=== PATIENT | male | born 1945 | race Caucasian/White ===

== ENCOUNTER 2020-12-20 11:10 | Inpatient (IN) | payer MEDICARE, OTHER ==
[2020-12-20] MEDS ORDERED: Sodium Chloride 0.9% 10 ML Syringe FLUSH PRN ×2 (11:28→12:58)
--- NOTE | 2020-12-20 12:07 | EDM.PDOC ---
ED HPI GENERAL MEDICAL PROBLEM - General Chief Complaint: Respiratory Problem Stated Complaint: COVID 3 WEEKS AGO NOT BETTER Time Seen by Provider: 12/20/20 11:15 Source of Information: Reports: Patient, RN Notes Reviewed History Limitations: Reports: No Limitations - History of Present Illness INITIAL COMMENTS - FREE TEXT/NARRATIVE: Patient is a 75-year-old male presenting to the emergency department with complaints of a 3-week history of Covid symptoms. He states he started feeling ill on 01 December. Symptoms included cough with excessive mucus production, body aches, intense headaches, fatigue, subjective fever, nausea, and decreased appetite. He was tested for Covid on December 06 and found to be positive. The symptoms have been persistent since that time. He reports mild shortness of breath and coughing fits due to mucus in his sinuses and airway. He has been checking his oxygen saturations at home and state for the most part it has been around 90. Patient does have a history of left-sided lung cancer for which she just completed chemotherapy 1 month ago. He states he wears oxygen at night but has never required supplemental oxygen during the day. He denies any chest pain, but states that sometimes when he coughs he gets a sharp pain in his left ribs. He has had no vomiting or diarrhea. On triage, patient's oxygen saturation was found to be 81% on room air. 2 L of oxygen by nasal cannula was applied and the saturations increased to 92%. Vital signs are otherwise normal. Blood pressure 135/78, pulse 84, temperature 97.7, respiratory rate 12. Generalized Pain Score (Numeric/FACES): 6 - Related Data Allergies Allergy/AdvReac Type Severity Reaction Status Date / Time celecoxib [From Celebrex] AdvReac Diarrhea Verified 04/02/20 16:57 Home Meds: Home Meds busPIRone HCl [Buspirone HCl] 15 mg PO TID 01/10/15 [History] traZODone 100 mg PO BEDTIME 01/10/15 [History] Albuterol Sulfate [Proair Hfa] 2 puff IH Q4HR PRN 10/16/15 [History] Escitalopram [Lexapro] 20 mg PO DAILY 10/16/15 [History] Tiotropium [Spiriva HandiHaler] 18 mcg INH DAILY 10/16/15 [History] atorvaSTATin [Lipitor] 80 mg PO BEDTIME 10/16/15 [History] Fluticasone Propionate [24 Hour Allergy] 2 spray NS DAILY 12/20/20 [History] Hydrocortisone [Hydrocortisone 2.5% Crm] 1 gm TOP BID PRN 12/20/20 [History] Losartan [Cozaar] 50 mg PO DAILY 12/20/20 [History] guaiFENesin [Guaifenesin] 600 mg PO DAILY 12/20/20 [History] metFORMIN [Glucophage XR] 500 mg PO DAILY 12/20/20 [History] Past Medical History Other HEENT History: wears dentures, chronic sinus infections, cerumen impaction, nasal congestion Cardiovascular History: Reports: High Cholesterol, Hypertension, Stents Other Respiratory History: laryngitis, pharyngitis, URI Other Gastrointestinal History: bloating Other Musculoskeletal History: arthritis, lumbar back pain, R side rib pain, thoracic back pain, ankle broke 8-9 years ago Other Psychiatric History: insomnia Other Endocrine/Metabolic History: pre diabetes Other Dermatologic History: actinic keratosis - Infectious Disease History Infectious Disease History: Reports: Chicken Pox, Measles - Past Surgical History Other Cardiovascular Surgeries/Procedures: stent placement approximately 2009 GI Surgical History: Reports: Colonoscopy, Hernia Repair/Other Social & Family History - Tobacco Use Tobacco Use Status *Q: Former Tobacco User Used Tobacco, but Quit: Yes Month/Year Tobacco Last Used: 2019 - Caffeine Use Caffeine Use: Reports: Coffee - Recreational Drug Use Recreational Drug Use: No ED ROS GENERAL - Review of Systems Review Of Systems: See Below Constitutional: Reports: Fever, Chills, Fatigue, Decreased Appetite HEENT: Reports: Rhinitis, Sinus Problem. Denies: Throat Pain Respiratory: Reports: Shortness of Breath, Cough. Denies: Pleuritic Chest Pain Cardiovascular: Reports: No Symptoms. Denies: Chest Pain, Lightheadedness, Palpitations, Syncope Endocrine: Reports: No Symptoms GI/Abdominal: Reports: Nausea. Denies: Abdominal Pain, Diarrhea, Vomiting : Reports: No Symptoms Musculoskeletal: Reports: Other (Generalized body aches) Skin: Reports: No Symptoms Neurological: Reports: Headache ED EXAM, GENERAL - Physical Exam Exam: See Below Exam Limited By: No Limitations General Appearance: Alert, WD/WN, No Apparent Distress Respiratory/Chest: No Respiratory Distress, No Accessory Muscle Use, Chest Non- Tender, Rhonchi (Throughout the right lung) Cardiovascular: Normal Peripheral Pulses, Regular Rate, Rhythm, No Edema, No G allop, No JVD, No Murmur, No Rub GI/Abdominal: Normal Bowel Sounds, Soft, Non-Tender, No Organomegaly, No Distention, No Abnormal Bruit, No Mass Neurological: Alert, Oriented, CN II-XII Intact, Normal Cognition, Normal Gait, Normal Reflexes, No Motor/Sensory Deficits Psychiatric: Normal Affect, Normal Mood Skin Exam: Warm, Dry, Intact, Normal Color, No Rash #1 Interpretation EKG Date: 12/20/20 Time: 11:25 Rhythm: NSR Rate (Beats/Min): 72 [place]: Normal P-Wave: Present QRS: Normal ST-T: Normal QT: Normal Course - Vital Signs Last Recorded V/S: Last Vital Signs Temp 97.7 F 12/20/20 11:19 Pulse 60 12/20/20 13:45 Resp 20 12/20/20 13:45 BP 116/77 12/20/20 13:45 Pulse Ox 96 12/20/20 13:45 - Orders/Labs/Meds Orders: Active Orders 24 hr Category Date Time Status EKG Documentation Completion [RC] STAT Care 12/20/20 11:29 Active Peripheral IV Care [RC] . DIRECTED Care 12/20/20 11:29 Active UA W/MICROSCOPIC [URIN] Stat Lab 12/20/20 12:09 Ordered Sodium Chloride 0.9% [Normal Saline] 1,000 ml Med 12/20/20 12:23 Active IV NOW Sodium Chloride 0.9% [Normal Saline] 100 ml Med 12/20/20 13:00 Active IV ASDIRECTED Sodium Chloride 0.9% [Saline Flush] Med 12/20/20 11:28 Active 10 ml FLUSH ASDIRECTED PRN Sodium Chloride 0.9% [Saline Flush] Med 12/20/20 12:58 Active 10 ml FLUSH ONETIME PRN Peripheral IV Insertion Adult [OM.PC] Stat Oth 12/20/20 11:28 Ordered EKG 12 Lead [EK] Stat Ther 12/20/20 11:28 Ordered Medication Orders Sodium Chloride (Normal Saline) 1,000 mls @ 150 mls/hr IV NOW STA Stop: 12/20/20 19:02 Last Infusion: 12/20/20 13:35 Dose: 75 mls/hr Documented by: Admin: 12/20/20 12:30 Dose: 150 mls/hr Documented by: HAFSA Sodium Chloride (Normal Saline) 100 mls @ 75 mls/hr IV ASDIRECTED MARK Last Admin: 12/20/20 13:00 Dose: 75 mls/hr Documented by: VIVIAN Sodium Chloride (Saline Flush) 10 ml FLUSH ASDIRECTED PRN PRN Reason: Keep Vein Open Last Admin: 12/20/20 11:42 Dose: 10 ml Documented by: URBAN Sodium Chloride (Saline Flush) 10 ml FLUSH ONETIME PRN PRN Reason: IV FLUSH Last Admin: 12/20/20 12:59 Dose: 10 ml Documented by: VIVIAN Labs: Laboratory Tests 12/20/20 12/20/20 12/20/20 Range/Units 11:35 11:35 11:35 WBC 6.01 (4.23-9.07) K/mm3 RBC 3.77 L (4.63-6.08) M/mm3 Hgb 10.8 L D (13.7-17.5) gm/dl Hct 34.8 L (40.1-51.0) % MCV 92.3 H (79.0-92.2) fl MCH 28.6 (25.7-32.2) pg MCHC 31.0 L (32.2-35.5) g/dl RDW Std Deviation 43.2 (35.1-43.9) fL Plt Count 218 (163-337) K/mm3 MPV 10.1 (9.4-12.3) fl Neut % (Auto) 81.8 H (34.0-67.9) % Lymph % (Auto) 4.5 L (21.8-53.1) % [place] % (Auto) 13.3 H (5.3-12.2) % Eos % (Auto) 0 L (0.8-7.0) Baso % (Auto) 0.2 (0.1-1.2) % Neut # (Auto) 4.92 (1.78-5.38) K/mm3 Lymph # (Auto) 0.27 L (1.32-3.57) K/mm3 [place] # (Auto) 0.80 (0.30-0.82) K/mm3 Eos # (Auto) 0.00 L (0.04-0.54) K/mm3 Baso # (Auto) 0.01 (0.01-0.08) K/mm3 Manual Slide Review Abnormal smear D-Dimer, Quantitative 4.31 H (0.19-0.50) mg/L Puncture Site ABG pH (7.35-7.45) ABG pCO2 (35.0-45.0) mmHg ABG pO2 (80.0-100.0) mmHg ABG HCO3 (22.0-26.0) meq/L ABG O2 Saturation (96.0-97.0) % ABG Base Excess (-2-2.0) Tyson Test A-a Gradient mmHg O2 Delivery Device Oxygen Flow Rate FiO2 (21.00-100.00) % Sodium 139 (136-145) mEq/L Potassium 4.8 (3.5-5.1) mEq/L Chloride 102 (98-107) mEq/L Carbon Dioxide 28 (21-32) mEq/L Anion Gap 13.8 (5-15) BUN 19 H (7-18) mg/dL Creatinine 1.6 H (0.7-1.3) mg/dL Est Cr Clr Drug Dosing 39.28 mL/min Estimated GFR (MDRD) 42 (>60) mL/min BUN/Creatinine Ratio 11.9 L (14-18) Glucose 134 H (83-115) mg/dL Calcium 8.7 (8.5-10.1) mg/dL Total Bilirubin 0.5 (0.2-1.0) mg/dL AST 10 L (15-37) U/L ALT 25 (16-63) U/L Alkaline Phosphatase 58 (46-116) U/L Troponin I < 0.017 (0.00-0.056) ng/mL C-Reactive Protein 12.2 H* (<1.0) mg/dL NT-Pro-B Natriuret Pep (0-450) pg/mL Total Protein 6.8 (6.4-8.2) g/dl Albumin 2.7 L (3.4-5.0) g/dl Globulin 4.1 gm/dL Albumin/Globulin Ratio 0.7 L (1-2) 12/20/20 12/20/20 Range/Units 11:35 11:40 WBC (4.23-9.07) K/mm3 RBC (4.63-6.08) M/mm3 Hgb (13.7-17.5) gm/dl Hct (40.1-51.0) % MCV (79.0-92.2) fl MCH (25.7-32.2) pg MCHC (32.2-35.5) g/dl RDW Std Deviation (35.1-43.9) fL Plt Count (163-337) K/mm3 MPV (9.4-12.3) fl Neut % (Auto) (34.0-67.9) % Lymph % (Auto) (21.8-53.1) % [place] % (Auto) (5.3-12.2) % Eos % (Auto) (0.8-7.0) Baso % (Auto) (0.1-1.2) % Neut # (Auto) (1.78-5.38) K/mm3 Lymph # (Auto) (1.32-3.57) K/mm3 [place] # (Auto) (0.30-0.82) K/mm3 Eos # (Auto) (0.04-0.54) K/mm3 Baso # (Auto) (0.01-0.08) K/mm3 Manual Slide Review D-Dimer, Quantitative (0.19-0.50) mg/L Puncture Site Rt radial ABG pH 7.42 (7.35-7.45) ABG pCO2 42.7 (35.0-45.0) mmHg ABG pO2 63.0 L (80.0-100.0) mmHg ABG HCO3 27.2 H (22.0-26.0) meq/L ABG O2 Saturation 90.8 L (96.0-97.0) % ABG Base Excess 2.9 H (-2-2.0) Tyson Test Positive A-a Gradient 83 mmHg O2 Delivery Device Nasal cannula Oxygen Flow Rate 2.0 FiO2 28.00 (21.00-100.00) % Sodium (136-145) mEq/L Potassium (3.5-5.1) mEq/L Chloride (98-107) mEq/L Carbon Dioxide (21-32) mEq/L Anion Gap (5-15) BUN (7-18) mg/dL Creatinine (0.7-1.3) mg/dL Est Cr Clr Drug Dosing mL/min Estimated GFR (MDRD) (>60) mL/min BUN/Creatinine Ratio (14-18) Glucose (83-115) mg/dL Calcium (8.5-10.1) mg/dL Total Bilirubin (0.2-1.0) mg/dL AST (15-37) U/L ALT (16-63) U/L Alkaline Phosphatase (46-116) U/L Troponin I (0.00-0.056) ng/mL C-Reactive Protein (<1.0) mg/dL NT-Pro-B Natriuret Pep 547 H (0-450) pg/mL Total Protein (6.4-8.2) g/dl Albumin (3.4-5.0) g/dl Globulin gm/dL Albumin/Globulin Ratio (1-2) Meds: Medications Generic Name Dose Route Start Last Admin Trade Name Freq PRN Reason Stop Dose Admin Sodium Chloride 1,000 mls @ 150 mls/hr 12/20/20 12:23 12/20/20 13:35 Normal Saline IV 12/20/20 19:02 75 mls/hr NOW STA Infusion Sodium Chloride 100 mls @ 75 mls/hr 12/20/20 13:00 12/20/20 13:00 Normal Saline IV 75 mls/hr ASDIRECTED MARK Administration Sodium Chloride 10 ml 12/20/20 11:28 12/20/20 11:42 Saline Flush FLUSH 10 ml ASDIRECTED PRN Administration Keep Vein Open Sodium Chloride 10 ml 12/20/20 12:58 12/20/20 12:59 Saline Flush FLUSH 10 ml ONETIME PRN Administration IV FLUSH Discontinued Medications Generic Name Dose Route Start Last Admin Trade Name Freq PRN Reason Stop Dose Admin Dexamethasone 6 mg 12/20/20 13:27 12/20/20 13:36 Dexamethasone PO 12/20/20 13:28 6 mg ONETIME ONE Administration Iopamidol 100 ml 12/20/20 12:58 12/20/20 12:59 [id number] (76%) IVPUSH 12/20/20 12:59 100 ml ONETIME ONE Administration - Re-Assessments/Exams Free Text/Narrative Re-Assessment/Exam: 12/20/20 12:30 Hematology was significant for hemoglobin low at 10.8, D-dimer elevated 4.31, BUN 19, creatinine 1.6, CRP 12.2, proBNP 547. Troponin was negative. ABGs on 2 L of oxygen by nasal cannula showed a PO2 of 63.0 with a bicarb of 27.2. Oxygen saturation was 90.8. Given the significant elevation in D-dimer and patient's hypoxia. I have ordered a CT angiogram of the chest. We will start IV fluids of NS at 150. 12/20/20 13:15 CT angiogram of the chest shows no findings of pulmonary embolism. Diffuse interstitial change within both lungs with more focal density with left upper lung as well as within both lung bases, particularly on the left side. Findings most likely represent diffuse Covid pneumonia. There is a small left-sided pleural effusion. Case discussed with hospitalist, Dr. Lee. He has accepted the patient for admission. I have ordered dexamethasone 6 mg p.o. to be given now. Patient updated on plan and he is in agreement with hospitalization. Departure - Departure Time of Disposition: 13:15 Disposition: Admitted As Inpatient 65 Condition: Good Clinical Impression: Pneumonia due to COVID-19 virus, Hypoxia - Discharge Information Referrals: Martha Hartman, SPECIFICATION CONSULTANT [Primary Care Provider] - Forms: ED Department Discharge Sepsis Event Note (ED) - Evaluation Sepsis Screening Result: No Definite Risk - Focused Exam Vital Signs: Vital Signs Temp Pulse Resp BP Pulse Ox 12/20/20 13:45 60 20 116/77 96 12/20/20 13:07 65 18 105/75 93 L 12/20/20 12:30 66 18 106/74 93 L 12/20/20 12:15 65 16 110/68 93 L 12/20/20 12:00 71 20 108/68 92 L 12/20/20 11:19 97.7 F 84 12 135/78 81 L - My Orders Last 24 Hours: My Active Orders 12/20/20 11:28 Sodium Chloride 0.9% [Saline Flush] 10 ml FLUSH ASDIRECTED PRN Peripheral IV Insertion Adult [OM.PC] Stat EKG 12 Lead [EK] Stat 12/20/20 11:29 EKG Documentation Completion [RC] STAT Peripheral IV Care [RC] . DIRECTED 12/20/20 12:09 UA W/MICROSCOPIC [URIN] Stat 12/20/20 12:23 Sodium Chloride 0.9% [Normal Saline] 1,000 ml IV NOW 12/20/20 12:58 Sodium Chloride 0.9% [Saline Flush] 10 ml FLUSH ONETIME PRN 12/20/20 13:00 Sodium Chloride 0.9% [Normal Saline] 100 ml IV ASDIRECTED - Assessment/Plan Last 24 Hours: My Active Orders 12/20/20 11:28 Sodium Chloride 0.9% [Saline Flush] 10 ml FLUSH ASDIRECTED PRN Peripheral IV Insertion Adult [OM.PC] Stat EKG 12 Lead [EK] Stat 12/20/20 11:29 EKG Documentation Completion [RC] STAT Peripheral IV Care [RC] . DIRECTED 12/20/20 12:09 UA W/MICROSCOPIC [URIN] Stat 12/20/20 12:23 Sodium Chloride 0.9% [Normal Saline] 1,000 ml IV NOW 12/20/20 12:58 Sodium Chloride 0.9% [Saline Flush] 10 ml FLUSH ONETIME PRN 12/20/20 13:00 Sodium Chloride 0.9% [Normal Saline] 100 ml IV ASDIRECTED
--- NOTE | 2020-12-20 12:20 | CR ---
Chest: Portable view of the chest is obtained. Comparison: Prior chest CT study of 03/20/20 and chest x-ray of 08/30/19. Patchy areas of increased density are seen with left, mid, and lower lung. Lung markings are diffusely increased on the right side. Left-sided infusion port is seen. Bony structures show nothing acute. Heart size and mediastinum are normal. Impression: 1. Increased density within the left lung base as well as diffuse increased right-sided lung markings. Findings presumably represent diffuse change from Covid pneumonia. Diagnostic code #3
[2020-12-20] MEDS ORDERED: Sodium Chloride 0.9% 1,000 ML IV STA (12:23)
[2020-12-20] MEDS ORDERED: Iopamidol 755 Mg/ML 100 ML Bottle IVPUSH ONE (12:58)
[2020-12-20] MEDS ORDERED: Sodium Chloride 0.9% 100 ML IV SCH (13:00)
--- NOTE | 2020-12-20 13:16 | CT ---
CT chest Technique: Multiple axial sections through the chest were obtained. Intravenous contrast was utilized as study was performed as a pulmonary angiogram protocol. Comparison: Prior chest CT of 03/20/20. Findings: Pulmonary arteries are well opacified. No filling defects are seen to indicate pulmonary embolism. Thoracic aorta shows atherosclerotic change without aneurysm. Small lymph nodes are seen which are believed to be within normal limits. No pericardial thickening is seen. Left-sided infusion port is noted. Visualized upper abdominal structures shows no discrete abnormality. Diffuse interstitial change is seen within both lungs. Slight parenchymal density is noted within the left upper lung. Increased density is noted within both lower lungs, worse on the left side. Small left-sided pleural effusion is noted. Bone window settings were reviewed which shows mild diffuse degenerative change within the thoracic spine. No acute osseous abnormality is appreciated. Impression: 1. No findings of pulmonary embolism. 2. Diffuse interstitial change within both lungs with more focal density with left upper lung as well as within both lung bases, particularly on the left side. Findings most likely represent diffuse Covid pneumonia. 3. Small left-sided pleural effusion. Diagnostic code #3
[2020-12-20] MEDS ORDERED: Dexamethasone 4 MG Tab PO ONE (13:27)
[2020-12-20] MEDS ORDERED: Ondansetron 4 MG/2 ML SDV IV PRN (14:18)
[2020-12-20] MEDS ORDERED: Acetaminophen 325 MG Tab PO PRN (14:18)
[2020-12-20] MEDS ORDERED: cefTRIAXone 2 GM in Sodium Chloride 0.9% 100 ML IV SCH (14:30)
[2020-12-20] MEDS ORDERED: Albuterol 6.7 GM Inhaler INH PRN (14:35)
--- NOTE | 2020-12-20 14:50 | PCM.HP.2 ---
<Des Rogel - Last Filed: 12/20/20 15:24> H&P History of Present Illness - General Date of Service: 12/20/20 Admit Problem/Dx: Admission Diagnosis/Problem Admission Diagnosis/Problem Pneumonia Source of Information: Patient, Old Records, Provider, RN, RN Notes Reviewed History Limitations: Reports: No Limitations - History of Present Illness Initial Comments - Free Text/Narative: This is a 75-year-old male who presents to our ED on 12/20/2020 with complaints of 3 weeks of Covid symptoms that are not getting any better. He reports he started to feel ill on 01 December and he has been feeling about the same or worse since then. Reports cough, excessive mucus production, body aches, headaches, fatigue, fever, nausea, notes of breath, and decreased appetite. He reports he was tested for Covid on December 06 and this returned positive. Ports he does have a pulse oximeter at home and his saturations around 90%. He does have a history of left-sided lung cancer for which he completed therapy about 1 week ago. He reports he was seeing Dr. Carr, oncology, and that his mass has resolved. Plan is to obtain another CT scan in January. Reports he wears oxygen at night but is never required oxygen during the day. Denies any chest pain but reports when he does have coughing fits he will have left-sided rib pain. Denies any vomiting or diarrhea. In the ED triage he was noted to have saturations of 81% on room air. He was placed on 2 L of oxygen and this increases saturation to 92%. Blood pressure is 135/78. Pulse 84. Temperature 97.7. Respiratory rate 12. Twelve-lead EKG is obtained showing a sinus rhythm at 72 bpm with no ischemic changes. In the ED labs were obtained. WBC was normal at 6.01. Hemoglobin 10.8. Platelets 2 18,000. Neutrophils are elevated at 81.8%. D-dimer was obtained and was quite high at 4.31. Sodium was 139. Potassium 4.8. Chloride 102. Carbon dioxide 28. Anion gap 13.8. BUN was 19. Creatinine 1.6. GFR was 42. Glucose 134. Calcium was 8.7. Bilirubin 0.5. AST was 10, ALT 25, alkaline phosphatase 58. Troponin was less than 0.017. CRP was 12.2. Protein was 6.8. Albumin was low at 2.7. UA was negative. ABG was obtained in the right radial showing a pH of 7.42. PCO2 of 42.7. PO2 of 63.0. HCO3 of 27.2. O2 saturation 90.8. Base excess of 2.9. A-a gradient was 83. This was obtained while on 2 L of oxygen via nasal cannula. proBNP was 547. He was started on IV fluids at 150 mils an hour and this was decreased to 75 mils an hour. He was given 6 mg of dexamethasone. Chest x-ray is obtained and interpreted by Dr. Abernathy as "1. Increased density within the lung base as well as diffusely increased right- sided lung markings. Findings presumably represent diffuse change from Covid pneumonia." Given his elevated D-dimer CT angiogram of the chest was obtained and interpreted by Dr. Abernathy as "1. No findings of pulmonary embolism. 2. Diffuse interstitial change within both lungs with more focal density within the left upper lung as well as within both lung bases particularly on the left side. Findings most likely represent diffuse Covid pneumonia. 3. Small left-sided pleural effusion." He carries a history of HLD, HTN, prior cardiac stents, chronic lumbar back pain, insomnia, prediabetes, lung cancer. He is a former smoker who quit in 2019. His PCP is Martha Hartman NP with the [facility]. He is a full code. He subsequently admitted to the medical floor on telemetry for management of his post Covid syndrome and hypoxia. Generalized Pain Score (Numeric/FACES): 6 - Related Data Allergies/Adverse Reactions: Allergies Allergy/AdvReac Type Severity Reaction Status Date / Time celecoxib [From Celebrex] AdvReac Diarrhea Verified 04/02/20 16:57 Home Medications: Home Meds busPIRone HCl [Buspirone HCl] 15 mg PO TID 01/10/15 [History] traZODone 100 mg PO BEDTIME 01/10/15 [History] Albuterol Sulfate [Proair Hfa] 2 puff IH Q4HR PRN 10/16/15 [History] Escitalopram [Lexapro] 20 mg PO DAILY 10/16/15 [History] Tiotropium [Spiriva HandiHaler] 18 mcg INH DAILY 10/16/15 [History] atorvaSTATin [Lipitor] 80 mg PO BEDTIME 10/16/15 [History] Fluticasone Propionate [24 Hour Allergy] 2 spray NS DAILY 12/20/20 [History] Hydrocortisone [Hydrocortisone 2.5% Crm] 1 gm TOP BID PRN 12/20/20 [History] Losartan [Cozaar] 50 mg PO DAILY 12/20/20 [History] guaiFENesin [Guaifenesin] 600 mg PO DAILY 12/20/20 [History] metFORMIN [Glucophage XR] 500 mg PO DAILY 12/20/20 [History] Past Medical History Other HEENT History: wears dentures, chronic sinus infections, cerumen impaction, nasal congestion Cardiovascular History: Reports: High Cholesterol, Hypertension, Stents Other Respiratory History: laryngitis, pharyngitis, URI Other Gastrointestinal History: bloating Other Musculoskeletal History: arthritis, lumbar back pain, R side rib pain, thoracic back pain, ankle broke 8-9 years ago Other Psychiatric History: insomnia Other Endocrine/Metabolic History: pre diabetes Other Dermatologic History: actinic keratosis - Infectious Disease History Infectious Disease History: Reports: Chicken Pox, Measles - Past Surgical History Other Cardiovascular Surgeries/Procedures: stent placement approximately 2009 GI Surgical History: Reports: Colonoscopy, Hernia Repair/Other Social & Family History - Tobacco Use Tobacco Use Status *Q: Former Tobacco User Used Tobacco, but Quit: Yes Month/Year Tobacco Last Used: 2019 - Caffeine Use Caffeine Use: Reports: Coffee - Recreational Drug Use Recreational Drug Use: No H&P Review of Systems - Review of Systems: Review Of Systems: See Below General: Reports: Fever, Chills, Malaise, Weakness, Fatigue, Decreased Appetite. Denies: Night Sweats, Diaphoresis HEENT: Reports: Headaches, Rhinitis, Sinus Congestion. Denies: Sore Throat Pulmonary: Reports: Shortness of Breath, Wheezing, Pleuritic Chest Pain (when coughing hard ), Cough, Sputum. Denies: Hemoptysis Cardiovascular: Reports: Dyspnea on Exertion. Denies: Chest Pain, Palpitations, Edema, Lightheadedness, Blood Pressure Problem Gastrointestinal: Reports: No Symptoms, Nausea. Denies: Abdominal Pain, Constipation, Diarrhea, Vomiting Genitourinary: Reports: No Symptoms. Denies: Pain Musculoskeletal: Reports: Back Pain (chronic ), Muscle Pain (Generalized ) Skin: Reports: No Symptoms. Denies: Cyanosis Psychiatric: Reports: No Symptoms. Denies: Confusion Neurological: Reports: No Symptoms. Denies: Confusion, Numbness, Pre-Existing Deficit, Tingling, Difficulty Walking, Gait Disturbance Exam - Exam Exam: See Below - Vital Signs Vital Signs: Last Vital Signs Temp 97.7 F 12/20/20 11:19 Pulse 60 12/20/20 13:45 Resp 20 12/20/20 13:45 BP 116/77 12/20/20 13:45 Pulse Ox 96 12/20/20 13:45 Weight: 102.058 kg - Exam Quality Assessment: Supplemental Oxygen (2L), DVT Prophylaxis. No: Urinary Catheter General: Alert, Oriented, Cooperative HEENT: Conjunctiva Clear, EACs Clear, Posterior Pharynx Clear. No: Mucosa Moist & [place] Neck: Supple, Trachea Midline Lungs: Normal Respiratory Effort, Decreased Breath Sounds, Rhonchi (right ), Wheezing (diffuse ), Other (Port in place on left chest ) Cardiovascular: Regular Rate, Regular Rhythm GI/Abdominal Exam: Normal Bowel Sounds, Soft, Non-Tender, No Distention (Male) Exam: Deferred Rectal (Males) Exam: Deferred Back Exam: Normal Inspection, Full Range of Motion Extremities: Normal Inspection, Normal Range of Motion, Non-Tender, No Pedal Edema, Normal Capillary Refill Peripheral Pulses: 2+: Dorsalis Pedis (L), Dorsalis Pedis (R), 3+: Radial (L), Radial (R) Skin: Warm, Dry, Intact Neurological: Cranial Nerves Intact (Grossly ) Neuro Extensive - Mental Status: Alert, Oriented x3, Normal Mood/Affect - Patient Data Lab Results Last 24 hrs: Laboratory Results - last 24 hr 12/20/20 12/20/20 12/20/20 Range/Units 11:35 11:35 11:35 WBC 6.01 (4.23-9.07) K/mm3 RBC 3.77 L (4.63-6.08) M/mm3 Hgb 10.8 L D (13.7-17.5) gm/dl Hct 34.8 L (40.1-51.0) % MCV 92.3 H (79.0-92.2) fl MCH 28.6 (25.7-32.2) pg MCHC 31.0 L (32.2-35.5) g/dl RDW Std Deviation 43.2 (35.1-43.9) fL Plt Count 218 (163-337) K/mm3 MPV 10.1 (9.4-12.3) fl Neut % (Auto) 81.8 H (34.0-67.9) % Lymph % (Auto) 4.5 L (21.8-53.1) % Louis[place] % (Auto) 13.3 H (5.3-12.2) % Eos % (Auto) 0 L (0.8-7.0) Baso % (Auto) 0.2 (0.1-1.2) % Neut # (Auto) 4.92 (1.78-5.38) K/mm3 Lymph # (Auto) 0.27 L (1.32-3.57) K/mm3 [place] # (Auto) 0.80 (0.30-0.82) K/mm3 Eos # (Auto) 0.00 L (0.04-0.54) K/mm3 Baso # (Auto) 0.01 (0.01-0.08) K/mm3 Manual Slide Review Abnormal smear D-Dimer, Quantitative 4.31 H (0.19-0.50) mg/L Puncture Site ABG pH (7.35-7.45) ABG pCO2 (35.0-45.0) mmHg ABG pO2 (80.0-100.0) mmHg ABG HCO3 (22.0-26.0) meq/L ABG O2 Saturation (96.0-97.0) % ABG Base Excess (-2-2.0) Tyson Test A-a Gradient mmHg O2 Delivery Device Oxygen Flow Rate FiO2 (21.00-100.00) % Sodium 139 (136-145) mEq/L Potassium 4.8 (3.5-5.1) mEq/L Chloride 102 (98-107) mEq/L Carbon Dioxide 28 (21-32) mEq/L Anion Gap 13.8 (5-15) BUN 19 H (7-18) mg/dL Creatinine 1.6 H (0.7-1.3) mg/dL Est Cr Clr Drug Dosing 39.28 mL/min Estimated GFR (MDRD) 42 (>60) mL/min BUN/Creatinine Ratio 11.9 L (14-18) Glucose 134 H (83-115) mg/dL Calcium 8.7 (8.5-10.1) mg/dL Total Bilirubin 0.5 (0.2-1.0) mg/dL AST 10 L (15-37) U/L ALT 25 (16-63) U/L Alkaline Phosphatase 58 (46-116) U/L Troponin I < 0.017 (0.00-0.056) ng/mL C-Reactive Protein 12.2 H* (<1.0) mg/dL NT-Pro-B Natriuret Pep (0-450) pg/mL Total Protein 6.8 (6.4-8.2) g/dl Albumin 2.7 L (3.4-5.0) g/dl Globulin 4.1 gm/dL Albumin/Globulin Ratio 0.7 L (1-2) Urine Color (Yellow) Urine Appearance (Clear) Urine pH (5.0-8.0) Ur Specific [place] (1.005-1.030) Urine Protein (Negative) Urine Glucose (UA) (Negative) Urine Ketones (Negative) Urine Occult Blood (Negative) Urine Nitrite (Negative) Urine Bilirubin (Negative) Urine Urobilinogen (0.2-1.0) Ur Leukocyte Esterase (Negative) Urine RBC (0-5) /hpf Urine WBC (0-5) /hpf Ur Squamous Epith Cells (0-5) /hpf Amorphous Sediment (NOT SEEN) /hpf Urine Bacteria (FEW) /hpf Urine Mucus (FEW) /hpf 12/20/20 12/20/20 12/20/20 Range/Units 11:35 11:40 13:54 WBC (4.23-9.07) K/mm3 RBC (4.63-6.08) M/mm3 Hgb (13.7-17.5) gm/dl Hct (40.1-51.0) % MCV (79.0-92.2) fl MCH (25.7-32.2) pg MCHC (32.2-35.5) g/dl RDW Std Deviation (35.1-43.9) fL Plt Count (163-337) K/mm3 MPV (9.4-12.3) fl Neut % (Auto) (34.0-67.9) % Lymph % (Auto) (21.8-53.1) % Louisa % (Auto) (5.3-12.2) % Eos % (Auto) (0.8-7.0) Baso % (Auto) (0.1-1.2) % Neut # (Auto) (1.78-5.38) K/mm3 Lymph # (Auto) (1.32-3.57) K/mm3 Louisa # (Auto) (0.30-0.82) K/mm3 Eos # (Auto) (0.04-0.54) K/mm3 Baso # (Auto) (0.01-0.08) K/mm3 Manual Slide Review D-Dimer, Quantitative (0.19-0.50) mg/L Puncture Site Rt radial ABG pH 7.42 (7.35-7.45) ABG pCO2 42.7 (35.0-45.0) mmHg ABG pO2 63.0 L (80.0-100.0) mmHg ABG HCO3 27.2 H (22.0-26.0) meq/L ABG O2 Saturation 90.8 L (96.0-97.0) % ABG Base Excess 2.9 H (-2-2.0) Tyson Test Positive A-a Gradient 83 mmHg O2 Delivery Device Nasal cannula Oxygen Flow Rate 2.0 FiO2 28.00 (21.00-100.00) % Sodium (136-145) mEq/L Potassium (3.5-5.1) mEq/L Chloride (98-107) mEq/L Carbon Dioxide (21-32) mEq/L Anion Gap (5-15) BUN (7-18) mg/dL Creatinine (0.7-1.3) mg/dL Est Cr Clr Drug Dosing mL/min Estimated GFR (MDRD) (>60) mL/min BUN/Creatinine Ratio (14-18) Glucose (83-115) mg/dL Calcium (8.5-10.1) mg/dL Total Bilirubin (0.2-1.0) mg/dL AST (15-37) U/L ALT (16-63) U/L Alkaline Phosphatase (46-116) U/L Troponin I (0.00-0.056) ng/mL C-Reactive Protein (<1.0) mg/dL NT-Pro-B Natriuret Pep 547 H (0-450) pg/mL Total Protein (6.4-8.2) g/dl Albumin (3.4-5.0) g/dl Globulin gm/dL Albumin/Globulin Ratio (1-2) Urine Color Light yellow (Yellow) Urine Appearance Slt cloudy H (Clear) Urine pH 7.0 (5.0-8.0) Ur Specific [place] 1.015 (1.005-1.030) Urine Protein Negative (Negative) Urine Glucose (UA) Negative (Negative) Urine Ketones Negative (Negative) Urine Occult Blood Negative (Negative) Urine Nitrite Negative (Negative) Urine Bilirubin Negative (Negative) Urine Urobilinogen 1.0 (0.2-1.0) Ur Leukocyte Esterase Negative (Negative) Urine RBC 0-5 (0-5) /hpf Urine WBC Not seen (0-5) /hpf Ur Squamous Epith Cells 0-5 (0-5) /hpf Amorphous Sediment Few H (NOT SEEN) /hpf Urine Bacteria Few (FEW) /hpf Urine Mucus Not seen (FEW) /hpf Result Diagrams: 12/20/20 11:35 12/20/20 11:35 Sepsis Event Note - Evaluation Sepsis Screening Result: No Definite Risk - Focused Exam Vital Signs: Vital Signs Temp Pulse Resp BP Pulse Ox 12/20/20 13:45 60 20 116/77 96 12/20/20 13:07 65 18 105/75 93 L 12/20/20 12:30 66 18 106/74 93 L 12/20/20 12:15 65 16 110/68 93 L 12/20/20 12:00 71 20 108/68 92 L 12/20/20 11:19 97.7 F 84 12 135/78 81 L - Problem List (1) Elevated d-dimer SNOMED Code(s): 431542500 ICD Code: R79.89 - OTHER SPECIFIED ABNORMAL FINDINGS OF BLOOD CHEMISTRY Status: Acute Priority: High Current Visit: Yes (2) Hypoxia SNOMED Code(s): 387171501 ICD Code: R09.02 - HYPOXEMIA Status: Acute Priority: High Current Visit: Yes (3) CKD (chronic kidney disease) stage 3, GFR 30-59 ml/min SNOMED Code(s): 805818877 ICD Code: N18.30 - CHRONIC KIDNEY DISEASE, STAGE 3 UNSPECIFIED Status: Chronic Priority: High Current Visit: Yes Qualifiers: Chronic kidney disease stage 3 subtype: stage 3b (GFR 30-44) Qualified Code(s): N18.32 - Chronic kidney disease, stage 3b (4) Post-acute COVID-19 syndrome SNOMED Code(s): 347108119, 528419888766679969 ICD Code: B94.8 - SEQUELAE OF OTH INFECTIOUS AND PARASITIC DISEASES Status: Acute Priority: High Current Visit: Yes (5) History of COVID-19 SNOMED Code(s): 240525998769385150, 088073788340269099 ICD Code: Z86.16 - PERSONAL HISTORY OF COVID-19 Status: Acute Priority: High Current Visit: Yes (6) HLD (hyperlipidemia) SNOMED Code(s): 72482021 ICD Code: E78.5 - HYPERLIPIDEMIA, UNSPECIFIED Status: Acute Current Visit: Yes (7) HTN (hypertension) SNOMED Code(s): 68195211 ICD Code: I10 - ESSENTIAL (PRIMARY) HYPERTENSION Status: Acute Current Visit: Yes (8) Chronic lumbar pain SNOMED Code(s): 417962039 ICD Code: M54.5 - LOW BACK PAIN; G89.29 - OTHER CHRONIC PAIN Status: Acute Current Visit: Yes (9) Prediabetes SNOMED Code(s): 753476441 ICD Code: R73.03 - PREDIABETES Status: Acute Current Visit: Yes (10) History of heart artery stent SNOMED Code(s): 661987361, 369001010 ICD Code: Z95.5 - PRESENCE OF CORONARY ANGIOPLASTY IMPLANT AND GRAFT Status: Acute Current Visit: Yes (11) Hypoalbuminemia SNOMED Code(s): 098966983 ICD Code: E88.09 - OT DISORDERS OF PLASMA-PROTEIN METABOLISM, NEC Status: Acute Current Visit: Yes (12) Former smoker SNOMED Code(s): 6356982 ICD Code: Z87.891 - PERSONAL HISTORY OF NICOTINE DEPENDENCE Status: Acute Current Visit: Yes (13) History of lung cancer SNOMED Code(s): 161591005, 234623721 ICD Code: Z85.118 - PERSONAL HISTORY OF MALIGNANT NEOPLASM OF BRONCHUS AND LUNG Status: Acute Priority: High Current Visit: Yes Problem List Initiated/Reviewed/Updated: Yes Orders Last 24hrs: Active Orders 24 hr Category Date Time Status Patient Status [ADT] Routine ADT 12/20/20 13:53 Active Cardiac Monitoring [RC] CONTINUOUS Care 12/20/20 14:19 Ordered Height and Weight [RC] DAILY Care 12/20/20 14:18 Ordered Intake and Output [RC] QSHIFT Care 12/20/20 14:19 Ordered Nurse Communication: Isolation [RC] ASDIRECTED Care 12/20/20 14:21 Ordered Oxygen Therapy [RC] PRN Care 12/20/20 14:19 Ordered Positioning, Patient [RC] ASDIRECTED Care 12/20/20 14:20 Ordered Pulse Oximetry [RC] CONTINUOUS Care 12/20/20 14:19 Ordered RT Chest Physiotherapy [RC] ASDIRECTED Care 12/20/20 14:32 Active RT Incentive Spirometry [RC] ASDIRECTED Care 12/20/20 14:20 Ordered RT Post Treatment Assessment [RC] Click to Edit Care 12/20/20 14:35 Ordered RT Pre-Treatment Assessment [RC] Click to Edit Care 12/20/20 14:35 Ordered Up ad Jaci [RC] ASDIRECTED Care 12/20/20 14:18 Ordered VTE/DVT Education [RC] PER UNIT ROUTINE Care 12/20/20 14:19 Ordered Vital Signs [RC] Q4H Care 12/20/20 14:19 Ordered Consult to Spiritual Care [CONS] Routine Cons 12/20/20 14:18 Ordered Respiratory Care Assess and Treatment [CONS] Routine Cons 12/20/20 14:18 Ordered Regular Diet [DIET] Diet 12/20/20 Dinner Ordered CBC WITH AUTO DIFF [HEME] AM Lab 12/21/20 05:11 Ordered CBC WITH AUTO DIFF [HEME] AM Lab 12/22/20 05:11 Ordered CBC WITH AUTO DIFF [HEME] AM Lab 12/23/20 05:11 Ordered CBC WITH AUTO DIFF [HEME] AM Lab 12/24/20 05:11 Ordered CMP [COMPREHENSIVE METABOLIC PN,CMP] [CHEM] AM Lab 12/21/20 05:11 Ordered CMP [COMPREHENSIVE METABOLIC PN,CMP] [CHEM] AM Lab 12/22/20 05:11 Ordered CMP [COMPREHENSIVE METABOLIC PN,CMP] [CHEM] AM Lab 12/23/20 05:11 Ordered CMP [COMPREHENSIVE METABOLIC PN,CMP] [CHEM] AM Lab 12/24/20 05:11 Ordered DD [D-DIMER QUANTITATIVE] [COAG] Q48H Lab 12/22/20 14:32 Ordered DD [D-DIMER QUANTITATIVE] [COAG] Q48H Lab 12/24/20 14:32 Ordered DD [D-DIMER QUANTITATIVE] [COAG] Q48H Lab 12/26/20 14:32 Ordered MAGNESIUM [CHEM] AM Lab 12/21/20 05:11 Ordered MAGNESIUM [CHEM] AM Lab 12/22/20 05:11 Ordered MAGNESIUM [CHEM] AM Lab 12/23/20 05:11 Ordered MAGNESIUM [CHEM] AM Lab 12/24/20 05:11 Ordered PHOSPHORUS [CHEM] AM Lab 12/21/20 05:11 Ordered VITAMIN D,25-HYDROXY [CHEM] Routine Lab 12/20/20 14:32 Ordered Acetaminophen [TylenoL] Med 12/20/20 14:18 Ordered 650 mg PO Q4H PRN Albuterol [Proventil HFA] Med 12/20/20 14:35 Ordered See Dose Instructions INH Q2H PRN Azithromycin [Zithromax] Med 12/20/20 14:30 Ordered 500 mg PO DAILY Cholecalciferol (Vitamin D3) [Vitamin D3] Med 12/20/20 14:45 Ordered 5,000 unit PO DAILY Enoxaparin [Lovenox] Med 12/20/20 16:00 Once 50 mg SUBCUT ONETIME ONE Enoxaparin [Lovenox] Med 12/21/20 06:00 Active 50 mg SUBCUT Q12H Escitalopram Med 12/21/20 09:00 Ordered 20 mg PO DAILY Losartan [Cozaar] Med 12/21/20 09:00 Ordered 50 mg PO DAILY Ondansetron [Zofran] Med 12/20/20 14:18 Ordered 4 mg IV Q6H PRN Sodium Chloride 0.9% [Normal Saline] 100 ml Med 12/20/20 13:00 Active IV ASDIRECTED Sodium Chloride 0.9% [Saline Flush] Med 12/20/20 11:28 Active 10 ml FLUSH ASDIRECTED PRN Tiotropium Med 12/21/20 09:00 Ordered 18 mcg INH DAILY Zinc Sulfate [Zincate] Med 12/20/20 14:45 Ordered 220 mg PO DAILY busPIRone [Buspar] Med 12/20/20 15:00 Ordered 15 mg PO TID cefTRIAXone [Rocephin] 2 gm Med 12/20/20 14:30 Ordered Sodium Chloride 0.9% [Normal Saline] 100 ml IV Q24H dexAMETHasone Med 12/21/20 09:00 Ordered 6 mg PO DAILY traZODone Med 12/20/20 21:00 Ordered 100 mg PO BEDTIME Isolation [COMM] Stat Oth 12/20/20 14:20 Ordered Peripheral IV Insertion Adult [OM.PC] Stat Oth 12/20/20 11:28 Ordered EKG 12 Lead [EK] Stat Ther 12/20/20 11:28 Ordered Medication Orders Acetaminophen (Tylenol) 650 mg PO Q4H PRN PRN Reason: Pain (Mild 1-3)/fever Albuterol (Proventil Hfa) 0 gm INH Q2H PRN PRN Reason: SOB/Wheezing Azithromycin (Zithromax) 500 mg PO DAILY MARK Stop: 12/22/20 09:01 Buspirone HCl (Buspar) 15 mg PO TID [facility] Cholecalciferol (Vitamin D3) 5,000 unit PO DAILY [facility] Dexamethasone (Dexamethasone) 6 mg PO DAILY MARK Stop: 12/29/20 09:01 Enoxaparin Sodium (Lovenox) 50 mg SUBCUT ONETIME ONE Stop: 12/20/20 16:01 Enoxaparin Sodium (Lovenox) 50 mg SUBCUT Q12H [facility] Sodium Chloride (Normal Saline) 100 mls @ 75 mls/hr IV ASDIRECTED [facility] Last Admin: 12/20/20 13:00 Dose: 75 mls/hr Documented by: VIIVAN Ceftriaxone Sodium 2 gm/ (Sodium Chloride) 100 mls @ 200 mls/hr IV Q24H [facility] Stop: 12/24/20 14:59 Losartan Potassium (Cozaar) 50 mg PO DAILY [facility] Non-Formulary Medication (Escitalopram) 20 mg PO DAILY [facility] Non-Formulary Medication (Tiotropium) 18 mcg INH DAILY [facility] Non-Formulary Medication (Trazodone) 100 mg PO BEDTIME MARK Ondansetron HCl (Zofran) 4 mg IV Q6H PRN PRN Reason: Nausea/Vomiting Sodium Chloride (Saline Flush) 10 ml FLUSH ASDIRECTED PRN PRN Reason: Keep Vein Open Last Admin: 12/20/20 11:42 Dose: 10 ml Documented by: URBAN Zinc Sulfate (Zincate) 220 mg PO DAILY [facility] Assessment/Plan Comment:: Assessment - Day of admission 12/20/20 * 75 yo male who presents to our ED with complaints of COVID-19 symptoms for over 3 weeks * Started feeling ill on 12/01/20 and COVID-19 positive on 12/06/20 * Reports SOB, cough, sputum, excessive sputum, fatigue, fever, chills, nausea, decreased appetite and generalized myalgias * History of left lung cancer in remission, HLD, HTN, Cardiac stents, lumbar pain, insomnia, pre-diabetes, former smoker * In ED oxygen found to be 81% on room air; Up to 92% with 2L * 12-Lead EKG shows NSR at 72 BPM with no ectopy * CXR in ED: " Increased density within the left lung base as well as diffuse increased right-sided lung markings. Findings presumably represent diffuse change from Covid pneumonia." * Labs in ED: * WBC 6.01 * Hemoglobin 10.8 * Platelets 218,000. * Neutrophils 81.8% * D-dimer 4.31 * Sodium 139 * Potassium 4.8 * Carbon dioxide 28 * Anion gap 13.8 * BUN 19, creatinine 1.6, GFR 42 (appears to be at baseline from prior visits) * Glucose 134 * Bilirubin 0.5 * AST 10, ALT 25, alkaline phosphatase 58 * Troponin less than 0.017 * CRP 12.2 * Albumin 2.7 * BNP 547 * UA negative * ABG: Right radial pH 7.42, PCO2 42.7, PO2 63.0, HCO3 27.2, O2 saturation 90.8, base excess 2.9, A-a gradient 83, on 2L via NC * CTA obtained in ED: * 1. No findings of pulmonary embolism * 2. Diffuse interstitial change within both lungs with more focal density with left upper lung as well as within both lung bases. Particular on the left side. Findings most likely represent diffuse Covid pneumonia. * 3. Small left-sided pleural effusion. * Subsequently admitted to the hospital floor on telemetry for management of post Covid syndrome and hypoxia. PLAN: Post-acute COVID-19 syndrome Elevated d-dimer Hypoxia History of COVID-19 Former smoker History of lung cancer * O2 as needed to keep saturations 88-95% * IS/Acapella * RT consultation * PRN albuterol * Continue home respiratory meds * Encourage proning and ambulating in room * Monitor daily labs * D-Dimer Q48 hours * 0.5mg/kg BID Lovenox for elevated d-dimer * Airborne/contact isolation * Dexamethasone 6mg daily - day 12/02 * Will hold off on remdesivir as patient is outside of window * Access port in left chest * Azithromycin 500mg daily - day 11/25 * Rocephin 2gm daily - Day 11/27 * Mucinex 600mg BID * Supplement vitamin D and zinc * Check vitamin D level * Telemetry/continuous pulse oximetry Hypoalbuminemia * Sewage Disposal Worker consult Prediabetes * Check A1C * QID AC and Bedtime glucose checks * Low intensity sliding scale insulin * Consistent carbohydrate diet * Sewage Disposal Worker consultation CKD (chronic kidney disease) stage 3, GFR 30-59 ml/min HLD (hyperlipidemia) HTN (hypertension) Chronic lumbar pain History of heart artery stent * Telemetry * Review/reconcile home medications Code status: Full Code PCP: Martha Hartman NP with the [place] [facility] Prophylaxis: Lovenox Social: Patient resides alone in a house in [place]. He has family in the area Disposition: Patient admitted inpatient for management of post-COVID symptoms, Hypoxia Prognosis: Good, although patient is former smoker and has history of lung cancer. May require oxygen at discharge. - Mortality Measure Prognosis:: Good <Jesus Wade - Last Filed: 12/20/20 16:04> H&P History of Present Illness - General Admit Problem/Dx: Admission Diagnosis/Problem Admission Diagnosis/Problem Pneumonia - History of Present Illness Initial Comments - Free Text/Narative: I have seen and examined the patient independently of Des Rogel PA-C. I have reviewed the orders and agree with the plan of care as outlined by him. I have discussed the case with him. Please see orders. Exam - Vital Signs Vital Signs: Last Vital Signs Temp 36.4 C 12/20/20 14:47 Pulse 62 12/20/20 14:47 Resp 20 12/20/20 14:47 BP 92/73 12/20/20 14:47 Pulse Ox 95 12/20/20 15:00 - Patient Data Lab Results Last 24 hrs: Laboratory Results - last 24 hr 12/20/20 12/20/20 12/20/20 Range/Units 11:35 11:35 11:35 WBC 6.01 (4.23-9.07) K/mm3 RBC 3.77 L (4.63-6.08) M/mm3 Hgb 10.8 L D (13.7-17.5) gm/dl Hct 34.8 L (40.1-51.0) % MCV 92.3 H (79.0-92.2) fl MCH 28.6 (25.7-32.2) pg MCHC 31.0 L (32.2-35.5) g/dl RDW Std Deviation 43.2 (35.1-43.9) fL Plt Count 218 (163-337) K/mm3 MPV 10.1 (9.4-12.3) fl Neut % (Auto) 81.8 H (34.0-67.9) % Lymph % (Auto) 4.5 L (21.8-53.1) % Louisa % (Auto) 13.3 H (5.3-12.2) % Eos % (Auto) 0 L (0.8-7.0) Baso % (Auto) 0.2 (0.1-1.2) % Neut # (Auto) 4.92 (1.78-5.38) K/mm3 Lymph # (Auto) 0.27 L (1.32-3.57) K/mm3 Louisa # (Auto) 0.80 (0.30-0.82) K/mm3 Eos # (Auto) 0.00 L (0.04-0.54) K/mm3 Baso # (Auto) 0.01 (0.01-0.08) K/mm3 Manual Slide Review Abnormal smear D-Dimer, Quantitative 4.31 H (0.19-0.50) mg/L Puncture Site ABG pH (7.35-7.45) ABG pCO2 (35.0-45.0) mmHg ABG pO2 (80.0-100.0) mmHg ABG HCO3 (22.0-26.0) meq/L ABG O2 Saturation (96.0-97.0) % ABG Base Excess (-2-2.0) Tyson Test A-a Gradient mmHg O2 Delivery Device Oxygen Flow Rate FiO2 (21.00-100.00) % Sodium 139 (136-145) mEq/L Potassium 4.8 (3.5-5.1) mEq/L Chloride 102 (98-107) mEq/L Carbon Dioxide 28 (21-32) mEq/L Anion Gap 13.8 (5-15) BUN 19 H (7-18) mg/dL Creatinine 1.6 H (0.7-1.3) mg/dL Est Cr Clr Drug Dosing 39.28 mL/min Estimated GFR (MDRD) 42 (>60) mL/min BUN/Creatinine Ratio 11.9 L (14-18) Glucose 134 H (83-115) mg/dL Hemoglobin A1c ( - 5.6) % Calcium 8.7 (8.5-10.1) mg/dL Total Bilirubin 0.5 (0.2-1.0) mg/dL AST 10 L (15-37) U/L ALT 25 (16-63) U/L Alkaline Phosphatase 58 (46-116) U/L Troponin I < 0.017 (0.00-0.056) ng/mL C-Reactive Protein 12.2 H* (<1.0) mg/dL NT-Pro-B Natriuret Pep (0-450) pg/mL Total Protein 6.8 (6.4-8.2) g/dl Albumin 2.7 L (3.4-5.0) g/dl Globulin 4.1 gm/dL Albumin/Globulin Ratio 0.7 L (1-2) Vitamin D 25-Hydroxy (30.0-100.0) ng/ml Urine Color (Yellow) Urine Appearance (Clear) Urine pH (5.0-8.0) Ur Specific [place] (1.005-1.030) Urine Protein (Negative) Urine Glucose (UA) (Negative) Urine Ketones (Negative) Urine Occult Blood (Negative) Urine Nitrite (Negative) Urine Bilirubin (Negative) Urine Urobilinogen (0.2-1.0) Ur Leukocyte Esterase (Negative) Urine RBC (0-5) /hpf Urine WBC (0-5) /hpf Ur Squamous Epith Cells (0-5) /hpf Amorphous Sediment (NOT SEEN) /hpf Urine Bacteria (FEW) /hpf Urine Mucus (FEW) /hpf 12/20/20 12/20/20 12/20/20 Range/Units 11:35 11:35 11:35 WBC (4.23-9.07) K/mm3 RBC (4.63-6.08) M/mm3 Hgb (13.7-17.5) gm/dl Hct (40.1-51.0) % MCV (79.0-92.2) fl MCH (25.7-32.2) pg MCHC (32.2-35.5) g/dl RDW Std Deviation (35.1-43.9) fL Plt Count (163-337) K/mm3 MPV (9.4-12.3) fl Neut % (Auto) (34.0-67.9) % Lymph % (Auto) (21.8-53.1) % Louisa % (Auto) (5.3-12.2) % Eos % (Auto) (0.8-7.0) Baso % (Auto) (0.1-1.2) % Neut # (Auto) (1.78-5.38) K/mm3 Lymph # (Auto) (1.32-3.57) K/mm3 Louisa # (Auto) (0.30-0.82) K/mm3 Eos # (Auto) (0.04-0.54) K/mm3 Baso # (Auto) (0.01-0.08) K/mm3 Manual Slide Review D-Dimer, Quantitative (0.19-0.50) mg/L Puncture Site ABG pH (7.35-7.45) ABG pCO2 (35.0-45.0) mmHg ABG pO2 (80.0-100.0) mmHg ABG HCO3 (22.0-26.0) meq/L ABG O2 Saturation (96.0-97.0) % ABG Base Excess (-2-2.0) Tyson Test A-a Gradient mmHg O2 Delivery Device Oxygen Flow Rate FiO2 (21.00-100.00) % Sodium (136-145) mEq/L Potassium (3.5-5.1) mEq/L Chloride (98-107) mEq/L Carbon Dioxide (21-32) mEq/L Anion Gap (5-15) BUN (7-18) mg/dL Creatinine (0.7-1.3) mg/dL Est Cr Clr Drug Dosing mL/min Estimated GFR (MDRD) (>60) mL/min BUN/Creatinine Ratio (14-18) Glucose (83-115) mg/dL Hemoglobin A1c 7.0 H ( - 5.6) % Calcium (8.5-10.1) mg/dL Total Bilirubin (0.2-1.0) mg/dL AST (15-37) U/L ALT (16-63) U/L Alkaline Phosphatase (46-116) U/L Troponin I (0.00-0.056) ng/mL C-Reactive Protein (<1.0) mg/dL NT-Pro-B Natriuret Pep 547 H (0-450) pg/mL Total Protein (6.4-8.2) g/dl Albumin (3.4-5.0) g/dl Globulin gm/dL Albumin/Globulin Ratio (1-2) Vitamin D 25-Hydroxy 25.9 L (30.0-100.0) ng/ml Urine Color (Yellow) Urine Appearance (Clear) Urine pH (5.0-8.0) Ur Specific [place] (1.005-1.030) Urine Protein (Negative) Urine Glucose (UA) (Negative) Urine Ketones (Negative) Urine Occult Blood (Negative) Urine Nitrite (Negative) Urine Bilirubin (Negative) Urine Urobilinogen (0.2-1.0) Ur Leukocyte Esterase (Negative) Urine RBC (0-5) /hpf Urine WBC (0-5) /hpf Ur Squamous Epith Cells (0-5) /hpf Amorphous Sediment (NOT SEEN) /hpf Urine Bacteria (FEW) /hpf Urine Mucus (FEW) /hpf 12/20/20 12/20/20 Range/Units 11:40 13:54 WBC (4.23-9.07) K/mm3 RBC (4.63-6.08) M/mm3 Hgb (13.7-17.5) gm/dl Hct (40.1-51.0) % MCV (79.0-92.2) fl MCH (25.7-32.2) pg MCHC (32.2-35.5) g/dl RDW Std Deviation (35.1-43.9) fL Plt Count (163-337) K/mm3 MPV (9.4-12.3) fl Neut % (Auto) (34.0-67.9) % Lymph % (Auto) (21.8-53.1) % Louisa % (Auto) (5.3-12.2) % Eos % (Auto) (0.8-7.0) Baso % (Auto) (0.1-1.2) % Neut # (Auto) (1.78-5.38) K/mm3 Lymph # (Auto) (1.32-3.57) K/mm3 Louisa # (Auto) (0.30-0.82) K/mm3 Eos # (Auto) (0.04-0.54) K/mm3 Baso # (Auto) (0.01-0.08) K/mm3 Manual Slide Review D-Dimer, Quantitative (0.19-0.50) mg/L Puncture Site Rt radial ABG pH 7.42 (7.35-7.45) ABG pCO2 42.7 (35.0-45.0) mmHg ABG pO2 63.0 L (80.0-100.0) mmHg ABG HCO3 27.2 H (22.0-26.0) meq/L ABG O2 Saturation 90.8 L (96.0-97.0) % ABG Base Excess 2.9 H (-2-2.0) Tyson Test Positive A-a Gradient 83 mmHg O2 Delivery Device Nasal cannula Oxygen Flow Rate 2.0 FiO2 28.00 (21.00-100.00) % Sodium (136-145) mEq/L Potassium (3.5-5.1) mEq/L Chloride (98-107) mEq/L Carbon Dioxide (21-32) mEq/L Anion Gap (5-15) BUN (7-18) mg/dL Creatinine (0.7-1.3) mg/dL Est Cr Clr Drug Dosing mL/min Estimated GFR (MDRD) (>60) mL/min BUN/Creatinine Ratio (14-18) Glucose (83-115) mg/dL Hemoglobin A1c ( - 5.6) % Calcium (8.5-10.1) mg/dL Total Bilirubin (0.2-1.0) mg/dL AST (15-37) U/L ALT (16-63) U/L Alkaline Phosphatase (46-116) U/L Troponin I (0.00-0.056) ng/mL C-Reactive Protein (<1.0) mg/dL NT-Pro-B Natriuret Pep (0-450) pg/mL Total Protein (6.4-8.2) g/dl Albumin (3.4-5.0) g/dl Globulin gm/dL Albumin/Globulin Ratio (1-2) Vitamin D 25-Hydroxy (30.0-100.0) ng/ml Urine Color Light yellow (Yellow) Urine Appearance Slt cloudy H (Clear) Urine pH 7.0 (5.0-8.0) Ur Specific [place] 1.015 (1.005-1.030) Urine Protein Negative (Negative) Urine Glucose (UA) Negative (Negative) Urine Ketones Negative (Negative) Urine Occult Blood Negative (Negative) Urine Nitrite Negative (Negative) Urine Bilirubin Negative (Negative) Urine Urobilinogen 1.0 (0.2-1.0) Ur Leukocyte Esterase Negative (Negative) Urine RBC 0-5 (0-5) /hpf Urine WBC Not seen (0-5) /hpf Ur Squamous Epith Cells 0-5 (0-5) /hpf Amorphous Sediment Few H (NOT SEEN) /hpf Urine Bacteria Few (FEW) /hpf Urine Mucus Not seen (FEW) /hpf Result Diagrams: 12/20/20 11:35 12/20/20 11:35 Sepsis Event Note - Focused Exam Vital Signs: Vital Signs Temp Temp Pulse Pulse Resp BP BP 12/20/20 15:00 12/20/20 14:47 36.4 C 62 20 92/73 12/20/20 13:45 60 20 116/77 12/20/20 13:07 65 18 105/75 12/20/20 12:30 66 18 106/74 12/20/20 12:15 65 16 110/68 12/20/20 12:00 71 20 108/68 12/20/20 11:19 36.5 C 84 12 135/78 Pulse Ox Pulse Ox 12/20/20 15:00 95 12/20/20 14:47 95 12/20/20 13:45 96 12/20/20 13:07 93 L 12/20/20 12:30 93 L 12/20/20 12:15 93 L 12/20/20 12:00 92 L 12/20/20 11:19 81 L Orders Last 24hrs: Active Orders 24 hr Category Date Time Status Patient Status [ADT] Routine ADT 12/20/20 13:53 Active Accu Check [Blood Glucose Check, Bedside] [RC] Care 12/20/20 15:14 Active QIDACANDBED Cardiac Monitoring [RC] CONTINUOUS Care 12/20/20 14:19 Active Height and Weight [RC] 06 Care 12/20/20 14:18 Active Intake and Output [RC] 04,16 Care 12/20/20 14:19 Active Nurse Communication: Isolation [RC] ASDIRECTED Care 12/20/20 14:21 Active Oxygen Therapy [RC] PRN Care 12/20/20 14:19 Active Positioning, Patient [RC] ASDIRECTED Care 12/20/20 14:20 Active Pulse Oximetry [RC] CONTINUOUS Care 12/20/20 14:19 Active RT Chest Physiotherapy [RC] ASDIRECTED Care 12/20/20 14:32 Active RT Incentive Spirometry [RC] ASDIRECTED Care 12/20/20 14:20 Active RT Post Treatment Assessment [RC] Click to Edit Care 12/20/20 14:35 Active RT Pre-Treatment Assessment [RC] Click to Edit Care 12/20/20 14:35 Active Up ad Jaci [RC] ASDIRECTED Care 12/20/20 14:18 Active VTE/DVT Education [RC] PER UNIT ROUTINE Care 12/20/20 14:19 Active Vital Signs [RC] Q4HR Care 12/20/20 14:19 Active Consult to Sewage Disposal Worker [CONS] Routine Cons 12/20/20 15:05 Active Consult to Spiritual Care [CONS] Routine Cons 12/20/20 14:18 Active Respiratory Care Assess and Treatment [CONS] Routine Cons 12/20/20 14:18 Active Consistent Carbohydrate Diet [DIET] Diet 12/20/20 Dinner Active CBC WITH AUTO DIFF [HEME] AM Lab 12/21/20 05:11 Ordered CBC WITH AUTO DIFF [HEME] AM Lab 12/22/20 05:11 Ordered CBC WITH AUTO DIFF [HEME] AM Lab 12/23/20 05:11 Ordered CBC WITH AUTO DIFF [HEME] AM Lab 12/24/20 05:11 Ordered CMP [COMPREHENSIVE METABOLIC PN,CMP] [CHEM] AM Lab 12/21/20 05:11 Ordered CMP [COMPREHENSIVE METABOLIC PN,CMP] [CHEM] AM Lab 12/22/20 05:11 Ordered CMP [COMPREHENSIVE METABOLIC PN,CMP] [CHEM] AM Lab 12/23/20 05:11 Ordered CMP [COMPREHENSIVE METABOLIC PN,CMP] [CHEM] AM Lab 12/24/20 05:11 Ordered DD [D-DIMER QUANTITATIVE] [COAG] Q48H Lab 12/22/20 14:32 Ordered DD [D-DIMER QUANTITATIVE] [COAG] Q48H Lab 12/24/20 14:32 Ordered DD [D-DIMER QUANTITATIVE] [COAG] Q48H Lab 12/26/20 14:32 Ordered MAGNESIUM [CHEM] AM Lab 12/21/20 05:11 Ordered MAGNESIUM [CHEM] AM Lab 12/22/20 05:11 Ordered MAGNESIUM [CHEM] AM Lab 12/23/20 05:11 Ordered MAGNESIUM [CHEM] AM Lab 12/24/20 05:11 Ordered PHOSPHORUS [CHEM] AM Lab 12/21/20 05:11 Ordered Acetaminophen [TylenoL] Med 12/20/20 14:18 Active 650 mg PO Q4H PRN Albuterol [Proventil HFA] Med 12/20/20 14:35 Active See Dose Instructions INH Q2H PRN Azithromycin [Zithromax] Med 12/20/20 14:30 Active 500 mg PO DAILY Cholecalciferol (Vitamin D3) [Vitamin D3] Med 12/20/20 14:45 Active 5,000 unit PO DAILY Citalopram [Celexa] Med 12/21/20 09:00 Active 40 mg PO DAILY Enoxaparin [Lovenox] Med 12/21/20 06:00 Active 50 mg SUBCUT Q12H Insulin Lispro [HumaLOG] Med 12/20/20 17:00 Active See Protocol SUBCUT QIDACANDBED Losartan [Cozaar] Med 12/21/20 09:00 Active 50 mg PO DAILY Ondansetron [Zofran] Med 12/20/20 14:18 Active 4 mg IV Q6H PRN Sodium Chloride 0.9% [Normal Saline] 100 ml Med 12/20/20 13:00 Active IV ASDIRECTED Sodium Chloride 0.9% [Saline Flush] Med 12/20/20 11:28 Active 10 ml FLUSH ASDIRECTED PRN Tiotropium Whitney [Spiriva Respimat] Med 12/21/20 09:00 Active 0 gm INH DAILY Zinc Sulfate [Zincate] Med 12/20/20 14:45 Active 220 mg PO DAILY busPIRone [Buspar] Med 12/20/20 15:00 Active 15 mg PO TID cefTRIAXone [Rocephin] 2 gm Med 12/20/20 16:00 Active Sodium Chloride 0.9% [Normal Saline] 100 ml IV Q24H dexAMETHasone Med 12/21/20 09:00 Active 6 mg PO DAILY guaiFENesin [Mucinex] Med 12/20/20 21:00 Active 600 mg PO BID traZODone Med 12/20/20 21:00 Active 100 mg PO BEDTIME Isolation [COMM] Stat Oth 12/20/20 14:20 Ordered Peripheral IV Insertion Adult [OM.PC] Stat Oth 12/20/20 11:28 Ordered Code Status [Resuscitation Status] Routine Resus Stat 12/20/20 14:40 Ordered EKG 12 Lead [EK] Stat Ther 12/20/20 11:28 Ordered Medication Orders Acetaminophen (Tylenol) 650 mg PO Q4H PRN PRN Reason: Pain (Mild 1-3)/fever Albuterol (Proventil Hfa) 0 gm INH Q2H PRN PRN Reason: SOB/Wheezing Azithromycin (Zithromax) 500 mg PO DAILY [facility] Stop: 12/22/20 09:01 Buspirone HCl (Buspar) 15 mg PO TID [facility] Cholecalciferol (Vitamin D3) 5,000 unit PO DAILY [facility] Citalopram Hydrobromide (Celexa) 40 mg PO DAILY [facility] Dexamethasone (Dexamethasone) 6 mg PO DAILY [facility] Stop: 12/29/20 09:01 Enoxaparin Sodium (Lovenox) 50 mg SUBCUT Q12H [facility] Guaifenesin (Mucinex) 600 mg PO BID [facility] Sodium Chloride (Normal Saline) 100 mls @ 75 mls/hr IV ASDIRECTED [facility] Last Admin: 12/20/20 13:00 Dose: 75 mls/hr Documented by: VIVIAN Ceftriaxone Sodium 2 gm/ (Sodium Chloride) 100 mls @ 200 mls/hr IV Q24H [facility] Stop: 12/24/20 16:29 Insulin Human Lispro (Humalog) 0 unit SUBCUT QIDACANDBED [facility]; Protocol Losartan Potassium (Cozaar) 50 mg PO DAILY [facility] Ondansetron HCl (Zofran) 4 mg IV Q6H PRN PRN Reason: Nausea/Vomiting Sodium Chloride (Saline Flush) 10 ml FLUSH ASDIRECTED PRN PRN Reason: Keep Vein Open Last Admin: 12/20/20 11:42 Dose: 10 ml Documented by: URBAN Tiotropium Whitney (Spiriva Respimat) 0 gm INH DAILY [facility] Trazodone HCl (Trazodone) 100 mg PO BEDTIME [facility] Zinc Sulfate (Zincate) 220 mg PO DAILY [facility]
[2020-12-20] MEDS ORDERED: Enoxaparin 60 MG/0.6 ML Syringe SUBCUT ONE (16:00)
[2020-12-20] MEDS: cefTRIAXone 2 GM in Sodium Chloride 0.9% 100 ML IV SCH (16:00)
[2020-12-20] MEDS: Cholecalciferol (Vitamin D3) 5,000 UNIT Cap PO SCH (16:02)
[2020-12-20] MEDS: Zinc Sulfate 220 MG Cap PO SCH (16:02)
[2020-12-20] MEDS: busPIRone 15 MG Tab PO SCH ×2 (16:03→22:05)
[2020-12-20] MEDS: Azithromycin 250 MG Tab PO SCH (16:03)
[2020-12-20] MEDS ORDERED: Non-Formulary Medication 1 Each (Trazodone 100 MG) PO SCH (21:00)
[2020-12-20] MEDS: guaiFENesin 600 MG Tab.ER PO SCH (22:05)
[2020-12-20] MEDS: traZODone 50 MG Tab PO SCH (22:06)
[2020-12-21] MEDS: Enoxaparin 60 MG/0.6 ML Syringe SUBCUT SCH ×2 (05:02→17:57)
--- NOTE | 2020-12-21 08:27 | PCM.PN ---
<Des Rogel - Last Filed: 12/21/20 09:48> - General Info Date of Service: 12/21/20 Admission Dx/Problem (Free Text): Admission Diagnosis/Problem Admission Diagnosis/Problem Pneumonia Functional Status: Reports: Pain Controlled, Tolerating Diet, Ambulating, Urinating, Incentive Spirometry, Other (acapella ). Denies: New Symptoms - Review of Systems General: Reports: Weakness (improved ). Denies: Fever, Fatigue, Malaise, Chills HEENT: Reports: No Symptoms. Denies: Headaches, Sore Throat Pulmonary: Reports: Shortness of Breath, Cough, Sputum, Wheezing Cardiovascular: Reports: Dyspnea on Exertion. Denies: Chest Pain, Palpitations, Edema Gastrointestinal: Reports: No Symptoms. Denies: Abdominal Pain, Constipation, Decreased Appetite (greatly improved ), Diarrhea, Nausea, Vomiting Genitourinary: Reports: No Symptoms. Denies: Pain Musculoskeletal: Reports: Other (Generalized myalgias ) Skin: Reports: No Symptoms Neurological: Denies: Confusion, Pre-Existing Deficit, Difficulty Walking, Gait Disturbance Psychiatric: Reports: No Symptoms - Patient Data Vitals - Most Recent: Last Vital Signs Temp 95.4 F L 12/21/20 01:33 Pulse 60 12/21/20 01:33 Resp 14 12/21/20 00:43 BP 123/71 12/21/20 00:43 Pulse Ox 95 12/21/20 06:15 Weight - Most Recent: 100.38 kg I&O - Last 24 Hours: Intake & Output 12/20/20 12/21/20 12/21/20 22:59 06:59 14:59 Intake Total 705 1100 Output Total 825 Balance 705 275 Lab Results Last 24 Hours: Laboratory Results - last 24 hr 12/20/20 12/20/20 12/20/20 Range/Units 11:35 11:35 11:35 WBC 6.01 (4.23-9.07) K/mm3 RBC 3.77 L (4.63-6.08) M/mm3 Hgb 10.8 L D (13.7-17.5) gm/dl Hct 34.8 L (40.1-51.0) % MCV 92.3 H (79.0-92.2) fl MCH 28.6 (25.7-32.2) pg MCHC 31.0 L (32.2-35.5) g/dl RDW Std Deviation 43.2 (35.1-43.9) fL Plt Count 218 (163-337) K/mm3 MPV 10.1 (9.4-12.3) fl Neut % (Auto) 81.8 H (34.0-67.9) % Lymph % (Auto) 4.5 L (21.8-53.1) % [place] % (Auto) 13.3 H (5.3-12.2) % Eos % (Auto) 0 L (0.8-7.0) Baso % (Auto) 0.2 (0.1-1.2) % Neut # (Auto) 4.92 (1.78-5.38) K/mm3 Lymph # (Auto) 0.27 L (1.32-3.57) K/mm3 [place] # (Auto) 0.80 (0.30-0.82) K/mm3 Eos # (Auto) 0.00 L (0.04-0.54) K/mm3 Baso # (Auto) 0.01 (0.01-0.08) K/mm3 Manual Slide Review Abnormal smear D-Dimer, Quantitative 4.31 H (0.19-0.50) mg/L Puncture Site ABG pH (7.35-7.45) ABG pCO2 (35.0-45.0) mmHg ABG pO2 (80.0-100.0) mmHg ABG HCO3 (22.0-26.0) meq/L ABG O2 Saturation (96.0-97.0) % ABG Base Excess (-2-2.0) Tyson Test A-a Gradient mmHg O2 Delivery Device Oxygen Flow Rate FiO2 (21.00-100.00) % Sodium 139 (136-145) mEq/L Potassium 4.8 (3.5-5.1) mEq/L Chloride 102 (98-107) mEq/L Carbon Dioxide 28 (21-32) mEq/L Anion Gap 13.8 (5-15) BUN 19 H (7-18) mg/dL Creatinine 1.6 H (0.7-1.3) mg/dL Est Cr Clr Drug Dosing 39.28 mL/min Estimated GFR (MDRD) 42 (>60) mL/min BUN/Creatinine Ratio 11.9 L (14-18) Glucose 134 H (83-115) mg/dL POC Glucose (83-110) mg/dL Hemoglobin A1c ( - 5.6) % Calcium 8.7 (8.5-10.1) mg/dL Phosphorus (2.6-4.7) mg/dL Magnesium (1.8-2.4) mg/dl Total Bilirubin 0.5 (0.2-1.0) mg/dL AST 10 L (15-37) U/L ALT 25 (16-63) U/L Alkaline Phosphatase 58 (46-116) U/L Troponin I < 0.017 (0.00-0.056) ng/mL C-Reactive Protein 12.2 H* (<1.0) mg/dL NT-Pro-B Natriuret Pep (0-450) pg/mL Total Protein 6.8 (6.4-8.2) g/dl Albumin 2.7 L (3.4-5.0) g/dl Globulin 4.1 gm/dL Albumin/Globulin Ratio 0.7 L (1-2) Vitamin D 25-Hydroxy (30.0-100.0) ng/ml Urine Color (Yellow) Urine Appearance (Clear) Urine pH (5.0-8.0) Ur Specific [place] (1.005-1.030) Urine Protein (Negative) Urine Glucose (UA) (Negative) Urine Ketones (Negative) Urine Occult Blood (Negative) Urine Nitrite (Negative) Urine Bilirubin (Negative) Urine Urobilinogen (0.2-1.0) Ur Leukocyte Esterase (Negative) Urine RBC (0-5) /hpf Urine WBC (0-5) /hpf Ur Squamous Epith Cells (0-5) /hpf Amorphous Sediment (NOT SEEN) /hpf Urine Bacteria (FEW) /hpf Urine Mucus (FEW) /hpf 12/20/20 12/20/20 12/20/20 Range/Units 11:35 11:35 11:35 WBC (4.23-9.07) K/mm3 RBC (4.63-6.08) M/mm3 Hgb (13.7-17.5) gm/dl Hct (40.1-51.0) % MCV (79.0-92.2) fl MCH (25.7-32.2) pg MCHC (32.2-35.5) g/dl RDW Std Deviation (35.1-43.9) fL Plt Count (163-337) K/mm3 MPV (9.4-12.3) fl Neut % (Auto) (34.0-67.9) % Lymph % (Auto) (21.8-53.1) % [place] % (Auto) (5.3-12.2) % Eos % (Auto) (0.8-7.0) Baso % (Auto) (0.1-1.2) % Neut # (Auto) (1.78-5.38) K/mm3 Lymph # (Auto) (1.32-3.57) K/mm3 [place] # (Auto) (0.30-0.82) K/mm3 Eos # (Auto) (0.04-0.54) K/mm3 Baso # (Auto) (0.01-0.08) K/mm3 Manual Slide Review D-Dimer, Quantitative (0.19-0.50) mg/L Puncture Site ABG pH (7.35-7.45) ABG pCO2 (35.0-45.0) mmHg ABG pO2 (80.0-100.0) mmHg ABG HCO3 (22.0-26.0) meq/L ABG O2 Saturation (96.0-97.0) % ABG Base Excess (-2-2.0) Tyson Test A-a Gradient mmHg O2 Delivery Device Oxygen Flow Rate FiO2 (21.00-100.00) % Sodium (136-145) mEq/L Potassium (3.5-5.1) mEq/L Chloride (98-107) mEq/L Carbon Dioxide (21-32) mEq/L Anion Gap (5-15) BUN (7-18) mg/dL Creatinine (0.7-1.3) mg/dL Est Cr Clr Drug Dosing mL/min Estimated GFR (MDRD) (>60) mL/min BUN/Creatinine Ratio (14-18) Glucose (83-115) mg/dL POC Glucose (83-110) mg/dL Hemoglobin A1c 7.0 H ( - 5.6) % Calcium (8.5-10.1) mg/dL Phosphorus (2.6-4.7) mg/dL Magnesium (1.8-2.4) mg/dl Total Bilirubin (0.2-1.0) mg/dL AST (15-37) U/L ALT (16-63) U/L Alkaline Phosphatase (46-116) U/L Troponin I (0.00-0.056) ng/mL C-Reactive Protein (<1.0) mg/dL NT-Pro-B Natriuret Pep 547 H (0-450) pg/mL Total Protein (6.4-8.2) g/dl Albumin (3.4-5.0) g/dl Globulin gm/dL Albumin/Globulin Ratio (1-2) Vitamin D 25-Hydroxy 25.9 L (30.0-100.0) ng/ml Urine Color (Yellow) Urine Appearance (Clear) Urine pH (5.0-8.0) Ur Specific [place] (1.005-1.030) Urine Protein (Negative) Urine Glucose (UA) (Negative) Urine Ketones (Negative) Urine Occult Blood (Negative) Urine Nitrite (Negative) Urine Bilirubin (Negative) Urine Urobilinogen (0.2-1.0) Ur Leukocyte Esterase (Negative) Urine RBC (0-5) /hpf Urine WBC (0-5) /hpf Ur Squamous Epith Cells (0-5) /hpf Amorphous Sediment (NOT SEEN) /hpf Urine Bacteria (FEW) /hpf Urine Mucus (FEW) /hpf 12/20/20 12/20/20 12/20/20 Range/Units 11:40 13:54 16:11 WBC (4.23-9.07) K/mm3 RBC (4.63-6.08) M/mm3 Hgb (13.7-17.5) gm/dl Hct (40.1-51.0) % MCV (79.0-92.2) fl MCH (25.7-32.2) pg MCHC (32.2-35.5) g/dl RDW Std Deviation (35.1-43.9) fL Plt Count (163-337) K/mm3 MPV (9.4-12.3) fl Neut % (Auto) (34.0-67.9) % Lymph % (Auto) (21.8-53.1) % [place] % (Auto) (5.3-12.2) % Eos % (Auto) (0.8-7.0) Baso % (Auto) (0.1-1.2) % Neut # (Auto) (1.78-5.38) K/mm3 Lymph # (Auto) (1.32-3.57) K/mm3 [place] # (Auto) (0.30-0.82) K/mm3 Eos # (Auto) (0.04-0.54) K/mm3 Baso # (Auto) (0.01-0.08) K/mm3 Manual Slide Review D-Dimer, Quantitative (0.19-0.50) mg/L Puncture Site Rt radial ABG pH 7.42 (7.35-7.45) ABG pCO2 42.7 (35.0-45.0) mmHg ABG pO2 63.0 L (80.0-100.0) mmHg ABG HCO3 27.2 H (22.0-26.0) meq/L ABG O2 Saturation 90.8 L (96.0-97.0) % ABG Base Excess 2.9 H (-2-2.0) Tyson Test Positive A-a Gradient 83 mmHg O2 Delivery Device Nasal cannula Oxygen Flow Rate 2.0 FiO2 28.00 (21.00-100.00) % Sodium (136-145) mEq/L Potassium (3.5-5.1) mEq/L Chloride (98-107) mEq/L Carbon Dioxide (21-32) mEq/L Anion Gap (5-15) BUN (7-18) mg/dL Creatinine (0.7-1.3) mg/dL Est Cr Clr Drug Dosing mL/min Estimated GFR (MDRD) (>60) mL/min BUN/Creatinine Ratio (14-18) Glucose (83-115) mg/dL POC Glucose 130 H (83-110) mg/dL Hemoglobin A1c ( - 5.6) % Calcium (8.5-10.1) mg/dL Phosphorus (2.6-4.7) mg/dL Magnesium (1.8-2.4) mg/dl Total Bilirubin (0.2-1.0) mg/dL AST (15-37) U/L ALT (16-63) U/L Alkaline Phosphatase (46-116) U/L Troponin I (0.00-0.056) ng/mL C-Reactive Protein (<1.0) mg/dL NT-Pro-B Natriuret Pep (0-450) pg/mL Total Protein (6.4-8.2) g/dl Albumin (3.4-5.0) g/dl Globulin gm/dL Albumin/Globulin Ratio (1-2) Vitamin D 25-Hydroxy (30.0-100.0) ng/ml Urine Color Light yellow (Yellow) Urine Appearance Slt cloudy H (Clear) Urine pH 7.0 (5.0-8.0) Ur Specific [place] 1.015 (1.005-1.030) Urine Protein Negative (Negative) Urine Glucose (UA) Negative (Negative) Urine Ketones Negative (Negative) Urine Occult Blood Negative (Negative) Urine Nitrite Negative (Negative) Urine Bilirubin Negative (Negative) Urine Urobilinogen 1.0 (0.2-1.0) Ur Leukocyte Esterase Negative (Negative) Urine RBC 0-5 (0-5) /hpf Urine WBC Not seen (0-5) /hpf Ur Squamous Epith Cells 0-5 (0-5) /hpf Amorphous Sediment Few H (NOT SEEN) /hpf Urine Bacteria Few (FEW) /hpf Urine Mucus Not seen (FEW) /hpf 12/20/20 12/21/20 12/21/20 Range/Units 20:31 05:19 05:19 WBC 1.92 L* (4.23-9.07) K/mm3 RBC 4.15 L (4.63-6.08) M/mm3 Hgb 11.9 L (13.7-17.5) gm/dl Hct 38.4 L (40.1-51.0) % MCV 92.5 H (79.0-92.2) fl MCH 28.7 (25.7-32.2) pg MCHC 31.0 L (32.2-35.5) g/dl RDW Std Deviation 42.9 (35.1-43.9) fL Plt Count 202 (163-337) K/mm3 MPV 10.5 (9.4-12.3) fl Neut % (Auto) 78.7 H (34.0-67.9) % Lymph % (Auto) 13.0 L (21.8-53.1) % [place] % (Auto) 8.3 (5.3-12.2) % Eos % (Auto) 0 L (0.8-7.0) Baso % (Auto) 0.0 L (0.1-1.2) % Neut # (Auto) 1.51 L (1.78-5.38) K/mm3 Lymph # (Auto) 0.25 L (1.32-3.57) K/mm3 [place] # (Auto) 0.16 L (0.30-0.82) K/mm3 Eos # (Auto) 0.00 L (0.04-0.54) K/mm3 Baso # (Auto) 0.00 L (0.01-0.08) K/mm3 Manual Slide Review Abnormal smear D-Dimer, Quantitative (0.19-0.50) mg/L Puncture Site ABG pH (7.35-7.45) ABG pCO2 (35.0-45.0) mmHg ABG pO2 (80.0-100.0) mmHg ABG HCO3 (22.0-26.0) meq/L ABG O2 Saturation (96.0-97.0) % ABG Base Excess (-2-2.0) Tyson Test A-a Gradient mmHg O2 Delivery Device Oxygen Flow Rate FiO2 (21.00-100.00) % Sodium 143 (136-145) mEq/L Potassium 4.8 (3.5-5.1) mEq/L Chloride 106 (98-107) mEq/L Carbon Dioxide 28 (21-32) mEq/L Anion Gap 13.8 (5-15) BUN 21 H (7-18) mg/dL Creatinine 1.4 H (0.7-1.3) mg/dL Est Cr Clr Drug Dosing 44.89 mL/min Estimated GFR (MDRD) 49 (>60) mL/min BUN/Creatinine Ratio 15.0 (14-18) Glucose 145 H (83-115) mg/dL POC Glucose 230 H (83-110) mg/dL Hemoglobin A1c ( - 5.6) % Calcium 9.0 (8.5-10.1) mg/dL Phosphorus 3.9 (2.6-4.7) mg/dL Magnesium 2.6 H (1.8-2.4) mg/dl Total Bilirubin 0.3 (0.2-1.0) mg/dL AST 16 (15-37) U/L ALT 26 (16-63) U/L Alkaline Phosphatase 64 (46-116) U/L Troponin I (0.00-0.056) ng/mL C-Reactive Protein (<1.0) mg/dL NT-Pro-B Natriuret Pep (0-450) pg/mL Total Protein 7.4 (6.4-8.2) g/dl Albumin 2.8 L (3.4-5.0) g/dl Globulin 4.6 gm/dL Albumin/Globulin Ratio 0.6 L (1-2) Vitamin D 25-Hydroxy (30.0-100.0) ng/ml Urine Color (Yellow) Urine Appearance (Clear) Urine pH (5.0-8.0) Ur Specific [place] (1.005-1.030) Urine Protein (Negative) Urine Glucose (UA) (Negative) Urine Ketones (Negative) Urine Occult Blood (Negative) Urine Nitrite (Negative) Urine Bilirubin (Negative) Urine Urobilinogen (0.2-1.0) Ur Leukocyte Esterase (Negative) Urine RBC (0-5) /hpf Urine WBC (0-5) /hpf Ur Squamous Epith Cells (0-5) /hpf Amorphous Sediment (NOT SEEN) /hpf Urine Bacteria (FEW) /hpf Urine Mucus (FEW) /hpf 12/21/20 Range/Units 06:32 WBC (4.23-9.07) K/mm3 RBC (4.63-6.08) M/mm3 Hgb (13.7-17.5) gm/dl Hct (40.1-51.0) % MCV (79.0-92.2) fl MCH (25.7-32.2) pg MCHC (32.2-35.5) g/dl RDW Std Deviation (35.1-43.9) fL Plt Count (163-337) K/mm3 MPV (9.4-12.3) fl Neut % (Auto) (34.0-67.9) % Lymph % (Auto) (21.8-53.1) % [place] % (Auto) (5.3-12.2) % Eos % (Auto) (0.8-7.0) Baso % (Auto) (0.1-1.2) % Neut # (Auto) (1.78-5.38) K/mm3 Lymph # (Auto) (1.32-3.57) K/mm3 [place] # (Auto) (0.30-0.82) K/mm3 Eos # (Auto) (0.04-0.54) K/mm3 Baso # (Auto) (0.01-0.08) K/mm3 Manual Slide Review D-Dimer, Quantitative (0.19-0.50) mg/L Puncture Site ABG pH (7.35-7.45) ABG pCO2 (35.0-45.0) mmHg ABG pO2 (80.0-100.0) mmHg ABG HCO3 (22.0-26.0) meq/L ABG O2 Saturation (96.0-97.0) % ABG Base Excess (-2-2.0) Tyson Test A-a Gradient mmHg O2 Delivery Device Oxygen Flow Rate FiO2 (21.00-100.00) % Sodium (136-145) mEq/L Potassium (3.5-5.1) mEq/L Chloride (98-107) mEq/L Carbon Dioxide (21-32) mEq/L Anion Gap (5-15) BUN (7-18) mg/dL Creatinine (0.7-1.3) mg/dL Est Cr Clr Drug Dosing mL/min Estimated GFR (MDRD) (>60) mL/min BUN/Creatinine Ratio (14-18) Glucose (83-115) mg/dL POC Glucose 156 H (83-110) mg/dL Hemoglobin A1c ( - 5.6) % Calcium (8.5-10.1) mg/dL Phosphorus (2.6-4.7) mg/dL Magnesium (1.8-2.4) mg/dl Total Bilirubin (0.2-1.0) mg/dL AST (15-37) U/L ALT (16-63) U/L Alkaline Phosphatase (46-116) U/L Troponin I (0.00-0.056) ng/mL C-Reactive Protein (<1.0) mg/dL NT-Pro-B Natriuret Pep (0-450) pg/mL Total Protein (6.4-8.2) g/dl Albumin (3.4-5.0) g/dl Globulin gm/dL Albumin/Globulin Ratio (1-2) Vitamin D 25-Hydroxy (30.0-100.0) ng/ml Urine Color (Yellow) Urine Appearance (Clear) Urine pH (5.0-8.0) Ur Specific [place] (1.005-1.030) Urine Protein (Negative) Urine Glucose (UA) (Negative) Urine Ketones (Negative) Urine Occult Blood (Negative) Urine Nitrite (Negative) Urine Bilirubin (Negative) Urine Urobilinogen (0.2-1.0) Ur Leukocyte Esterase (Negative) Urine RBC (0-5) /hpf Urine WBC (0-5) /hpf Ur Squamous Epith Cells (0-5) /hpf Amorphous Sediment (NOT SEEN) /hpf Urine Bacteria (FEW) /hpf Urine Mucus (FEW) /hpf Med Orders - Current: Current Medications Acetaminophen (Tylenol) 650 mg PO Q4H PRN PRN Reason: Pain (Mild 1-3)/fever Albuterol (Proventil Hfa) 0 gm INH Q2H PRN PRN Reason: SOB/Wheezing Azithromycin (Zithromax) 500 mg PO DAILY [facility] Stop: 12/22/20 09:01 Last Admin: 12/20/20 16:03 Dose: 500 mg Documented by: Buspirone HCl (Buspar) 15 mg PO TID [facility] Last Admin: 12/20/20 22:05 Dose: 15 mg Documented by: Cholecalciferol (Vitamin D3) 5,000 unit PO DAILY [facility] Last Admin: 12/20/20 16:02 Dose: 5,000 unit Documented by: Citalopram Hydrobromide (Celexa) 40 mg PO DAILY [facility] Dexamethasone (Dexamethasone) 6 mg PO DAILY [facility] Stop: 12/29/20 09:01 Enoxaparin Sodium (Lovenox) 50 mg SUBCUT Q12H [facility] Last Admin: 12/21/20 05:02 Dose: 50 mg Documented by: Guaifenesin (Mucinex) 600 mg PO BID [facility] Last Admin: 12/20/20 22:05 Dose: 600 mg Documented by: Ceftriaxone Sodium 2 gm/ (Sodium Chloride) 100 mls @ 200 mls/hr IV Q24H [facility] Stop: 12/24/20 16:29 Last Admin: 12/20/20 16:00 Dose: 200 mls/hr Documented by: Insulin Human Lispro (Humalog) 0 unit SUBCUT QIDACANDBED [facility]; Protocol Last Admin: 12/20/20 22:06 Dose: 2 units Documented by: Losartan Potassium (Cozaar) 50 mg PO DAILY [facility] Ondansetron HCl (Zofran) 4 mg IV Q6H PRN PRN Reason: Nausea/Vomiting Sodium Chloride (Saline Flush) 10 ml FLUSH ASDIRECTED PRN PRN Reason: Keep Vein Open Last Admin: 12/20/20 11:42 Dose: 10 ml Documented by: Tiotropium [place] (Spiriva Respimat) 0 gm INH DAILY [facility] Trazodone HCl (Trazodone) 100 mg PO BEDTIME [facility] Last Admin: 12/20/20 22:06 Dose: 100 mg Documented by: Zinc Sulfate (Zincate) 220 mg PO DAILY [facility] Last Admin: 12/20/20 16:02 Dose: 220 mg Documented by: Discontinued Medications Dexamethasone (Dexamethasone) 6 mg PO ONETIME ONE Stop: 12/20/20 13:28 Last Admin: 12/20/20 13:36 Dose: 6 mg Documented by: Enoxaparin Sodium (Lovenox) 40 mg SUBCUT DAILY [facility] Enoxaparin Sodium (Lovenox) 50 mg SUBCUT ONETIME ONE Stop: 12/20/20 16:01 Last Admin: 12/20/20 16:01 Dose: 50 mg Documented by: Sodium Chloride (Normal Saline) 1,000 mls @ 150 mls/hr IV NOW STA Stop: 12/20/20 19:02 Last Infusion: 12/20/20 13:35 Dose: 75 mls/hr Documented by: Sodium Chloride (Normal Saline) 100 mls @ 75 mls/hr IV ASDIRECTED [facility] Last Admin: 12/20/20 13:00 Dose: 75 mls/hr Documented by: Ceftriaxone Sodium 2 gm/ (Sodium Chloride) 100 mls @ 200 mls/hr IV Q24H [facility] Stop: 12/24/20 14:59 Last Admin: 12/20/20 17:46 Dose: Not Given Documented by: Iopamidol (Isovue-370 (76%)) 100 ml IVPUSH ONETIME ONE Stop: 12/20/20 12:59 Last Admin: 12/20/20 12:59 Dose: 100 ml Documented by: Non-Formulary Medication (Escitalopram) 20 mg PO DAILY [facility] Non-Formulary Medication (Tiotropium) 18 mcg INH DAILY [facility] Non-Formulary Medication (Trazodone) 100 mg PO BEDTIME [facility] Sodium Chloride (Saline Flush) 10 ml FLUSH ONETIME PRN PRN Reason: IV FLUSH Last Admin: 12/20/20 12:59 Dose: 10 ml Documented by: - Exam Quality Assessment: Supplemental Oxygen (2L ), DVT Prophylaxis. No: Urine Catheter General: Alert, Oriented, Cooperative, No Acute Distress HEENT: Pupils Equal, Pupils Reactive, Mucous Membr. Moist/[place] Neck: Supple, Trachea Midline Lungs: Normal Respiratory Effort, Decreased Breath Sounds, Rhonchi Cardiovascular: Regular Rate, Regular Rhythm GI/Abdominal Exam: Normal Bowel Sounds, Soft, Non-Tender, No Distention (Male) Exam: Deferred Back Exam: Normal Inspection, Full Range of Motion Extremities: Normal Inspection, Normal Range of Motion, Non-Tender, No Pedal Edema, Normal Capillary Refill Peripheral Pulses: 2+: Radial (L), Radial (R), Dorsalis Pedis (L), Dorsalis Pedis (R) Skin: Warm, Dry, Intact Neurological: No New Focal Deficit Psy/Mental Status: Alert, Normal Affect, Normal Mood Sepsis Event Note - Evaluation Sepsis Screening Result: No Definite Risk - Focused Exam Vital Signs: Vital Signs Temp Pulse Resp BP Pulse Ox Pulse Ox 12/21/20 06:15 95 12/21/20 01:33 95.4 F L 60 95 12/21/20 00:43 95.5 F L 40 L 14 123/71 97 12/20/20 23:41 49 L 96 12/20/20 22:00 97.3 F 56 L 98 - Problem List & Annotations (1) Elevated d-dimer SNOMED Code(s): 382124210 Code(s): R79.89 - OTHER SPECIFIED ABNORMAL FINDINGS OF BLOOD CHEMISTRY Status: Acute Priority: High Current Visit: Yes (2) Hypoxia SNOMED Code(s): 369461073 Code(s): R09.02 - HYPOXEMIA Status: Acute Priority: High Current Visit: Yes (3) CKD (chronic kidney disease) stage 3, GFR 30-59 ml/min SNOMED Code(s): 739814817 Code(s): N18.30 - CHRONIC KIDNEY DISEASE, STAGE 3 UNSPECIFIED Status: Chronic Priority: High Current Visit: Yes Qualifiers: Chronic kidney disease stage 3 subtype: stage 3b (GFR 30-44) Qualified Code(s): N18.32 - Chronic kidney disease, stage 3b (4) Post-acute COVID-19 syndrome SNOMED Code(s): 326100726, 498664390011408623 Code(s): B94.8 - SEQUELAE OF OTH INFECTIOUS AND PARASITIC DISEASES Status: Acute Priority: High Current Visit: Yes (5) History of COVID-19 SNOMED Code(s): 137304642256038631, 764137007887988128 Code(s): Z86.16 - PERSONAL HISTORY OF COVID-19 Status: Acute Priority: High Current Visit: Yes (6) HLD (hyperlipidemia) SNOMED Code(s): 63681578 Code(s): E78.5 - HYPERLIPIDEMIA, UNSPECIFIED Status: Acute Current Visit: Yes (7) HTN (hypertension) SNOMED Code(s): 76045403 Code(s): I10 - ESSENTIAL (PRIMARY) HYPERTENSION Status: Acute Current Visit: Yes (8) Chronic lumbar pain SNOMED Code(s): 210368183 Code(s): M54.5 - LOW BACK PAIN; G89.29 - OTHER CHRONIC PAIN Status: Acute Current Visit: Yes (9) Prediabetes SNOMED Code(s): 732836537 Code(s): R73.03 - PREDIABETES Status: Acute Current Visit: Yes (10) History of heart artery stent SNOMED Code(s): 268242622, 342819432 Code(s): Z95.5 - PRESENCE OF CORONARY ANGIOPLASTY IMPLANT AND GRAFT Status: Acute Current Visit: Yes (11) Hypoalbuminemia SNOMED Code(s): 158197834 Code(s): E88.09 - OTH DISORDERS OF PLASMA-PROTEIN METABOLISM, NEC Status: Acute Current Visit: Yes (12) Former smoker SNOMED Code(s): 7476069 Code(s): Z87.891 - PERSONAL HISTORY OF NICOTINE DEPENDENCE Status: Acute Current Visit: Yes (13) History of lung cancer SNOMED Code(s): 421112228, 825379083 Code(s): Z85.118 - PERSONAL HISTORY OF MALIGNANT NEOPLASM OF BRONCHUS AND LUNG Status: Acute Priority: High Current Visit: Yes (14) Neutropenia SNOMED Code(s): 276668908 Code(s): D70.9 - NEUTROPENIA, UNSPECIFIED Status: Acute Priority: Medium Current Visit: Yes Qualifiers: Neutropenia type: due to infection Qualified Code(s): D70.3 - Neutropenia due to infection - Problem List Review Problem List Initiated/Reviewed/Updated: Yes - My Orders Last 24 Hours: My Active Orders 12/20/20 14:18 Height and Weight [RC] 06 Up ad Jaci [RC] BID Consult to Spiritual Care [CONS] Routine Respiratory Care Assess and Treatment [CONS] Routine Acetaminophen [TylenoL] 650 mg PO Q4H PRN Ondansetron [Zofran] 4 mg IV Q6H PRN 12/20/20 14:19 Cardiac Monitoring [RC] CONTINUOUS Intake and Output [RC] 04,16 Oxygen Therapy [RC] PRN Pulse Oximetry [RC] CONTINUOUS VTE/DVT Education [RC] DAILY Vital Signs [RC] Q4HR 12/20/20 14:20 Positioning, Patient [RC] ASDIRECTED RT Incentive Spirometry [RC] ASDIRECTED Isolation [COMM] Stat 12/20/20 14:21 Nurse Communication: Isolation [RC] ASDIRECTED 12/20/20 14:30 Azithromycin [Zithromax] 500 mg PO DAILY 12/20/20 14:32 RT Chest Physiotherapy [RC] ASDIRECTED 12/20/20 14:35 RT Post Treatment Assessment [RC] Click to Edit RT Pre-Treatment Assessment [RC] Click to Edit Albuterol [Proventil HFA] See Dose Instructions INH Q2H PRN 12/20/20 14:40 Code Status [Resuscitation Status] Routine 12/20/20 14:45 Cholecalciferol (Vitamin D3) [Vitamin D3] 5,000 unit PO DAILY Zinc Sulfate [Zincate] 220 mg PO DAILY 12/20/20 15:00 busPIRone [Buspar] 15 mg PO TID 12/20/20 15:05 Consult to Labor Operator [CONS] Routine 12/20/20 15:14 Accu Check [Blood Glucose Check, Bedside] [RC] QIDACANDBED 12/20/20 16:00 cefTRIAXone [Rocephin] 2 gm Sodium Chloride 0.9% [Normal Saline] 100 ml IV Q24H 12/20/20 Dinner Consistent Carbohydrate Diet [DIET] Insulin Lispro [HumaLOG] See Protocol SUBCUT QIDACANDBED 12/20/20 21:00 guaiFENesin [Mucinex] 600 mg PO BID traZODone 100 mg PO BEDTIME 12/21/20 06:00 Enoxaparin [Lovenox] 50 mg SUBCUT Q12H 12/21/20 09:00 Citalopram [Celexa] 40 mg PO DAILY Losartan [Cozaar] 50 mg PO DAILY Tiotropium [place] [Spiriva Respimat] 0 gm INH DAILY dexAMETHasone 6 mg PO DAILY 12/22/20 05:11 CBC WITH AUTO DIFF [HEME] AM CMP [COMPREHENSIVE METABOLIC PN,CMP] [CHEM] AM MAGNESIUM [CHEM] AM 12/22/20 14:32 DD [D-DIMER QUANTITATIVE] [COAG] Q48H 12/23/20 05:11 CBC WITH AUTO DIFF [HEME] AM CMP [COMPREHENSIVE METABOLIC PN,CMP] [CHEM] AM MAGNESIUM [CHEM] AM 12/24/20 05:11 CBC WITH AUTO DIFF [HEME] AM CMP [COMPREHENSIVE METABOLIC PN,CMP] [CHEM] AM MAGNESIUM [CHEM] AM 12/24/20 14:32 DD [D-DIMER QUANTITATIVE] [COAG] Q48H 12/26/20 14:32 DD [D-DIMER QUANTITATIVE] [COAG] Q48H - Assessment Assessment:: Assessment - Day of admission 12/20/20 * 75 yo male who presents to our ED with complaints of COVID-19 symptoms for over 3 weeks * Started feeling ill on 12/01/20 and COVID-19 positive on 12/06/20 * Reports SOB, cough, sputum, excessive sputum, fatigue, fever, chills, nausea, decreased appetite and generalized myalgias * History of left lung cancer in remission, HLD, HTN, Cardiac stents, lumbar pain, insomnia, pre-diabetes, former smoker * In ED oxygen found to be 81% on room air; Up to 92% with 2L * 12-Lead EKG shows NSR at 72 BPM with no ectopy * CXR in ED: " Increased density within the left lung base as well as diffuse increased right-sided lung markings. Findings presumably represent diffuse change from Covid pneumonia." * Labs in ED: * WBC 6.01 * Hemoglobin 10.8 * Platelets 218,000. * Neutrophils 81.8% * D-dimer 4.31 * Sodium 139 * Potassium 4.8 * Carbon dioxide 28 * Anion gap 13.8 * BUN 19, creatinine 1.6, GFR 42 (appears to be at baseline from prior visits) * Glucose 134 * Bilirubin 0.5 * AST 10, ALT 25, alkaline phosphatase 58 * Troponin less than 0.017 * CRP 12.2 * Albumin 2.7 * BNP 547 * UA negative * ABG: Right radial pH 7.42, PCO2 42.7, PO2 63.0, HCO3 27.2, O2 saturation 90.8, base excess 2.9, A-a gradient 83, on 2L via NC * CTA obtained in ED: * 1. No findings of pulmonary embolism * 2. Diffuse interstitial change within both lungs with more focal density with left upper lung as well as within both lung bases. Particular on the left side. Findings most likely represent diffuse Covid pneumonia. * 3. Small left-sided pleural effusion. * Subsequently admitted to the hospital floor on telemetry for management of post Covid syndrome and hypoxia. 12/21/2020 * Reports improved respiratory status * Reports improved appetite * Continues to require 2L oxygen by NC * Ambulating around room, utilizing IS and acapella, proning when able (minimal tolerance) * Labs: * WBC 1.92 * Hgb 11.9 * Plt 202 * Neutrophils 1.51 * Sodium 143 * Anion gap 13.8 * BUN 21 * Creatinine 1.4 * GFR 49 * Glucose 145 * Magnesium 2.6 * AST 16, ALT 26, Alk Phos 64 * (Vitamin D from yesterday 25.9) * (A1C from yesterday 7.0) * Continue current treatment plan - Plan Plan:: Post-acute COVID-19 syndrome Elevated d-dimer Hypoxia History of COVID-19 Former smoker History of lung cancer * O2 as needed to keep saturations 88-95% * IS/Acapella * RT consultation * PRN albuterol * Continue home respiratory meds * Encourage proning and ambulating in room * Monitor daily labs * D-Dimer Q48 hours * 0.5mg/kg BID Lovenox for elevated d-dimer * Airborne/contact isolation * Dexamethasone 6mg daily - day 01/02 * Will hold off on remdesivir as patient is outside of window * Access port in left chest * Azithromycin 500mg daily - day 2 * Rocephin 2gm daily - Day 2 * Mucinex 600mg BID * Supplement vitamin D and zinc * Telemetry/continuous pulse oximetry Hypoalbuminemia * Labor Operator consult Prediabetes * QID AC and Bedtime glucose checks * Low intensity sliding scale insulin * Consistent carbohydrate diet * Labor Operator consultation CKD (chronic kidney disease) stage 3, GFR 30-59 ml/min HLD (hyperlipidemia) HTN (hypertension) Chronic lumbar pain History of heart artery stent * Telemetry * Review/reconcile home medications Code status: Full Code PCP: Martha Hartman NP with the [facility] Prophylaxis: Lovenox Social: Patient resides alone in a house in [place]. He has family in the area Disposition: Patient admitted inpatient for management of post-COVID symptoms, Hypoxia Prognosis: Good, although patient is former smoker and has history of lung cancer. May require oxygen at discharge. <Jesus Wade M - Last Filed: 12/21/20 11:36> - Patient Data Vitals - Most Recent: Last Vital Signs Temp 36.2 C 12/21/20 07:36 Pulse 60 12/21/20 07:36 Resp 18 12/21/20 07:36 BP 142/98 H 12/21/20 08:52 Pulse Ox 95 12/21/20 08:37 I&O - Last 24 Hours: Intake & Output 12/20/20 12/21/20 12/21/20 22:59 06:59 14:59 Intake Total 705 1100 180 Output Total 825 Balance 705 275 180 Lab Results Last 24 Hours: Laboratory Results - last 24 hr 12/20/20 12/20/20 12/20/20 Range/Units 11:35 11:35 11:35 WBC 6.01 (4.23-9.07) K/mm3 RBC 3.77 L (4.63-6.08) M/mm3 Hgb 10.8 L D (13.7-17.5) gm/dl Hct 34.8 L (40.1-51.0) % MCV 92.3 H (79.0-92.2) fl MCH 28.6 (25.7-32.2) pg MCHC 31.0 L (32.2-35.5) g/dl RDW Std Deviation 43.2 (35.1-43.9) fL Plt Count 218 (163-337) K/mm3 MPV 10.1 (9.4-12.3) fl Neut % (Auto) 81.8 H (34.0-67.9) % Lymph % (Auto) 4.5 L (21.8-53.1) % [place] % (Auto) 13.3 H (5.3-12.2) % Eos % (Auto) 0 L (0.8-7.0) Baso % (Auto) 0.2 (0.1-1.2) % Neut # (Auto) 4.92 (1.78-5.38) K/mm3 Lymph # (Auto) 0.27 L (1.32-3.57) K/mm3 [place] # (Auto) 0.80 (0.30-0.82) K/mm3 Eos # (Auto) 0.00 L (0.04-0.54) K/mm3 Baso # (Auto) 0.01 (0.01-0.08) K/mm3 Manual Slide Review Abnormal smear D-Dimer, Quantitative 4.31 H (0.19-0.50) mg/L Puncture Site ABG pH (7.35-7.45) ABG pCO2 (35.0-45.0) mmHg ABG pO2 (80.0-100.0) mmHg ABG HCO3 (22.0-26.0) meq/L ABG O2 Saturation (96.0-97.0) % ABG Base Excess (-2-2.0) Tyson Test A-a Gradient mmHg O2 Delivery Device Oxygen Flow Rate FiO2 (21.00-100.00) % Sodium 139 (136-145) mEq/L Potassium 4.8 (3.5-5.1) mEq/L Chloride 102 (98-107) mEq/L Carbon Dioxide 28 (21-32) mEq/L Anion Gap 13.8 (5-15) BUN 19 H (7-18) mg/dL Creatinine 1.6 H (0.7-1.3) mg/dL Est Cr Clr Drug Dosing 39.28 mL/min Estimated GFR (MDRD) 42 (>60) mL/min BUN/Creatinine Ratio 11.9 L (14-18) Glucose 134 H (83-115) mg/dL POC Glucose (83-110) mg/dL Hemoglobin A1c ( - 5.6) % Calcium 8.7 (8.5-10.1) mg/dL Phosphorus (2.6-4.7) mg/dL Magnesium (1.8-2.4) mg/dl Total Bilirubin 0.5 (0.2-1.0) mg/dL AST 10 L (15-37) U/L ALT 25 (16-63) U/L Alkaline Phosphatase 58 (46-116) U/L Troponin I < 0.017 (0.00-0.056) ng/mL C-Reactive Protein 12.2 H* (<1.0) mg/dL NT-Pro-B Natriuret Pep (0-450) pg/mL Total Protein 6.8 (6.4-8.2) g/dl Albumin 2.7 L (3.4-5.0) g/dl Globulin 4.1 gm/dL Albumin/Globulin Ratio 0.7 L (1-2) Vitamin D 25-Hydroxy (30.0-100.0) ng/ml Urine Color (Yellow) Urine Appearance (Clear) Urine pH (5.0-8.0) Ur Specific [place] (1.005-1.030) Urine Protein (Negative) Urine Glucose (UA) (Negative) Urine Ketones (Negative) Urine Occult Blood (Negative) Urine Nitrite (Negative) Urine Bilirubin (Negative) Urine Urobilinogen (0.2-1.0) Ur Leukocyte Esterase (Negative) Urine RBC (0-5) /hpf Urine WBC (0-5) /hpf Ur Squamous Epith Cells (0-5) /hpf Amorphous Sediment (NOT SEEN) /hpf Urine Bacteria (FEW) /hpf Urine Mucus (FEW) /hpf 12/20/20 12/20/20 12/20/20 Range/Units 11:35 11:35 11:35 WBC (4.23-9.07) K/mm3 RBC (4.63-6.08) M/mm3 Hgb (13.7-17.5) gm/dl Hct (40.1-51.0) % MCV (79.0-92.2) fl MCH (25.7-32.2) pg MCHC (32.2-35.5) g/dl RDW Std Deviation (35.1-43.9) fL Plt Count (163-337) K/mm3 MPV (9.4-12.3) fl Neut % (Auto) (34.0-67.9) % Lymph % (Auto) (21.8-53.1) % [place] % (Auto) (5.3-12.2) % Eos % (Auto) (0.8-7.0) Baso % (Auto) (0.1-1.2) % Neut # (Auto) (1.78-5.38) K/mm3 Lymph # (Auto) (1.32-3.57) K/mm3 [place] # (Auto) (0.30-0.82) K/mm3 Eos # (Auto) (0.04-0.54) K/mm3 Baso # (Auto) (0.01-0.08) K/mm3 Manual Slide Review D-Dimer, Quantitative (0.19-0.50) mg/L Puncture Site ABG pH (7.35-7.45) ABG pCO2 (35.0-45.0) mmHg ABG pO2 (80.0-100.0) mmHg ABG HCO3 (22.0-26.0) meq/L ABG O2 Saturation (96.0-97.0) % ABG Base Excess (-2-2.0) Tyson Test A-a Gradient mmHg O2 Delivery Device Oxygen Flow Rate FiO2 (21.00-100.00) % Sodium (136-145) mEq/L Potassium (3.5-5.1) mEq/L Chloride (98-107) mEq/L Carbon Dioxide (21-32) mEq/L Anion Gap (5-15) BUN (7-18) mg/dL Creatinine (0.7-1.3) mg/dL Est Cr Clr Drug Dosing mL/min Estimated GFR (MDRD) (>60) mL/min BUN/Creatinine Ratio (14-18) Glucose (83-115) mg/dL POC Glucose (83-110) mg/dL Hemoglobin A1c 7.0 H ( - 5.6) % Calcium (8.5-10.1) mg/dL Phosphorus (2.6-4.7) mg/dL Magnesium (1.8-2.4) mg/dl Total Bilirubin (0.2-1.0) mg/dL AST (15-37) U/L ALT (16-63) U/L Alkaline Phosphatase (46-116) U/L Troponin I (0.00-0.056) ng/mL C-Reactive Protein (<1.0) mg/dL NT-Pro-B Natriuret Pep 547 H (0-450) pg/mL Total Protein (6.4-8.2) g/dl Albumin (3.4-5.0) g/dl Globulin gm/dL Albumin/Globulin Ratio (1-2) Vitamin D 25-Hydroxy 25.9 L (30.0-100.0) ng/ml Urine Color (Yellow) Urine Appearance (Clear) Urine pH (5.0-8.0) Ur Specific [place] (1.005-1.030) Urine Protein (Negative) Urine Glucose (UA) (Negative) Urine Ketones (Negative) Urine Occult Blood (Negative) Urine Nitrite (Negative) Urine Bilirubin (Negative) Urine Urobilinogen (0.2-1.0) Ur Leukocyte Esterase (Negative) Urine RBC (0-5) /hpf Urine WBC (0-5) /hpf Ur Squamous Epith Cells (0-5) /hpf Amorphous Sediment (NOT SEEN) /hpf Urine Bacteria (FEW) /hpf Urine Mucus (FEW) /hpf 12/20/20 12/20/20 12/20/20 Range/Units 11:40 13:54 16:11 WBC (4.23-9.07) K/mm3 RBC (4.63-6.08) M/mm3 Hgb (13.7-17.5) gm/dl Hct (40.1-51.0) % MCV (79.0-92.2) fl MCH (25.7-32.2) pg MCHC (32.2-35.5) g/dl RDW Std Deviation (35.1-43.9) fL Plt Count (163-337) K/mm3 MPV (9.4-12.3) fl Neut % (Auto) (34.0-67.9) % Lymph % (Auto) (21.8-53.1) % [place] % (Auto) (5.3-12.2) % Eos % (Auto) (0.8-7.0) Baso % (Auto) (0.1-1.2) % Neut # (Auto) (1.78-5.38) K/mm3 Lymph # (Auto) (1.32-3.57) K/mm3 [place] # (Auto) (0.30-0.82) K/mm3 Eos # (Auto) (0.04-0.54) K/mm3 Baso # (Auto) (0.01-0.08) K/mm3 Manual Slide Review D-Dimer, Quantitative (0.19-0.50) mg/L Puncture Site Rt radial ABG pH 7.42 (7.35-7.45) ABG pCO2 42.7 (35.0-45.0) mmHg ABG pO2 63.0 L (80.0-100.0) mmHg ABG HCO3 27.2 H (22.0-26.0) meq/L ABG O2 Saturation 90.8 L (96.0-97.0) % ABG Base Excess 2.9 H (-2-2.0) Tyson Test Positive A-a Gradient 83 mmHg O2 Delivery Device Nasal cannula Oxygen Flow Rate 2.0 FiO2 28.00 (21.00-100.00) % Sodium (136-145) mEq/L Potassium (3.5-5.1) mEq/L Chloride (98-107) mEq/L Carbon Dioxide (21-32) mEq/L Anion Gap (5-15) BUN (7-18) mg/dL Creatinine (0.7-1.3) mg/dL Est Cr Clr Drug Dosing mL/min Estimated GFR (MDRD) (>60) mL/min BUN/Creatinine Ratio (14-18) Glucose (83-115) mg/dL POC Glucose 130 H (83-110) mg/dL Hemoglobin A1c ( - 5.6) % Calcium (8.5-10.1) mg/dL Phosphorus (2.6-4.7) mg/dL Magnesium (1.8-2.4) mg/dl Total Bilirubin (0.2-1.0) mg/dL AST (15-37) U/L ALT (16-63) U/L Alkaline Phosphatase (46-116) U/L Troponin I (0.00-0.056) ng/mL C-Reactive Protein (<1.0) mg/dL NT-Pro-B Natriuret Pep (0-450) pg/mL Total Protein (6.4-8.2) g/dl Albumin (3.4-5.0) g/dl Globulin gm/dL Albumin/Globulin Ratio (1-2) Vitamin D 25-Hydroxy (30.0-100.0) ng/ml Urine Color Light yellow (Yellow) Urine Appearance Slt cloudy H (Clear) Urine pH 7.0 (5.0-8.0) Ur Specific [place] 1.015 (1.005-1.030) Urine Protein Negative (Negative) Urine Glucose (UA) Negative (Negative) Urine Ketones Negative (Negative) Urine Occult Blood Negative (Negative) Urine Nitrite Negative (Negative) Urine Bilirubin Negative (Negative) Urine Urobilinogen 1.0 (0.2-1.0) Ur Leukocyte Esterase Negative (Negative) Urine RBC 0-5 (0-5) /hpf Urine WBC Not seen (0-5) /hpf Ur Squamous Epith Cells 0-5 (0-5) /hpf Amorphous Sediment Few H (NOT SEEN) /hpf Urine Bacteria Few (FEW) /hpf Urine Mucus Not seen (FEW) /hpf 12/20/20 12/21/20 12/21/20 Range/Units 20:31 05:19 05:19 WBC 1.92 L* (4.23-9.07) K/mm3 RBC 4.15 L (4.63-6.08) M/mm3 Hgb 11.9 L (13.7-17.5) gm/dl Hct 38.4 L (40.1-51.0) % MCV 92.5 H (79.0-92.2) fl MCH 28.7 (25.7-32.2) pg MCHC 31.0 L (32.2-35.5) g/dl RDW Std Deviation 42.9 (35.1-43.9) fL Plt Count 202 (163-337) K/mm3 MPV 10.5 (9.4-12.3) fl Neut % (Auto) 78.7 H (34.0-67.9) % Lymph % (Auto) 13.0 L (21.8-53.1) % [place] % (Auto) 8.3 (5.3-12.2) % Eos % (Auto) 0 L (0.8-7.0) Baso % (Auto) 0.0 L (0.1-1.2) % Neut # (Auto) 1.51 L (1.78-5.38) K/mm3 Lymph # (Auto) 0.25 L (1.32-3.57) K/mm3 [place] # (Auto) 0.16 L (0.30-0.82) K/mm3 Eos # (Auto) 0.00 L (0.04-0.54) K/mm3 Baso # (Auto) 0.00 L (0.01-0.08) K/mm3 Manual Slide Review Abnormal smear D-Dimer, Quantitative (0.19-0.50) mg/L Puncture Site ABG pH (7.35-7.45) ABG pCO2 (35.0-45.0) mmHg ABG pO2 (80.0-100.0) mmHg ABG HCO3 (22.0-26.0) meq/L ABG O2 Saturation (96.0-97.0) % ABG Base Excess (-2-2.0) Tyson Test A-a Gradient mmHg O2 Delivery Device Oxygen Flow Rate FiO2 (21.00-100.00) % Sodium 143 (136-145) mEq/L Potassium 4.8 (3.5-5.1) mEq/L Chloride 106 (98-107) mEq/L Carbon Dioxide 28 (21-32) mEq/L Anion Gap 13.8 (5-15) BUN 21 H (7-18) mg/dL Creatinine 1.4 H (0.7-1.3) mg/dL Est Cr Clr Drug Dosing 44.89 mL/min Estimated GFR (MDRD) 49 (>60) mL/min BUN/Creatinine Ratio 15.0 (14-18) Glucose 145 H (83-115) mg/dL POC Glucose 230 H (83-110) mg/dL Hemoglobin A1c ( - 5.6) % Calcium 9.0 (8.5-10.1) mg/dL Phosphorus 3.9 (2.6-4.7) mg/dL Magnesium 2.6 H (1.8-2.4) mg/dl Total Bilirubin 0.3 (0.2-1.0) mg/dL AST 16 (15-37) U/L ALT 26 (16-63) U/L Alkaline Phosphatase 64 (46-116) U/L Troponin I (0.00-0.056) ng/mL C-Reactive Protein (<1.0) mg/dL NT-Pro-B Natriuret Pep (0-450) pg/mL Total Protein 7.4 (6.4-8.2) g/dl Albumin 2.8 L (3.4-5.0) g/dl Globulin 4.6 gm/dL Albumin/Globulin Ratio 0.6 L (1-2) Vitamin D 25-Hydroxy (30.0-100.0) ng/ml Urine Color (Yellow) Urine Appearance (Clear) Urine pH (5.0-8.0) Ur Specific [place] (1.005-1.030) Urine Protein (Negative) Urine Glucose (UA) (Negative) Urine Ketones (Negative) Urine Occult Blood (Negative) Urine Nitrite (Negative) Urine Bilirubin (Negative) Urine Urobilinogen (0.2-1.0) Ur Leukocyte Esterase (Negative) Urine RBC (0-5) /hpf Urine WBC (0-5) /hpf Ur Squamous Epith Cells (0-5) /hpf Amorphous Sediment (NOT SEEN) /hpf Urine Bacteria (FEW) /hpf Urine Mucus (FEW) /hpf 12/21/20 Range/Units 06:32 WBC (4.23-9.07) K/mm3 RBC (4.63-6.08) M/mm3 Hgb (13.7-17.5) gm/dl Hct (40.1-51.0) % MCV (79.0-92.2) fl MCH (25.7-32.2) pg MCHC (32.2-35.5) g/dl RDW Std Deviation (35.1-43.9) fL Plt Count (163-337) K/mm3 MPV (9.4-12.3) fl Neut % (Auto) (34.0-67.9) % Lymph % (Auto) (21.8-53.1) % [place] % (Auto) (5.3-12.2) % Eos % (Auto) (0.8-7.0) Baso % (Auto) (0.1-1.2) % Neut # (Auto) (1.78-5.38) K/mm3 Lymph # (Auto) (1.32-3.57) K/mm3 [place] # (Auto) (0.30-0.82) K/mm3 Eos # (Auto) (0.04-0.54) K/mm3 Baso # (Auto) (0.01-0.08) K/mm3 Manual Slide Review D-Dimer, Quantitative (0.19-0.50) mg/L Puncture Site ABG pH (7.35-7.45) ABG pCO2 (35.0-45.0) mmHg ABG pO2 (80.0-100.0) mmHg ABG HCO3 (22.0-26.0) meq/L ABG O2 Saturation (96.0-97.0) % ABG Base Excess (-2-2.0) Tyson Test A-a Gradient mmHg O2 Delivery Device Oxygen Flow Rate FiO2 (21.00-100.00) % Sodium (136-145) mEq/L Potassium (3.5-5.1) mEq/L Chloride (98-107) mEq/L Carbon Dioxide (21-32) mEq/L Anion Gap (5-15) BUN (7-18) mg/dL Creatinine (0.7-1.3) mg/dL Est Cr Clr Drug Dosing mL/min Estimated GFR (MDRD) (>60) mL/min BUN/Creatinine Ratio (14-18) Glucose (83-115) mg/dL POC Glucose 156 H (83-110) mg/dL Hemoglobin A1c ( - 5.6) % Calcium (8.5-10.1) mg/dL Phosphorus (2.6-4.7) mg/dL Magnesium (1.8-2.4) mg/dl Total Bilirubin (0.2-1.0) mg/dL AST (15-37) U/L ALT (16-63) U/L Alkaline Phosphatase (46-116) U/L Troponin I (0.00-0.056) ng/mL C-Reactive Protein (<1.0) mg/dL NT-Pro-B Natriuret Pep (0-450) pg/mL Total Protein (6.4-8.2) g/dl Albumin (3.4-5.0) g/dl Globulin gm/dL Albumin/Globulin Ratio (1-2) Vitamin D 25-Hydroxy (30.0-100.0) ng/ml Urine Color (Yellow) Urine Appearance (Clear) Urine pH (5.0-8.0) Ur Specific [place] (1.005-1.030) Urine Protein (Negative) Urine Glucose (UA) (Negative) Urine Ketones (Negative) Urine Occult Blood (Negative) Urine Nitrite (Negative) Urine Bilirubin (Negative) Urine Urobilinogen (0.2-1.0) Ur Leukocyte Esterase (Negative) Urine RBC (0-5) /hpf Urine WBC (0-5) /hpf Ur Squamous Epith Cells (0-5) /hpf Amorphous Sediment (NOT SEEN) /hpf Urine Bacteria (FEW) /hpf Urine Mucus (FEW) /hpf Med Orders - Current: Current Medications Acetaminophen (Tylenol) 650 mg PO Q4H PRN PRN Reason: Pain (Mild 1-3)/fever Albuterol (Proventil Hfa) 0 gm INH Q2H PRN PRN Reason: SOB/Wheezing Azithromycin (Zithromax) 500 mg PO DAILY [facility] Stop: 12/22/20 09:01 Last Admin: 12/21/20 08:51 Dose: 500 mg Documented by: Buspirone HCl (Buspar) 15 mg PO TID [facility] Last Admin: 12/21/20 08:51 Dose: 15 mg Documented by: Cholecalciferol (Vitamin D3) 5,000 unit PO DAILY [facility] Last Admin: 12/21/20 08:52 Dose: 5,000 unit Documented by: Citalopram Hydrobromide (Celexa) 40 mg PO DAILY [facility] Last Admin: 12/21/20 08:52 Dose: 40 mg Documented by: Dexamethasone (Dexamethasone) 6 mg PO DAILY [facility] Stop: 12/29/20 09:01 Last Admin: 12/21/20 08:51 Dose: 6 mg Documented by: Enoxaparin Sodium (Lovenox) 50 mg SUBCUT Q12H [facility] Last Admin: 12/21/20 05:02 Dose: 50 mg Documented by: Guaifenesin (Mucinex) 600 mg PO BID [facility] Last Admin: 12/21/20 08:52 Dose: 600 mg Documented by: Ceftriaxone Sodium 2 gm/ (Sodium Chloride) 100 mls @ 200 mls/hr IV Q24H [facility] Stop: 12/24/20 16:29 Last Admin: 12/20/20 16:00 Dose: 200 mls/hr Documented by: Insulin Human Lispro (Humalog) 0 unit SUBCUT QIDACANDBED [facility]; Protocol Last Admin: 12/21/20 08:53 Dose: 1 units Documented by: Losartan Potassium (Cozaar) 50 mg PO DAILY [facility] Last Admin: 12/21/20 08:52 Dose: 50 mg Documented by: Ondansetron HCl (Zofran) 4 mg IV Q6H PRN PRN Reason: Nausea/Vomiting Sodium Chloride (Saline Flush) 10 ml FLUSH ASDIRECTED PRN PRN Reason: Keep Vein Open Last Admin: 12/20/20 11:42 Dose: 10 ml Documented by: Tiotropium [place] (Spiriva Respimat) 0 gm INH DAILY [facility] Last Admin: 12/21/20 08:37 Dose: 8 gm Documented by: Trazodone HCl (Trazodone) 100 mg PO BEDTIME [facility] Last Admin: 12/20/20 22:06 Dose: 100 mg Documented by: Zinc Sulfate (Zincate) 220 mg PO DAILY [facility] Last Admin: 12/21/20 08:51 Dose: 220 mg Documented by: Discontinued Medications Dexamethasone (Dexamethasone) 6 mg PO ONETIME ONE Stop: 12/20/20 13:28 Last Admin: 12/20/20 13:36 Dose: 6 mg Documented by: Enoxaparin Sodium (Lovenox) 40 mg SUBCUT DAILY [facility] Enoxaparin Sodium (Lovenox) 50 mg SUBCUT ONETIME ONE Stop: 12/20/20 16:01 Last Admin: 12/20/20 16:01 Dose: 50 mg Documented by: Sodium Chloride (Normal Saline) 1,000 mls @ 150 mls/hr IV NOW STA Stop: 12/20/20 19:02 Last Infusion: 12/20/20 13:35 Dose: 75 mls/hr Documented by: Sodium Chloride (Normal Saline) 100 mls @ 75 mls/hr IV ASDIRECTED [facility] Last Admin: 12/20/20 13:00 Dose: 75 mls/hr Documented by: Ceftriaxone Sodium 2 gm/ (Sodium Chloride) 100 mls @ 200 mls/hr IV Q24H [facility] Stop: 12/24/20 14:59 Last Admin: 12/20/20 17:46 Dose: Not Given Documented by: Iopamidol (Isovue-370 (76%)) 100 ml IVPUSH ONETIME ONE Stop: 12/20/20 12:59 Last Admin: 12/20/20 12:59 Dose: 100 ml Documented by: Non-Formulary Medication (Escitalopram) 20 mg PO DAILY [facility] Non-Formulary Medication (Tiotropium) 18 mcg INH DAILY [facility] Non-Formulary Medication (Trazodone) 100 mg PO BEDTIME [facility] Sodium Chloride (Saline Flush) 10 ml FLUSH ONETIME PRN PRN Reason: IV FLUSH Last Admin: 12/20/20 12:59 Dose: 10 ml Documented by: Sepsis Event Note - Focused Exam Vital Signs: Vital Signs Temp Pulse Resp BP Pulse Ox Pulse Ox 12/21/20 08:52 142/98 H 12/21/20 08:37 95 12/21/20 07:36 36.2 C 60 18 142/98 H 91 L 12/21/20 06:15 95 12/21/20 04:59 36.0 C L 52 L 14 146/83 H 100 12/21/20 01:33 35.2 C L 60 95 12/21/20 00:43 35.3 C L 40 L 14 123/71 97 12/20/20 23:41 49 L 96 - Plan Plan:: I have seen and examined the patient independently of Des Rogel PA-C. I have reviewed the orders and agree with the plan of care as outlined by him. I have discussed the case with him. Please see orders.
[2020-12-21] MEDS: Tiotropium Bromide 4 GM Inhalation Spray (2.5mcg/1 dose; 10 doses) INH SCH (08:37)
[2020-12-21] MEDS: Azithromycin 250 MG Tab PO SCH (08:51)
[2020-12-21] MEDS: Dexamethasone 4 MG Tab PO SCH (08:51)
[2020-12-21] MEDS: Zinc Sulfate 220 MG Cap PO SCH (08:51)
[2020-12-21] MEDS: busPIRone 15 MG Tab PO SCH ×3 (08:51→21:38)
[2020-12-21] MEDS: guaiFENesin 600 MG Tab.ER PO SCH ×2 (08:52→21:38)
[2020-12-21] MEDS: Citalopram 20 MG Tab PO SCH (08:52)
[2020-12-21] MEDS: Losartan 50 MG Tab PO SCH (08:52)
[2020-12-21] MEDS: Cholecalciferol (Vitamin D3) 5,000 UNIT Cap PO SCH (08:52)
[2020-12-21] MEDS ORDERED: Non-Formulary Medication 1 Each (Escitalopram 20 MG) PO SCH (09:00)
[2020-12-21] MEDS ORDERED: Enoxaparin 40 MG/0.4 ML Syringe SUBCUT SCH (09:00)
[2020-12-21] MEDS ORDERED: TIOTROPIUM 18 MCG INH SCH (09:00)
[2020-12-21] MEDS: cefTRIAXone 2 GM in Sodium Chloride 0.9% 100 ML IV SCH (15:37)
[2020-12-21] MEDS: traZODone 50 MG Tab PO SCH (21:38)
[2020-12-22] MEDS: Enoxaparin 60 MG/0.6 ML Syringe SUBCUT SCH ×2 (07:28→17:54)
[2020-12-22] MEDS: Tiotropium Bromide 4 GM Inhalation Spray (2.5mcg/1 dose; 10 doses) INH SCH (08:16)
--- NOTE | 2020-12-22 08:39 | PCM.PN ---
- General Info Date of Service: 12/22/20 Admission Dx/Problem (Free Text): Admission Diagnosis/Problem Admission Diagnosis/Problem Pneumonia, post COVID-19 Subjective Update: The patient is a 75-year-old gentleman who was admitted to acute hospitalization on December 20, 2020. The patient was admitted secondary to pneumonia associated with COVID-19. The patient had Covid initially 3 weeks ago. His oxygen saturations were 81% on RA. The patient today says that he has had a cough. He has been complaining of dry skin on his forehead. The patient has been tolerating his diet. Overall, the patient feels better. Functional Status: Reports: Pain Controlled, Tolerating Diet - Review of Systems General: Reports: Weakness HEENT: Reports: No Symptoms Pulmonary: Reports: Shortness of Breath, Cough. Denies: Sputum Cardiovascular: Reports: No Symptoms Gastrointestinal: Reports: No Symptoms Genitourinary: Reports: No Symptoms Musculoskeletal: Reports: No Symptoms Skin: Reports: Dryness Neurological: Reports: No Symptoms Psychiatric: Reports: No Symptoms - Patient Data Vitals - Most Recent: Last Vital Signs Temp 36.0 C L 12/22/20 03:43 Pulse 51 L 12/22/20 03:43 Resp 18 12/22/20 03:43 BP 129/76 12/22/20 03:43 Pulse Ox 97 12/22/20 08:17 Weight - Most Recent: 99.155 kg I&O - Last 24 Hours: Intake & Output 12/21/20 12/22/20 12/22/20 22:59 06:59 14:59 Intake Total 1280 900 Balance 1280 900 Lab Results Last 24 Hours: Laboratory Results - last 24 hr 12/21/20 12/21/20 12/21/20 Range/Units 12:09 17:04 20:32 WBC (4.23-9.07) K/mm3 RBC (4.63-6.08) M/mm3 Hgb (13.7-17.5) gm/dl Hct (40.1-51.0) % MCV (79.0-92.2) fl MCH (25.7-32.2) pg MCHC (32.2-35.5) g/dl RDW Std Deviation (35.1-43.9) fL Plt Count (163-337) K/mm3 MPV (9.4-12.3) fl Neut % (Auto) (34.0-67.9) % Lymph % (Auto) (21.8-53.1) % [place] % (Auto) (5.3-12.2) % Eos % (Auto) (0.8-7.0) Baso % (Auto) (0.1-1.2) % Neut # (Auto) (1.78-5.38) K/mm3 Lymph # (Auto) (1.32-3.57) K/mm3 [place] # (Auto) (0.30-0.82) K/mm3 Eos # (Auto) (0.04-0.54) K/mm3 Baso # (Auto) (0.01-0.08) K/mm3 Manual Slide Review D-Dimer, Quantitative (0.19-0.50) mg/L Sodium (136-145) mEq/L Potassium (3.5-5.1) mEq/L Chloride (98-107) mEq/L Carbon Dioxide (21-32) mEq/L Anion Gap (5-15) BUN (7-18) mg/dL Creatinine (0.7-1.3) mg/dL Est Cr Clr Drug Dosing mL/min Estimated GFR (MDRD) (>60) mL/min BUN/Creatinine Ratio (14-18) Glucose (83-115) mg/dL POC Glucose 126 H 157 H 272 H (83-110) mg/dL Calcium (8.5-10.1) mg/dL Magnesium (1.8-2.4) mg/dl Total Bilirubin (0.2-1.0) mg/dL AST (15-37) U/L ALT (16-63) U/L Alkaline Phosphatase (46-116) U/L Total Protein (6.4-8.2) g/dl Albumin (3.4-5.0) g/dl Globulin gm/dL Albumin/Globulin Ratio (1-2) 12/22/20 12/22/20 12/22/20 Range/Units 04:53 04:53 04:53 WBC 5.22 (4.23-9.07) K/mm3 RBC 3.61 L (4.63-6.08) M/mm3 Hgb 10.3 L D (13.7-17.5) gm/dl Hct 33.6 L (40.1-51.0) % MCV 93.1 H (79.0-92.2) fl MCH 28.5 (25.7-32.2) pg MCHC 30.7 L (32.2-35.5) g/dl RDW Std Deviation 42.4 (35.1-43.9) fL Plt Count 216 (163-337) K/mm3 MPV 10.4 (9.4-12.3) fl Neut % (Auto) 84.6 H (34.0-67.9) % Lymph % (Auto) 5.6 L (21.8-53.1) % [place] % (Auto) 9.6 (5.3-12.2) % Eos % (Auto) 0 L (0.8-7.0) Baso % (Auto) 0.2 (0.1-1.2) % Neut # (Auto) 4.42 (1.78-5.38) K/mm3 Lymph # (Auto) 0.29 L (1.32-3.57) K/mm3 [place] # (Auto) 0.50 (0.30-0.82) K/mm3 Eos # (Auto) 0.00 L (0.04-0.54) K/mm3 Baso # (Auto) 0.01 (0.01-0.08) K/mm3 Manual Slide Review Normal smear D-Dimer, Quantitative 2.59 H (0.19-0.50) mg/L Sodium 138 (136-145) mEq/L Potassium 4.7 (3.5-5.1) mEq/L Chloride 106 (98-107) mEq/L Carbon Dioxide 29 (21-32) mEq/L Anion Gap 7.7 (5-15) BUN 27 H (7-18) mg/dL Creatinine 1.2 (0.7-1.3) mg/dL Est Cr Clr Drug Dosing 52.37 mL/min Estimated GFR (MDRD) 59 (>60) mL/min BUN/Creatinine Ratio 22.5 H (14-18) Glucose 118 H (83-115) mg/dL POC Glucose (83-110) mg/dL Calcium 8.6 (8.5-10.1) mg/dL Magnesium 2.3 (1.8-2.4) mg/dl Total Bilirubin 0.2 (0.2-1.0) mg/dL AST 17 (15-37) U/L ALT 26 (16-63) U/L Alkaline Phosphatase 56 (46-116) U/L Total Protein 6.3 L (6.4-8.2) g/dl Albumin 2.4 L (3.4-5.0) g/dl Globulin 3.9 gm/dL Albumin/Globulin Ratio 0.6 L (1-2) Med Orders - Current: Current Medications Acetaminophen (Tylenol) 650 mg PO Q4H PRN PRN Reason: Pain (Mild 1-3)/fever Albuterol (Proventil Hfa) 0 gm INH Q2H PRN PRN Reason: SOB/Wheezing Azithromycin (Zithromax) 500 mg PO DAILY [facility] Stop: 12/22/20 09:01 Last Admin: 12/21/20 08:51 Dose: 500 mg Documented by: Buspirone HCl (Buspar) 15 mg PO TID [facility] Last Admin: 12/21/20 21:38 Dose: 15 mg Documented by: Cholecalciferol (Vitamin D3) 5,000 unit PO DAILY [facility] Last Admin: 12/21/20 08:52 Dose: 5,000 unit Documented by: Citalopram Hydrobromide (Celexa) 40 mg PO DAILY [facility] Last Admin: 12/21/20 08:52 Dose: 40 mg Documented by: Dexamethasone (Dexamethasone) 6 mg PO DAILY [facility] Stop: 12/29/20 09:01 Last Admin: 12/21/20 08:51 Dose: 6 mg Documented by: Enoxaparin Sodium (Lovenox) 50 mg SUBCUT Q12H [facility] Last Admin: 12/22/20 07:28 Dose: 50 mg Documented by: Guaifenesin (Mucinex) 600 mg PO BID [facility] Last Admin: 12/21/20 21:38 Dose: 600 mg Documented by: Ceftriaxone Sodium 2 gm/ (Sodium Chloride) 100 mls @ 200 mls/hr IV Q24H [facility] Stop: 12/24/20 16:29 Last Admin: 12/21/20 15:37 Dose: 200 mls/hr Documented by: Insulin Human Lispro (Humalog) 0 unit SUBCUT QIDACANDBED [facility]; Protocol Last Admin: 12/22/20 07:30 Dose: Not Given Documented by: Losartan Potassium (Cozaar) 50 mg PO DAILY [facility] Last Admin: 12/21/20 08:52 Dose: 50 mg Documented by: Ondansetron HCl (Zofran) 4 mg IV Q6H PRN PRN Reason: Nausea/Vomiting Sodium Chloride (Saline Flush) 10 ml FLUSH ASDIRECTED PRN PRN Reason: Keep Vein Open Last Admin: 12/20/20 11:42 Dose: 10 ml Documented by: Tiotropium [place] (Spiriva Respimat) 0 gm INH DAILY [facility] Last Admin: 12/22/20 08:16 Dose: 8 gm Documented by: Trazodone HCl (Trazodone) 100 mg PO BEDTIME [facility] Last Admin: 12/21/20 21:38 Dose: 100 mg Documented by: Zinc Sulfate (Zincate) 220 mg PO DAILY [facility] Last Admin: 12/21/20 08:51 Dose: 220 mg Documented by: Discontinued Medications Dexamethasone (Dexamethasone) 6 mg PO ONETIME ONE Stop: 12/20/20 13:28 Last Admin: 12/20/20 13:36 Dose: 6 mg Documented by: Enoxaparin Sodium (Lovenox) 40 mg SUBCUT DAILY [facility] Enoxaparin Sodium (Lovenox) 50 mg SUBCUT ONETIME ONE Stop: 12/20/20 16:01 Last Admin: 12/20/20 16:01 Dose: 50 mg Documented by: Sodium Chloride (Normal Saline) 1,000 mls @ 150 mls/hr IV NOW STA Stop: 12/20/20 19:02 Last Infusion: 12/20/20 13:35 Dose: 75 mls/hr Documented by: Sodium Chloride (Normal Saline) 100 mls @ 75 mls/hr IV ASDIRECTED [facility] Last Admin: 12/20/20 13:00 Dose: 75 mls/hr Documented by: Ceftriaxone Sodium 2 gm/ (Sodium Chloride) 100 mls @ 200 mls/hr IV Q24H [facility] Stop: 12/24/20 14:59 Last Admin: 12/20/20 17:46 Dose: Not Given Documented by: Iopamidol (Isovue-370 (76%)) 100 ml IVPUSH ONETIME ONE Stop: 12/20/20 12:59 Last Admin: 12/20/20 12:59 Dose: 100 ml Documented by: Non-Formulary Medication (Escitalopram) 20 mg PO DAILY [facility] Non-Formulary Medication (Tiotropium) 18 mcg INH DAILY [facility] Non-Formulary Medication (Trazodone) 100 mg PO BEDTIME [facility] Sodium Chloride (Saline Flush) 10 ml FLUSH ONETIME PRN PRN Reason: IV FLUSH Last Admin: 12/20/20 12:59 Dose: 10 ml Documented by: - Exam Quality Assessment: Supplemental Oxygen, DVT Prophylaxis General: Alert, Oriented, Cooperative, No Acute Distress HEENT: Pupils Equal, Pupils Reactive, EOMI. No: Mucous Membr. Moist/[place] (Dry) Neck: Supple, Trachea Midline Lungs: Crackles (Widely scattered) Cardiovascular: Regular Rate, Regular Rhythm GI/Abdominal Exam: Normal Bowel Sounds, Soft, No Distention (Male) Exam: Deferred Back Exam: Normal Inspection, Full Range of Motion Extremities: Normal Inspection, No Pedal Edema Skin: Warm, Dry (Forehead), Intact Neurological: No New Focal Deficit Psy/Mental Status: Alert, Normal Affect, Normal Mood Sepsis Event Note - Evaluation Sepsis Screening Result: No Definite Risk - Focused Exam Vital Signs: Vital Signs Temp Pulse Pulse Resp BP Pulse Ox Pulse Ox 12/22/20 08:17 97 12/22/20 03:43 36.0 C L 51 L 18 129/76 97 12/22/20 00:00 48 L 18 100 - Problem List & Annotations (1) Pneumonia due to COVID-19 virus SNOMED Code(s): 353377771114858987 Code(s): U07.1 - COVID-19; J12.82 - PNEUMONIA DUE TO CORONAVIRUS DISEASE 2018 Status: Acute Priority: High Current Visit: Yes (2) Hypoxia SNOMED Code(s): 286756922 Code(s): R09.02 - HYPOXEMIA Status: Acute Priority: High Current Visit: Yes (3) History of COVID-19 SNOMED Code(s): 657190992330923834, 138535362410298985 Code(s): Z86.16 - PERSONAL HISTORY OF COVID-19 Status: Chronic Priority: Medium Current Visit: Yes (4) Post-acute COVID-19 syndrome SNOMED Code(s): 228798689, 682508335310677332 Code(s): B94.8 - SEQUELAE OF OTH INFECTIOUS AND PARASITIC DISEASES Status: Chronic Priority: High Current Visit: Yes (5) Prediabetes SNOMED Code(s): 756978541 Code(s): R73.03 - PREDIABETES Status: Chronic Priority: High Current Visit: Yes (6) CKD (chronic kidney disease) stage 3, GFR 30-59 ml/min SNOMED Code(s): 886276121 Code(s): N18.30 - CHRONIC KIDNEY DISEASE, STAGE 3 UNSPECIFIED Status: Chronic Priority: High Current Visit: Yes Qualifiers: Chronic kidney disease stage 3 subtype: stage 3b (GFR 30-44) Qualified Code(s): N18.32 - Chronic kidney disease, stage 3b - Problem List Review Problem List Initiated/Reviewed/Updated: Yes - Assessment Assessment:: Assessment - Day of admission 12/20/20 * 75 yo male who presents to our ED with complaints of COVID-19 symptoms for over 3 weeks * Started feeling ill on 12/01/20 and COVID-19 positive on 12/06/20 * Reports SOB, cough, sputum, excessive sputum, fatigue, fever, chills, nausea, decreased appetite and generalized myalgias * History of left lung cancer in remission, HLD, HTN, Cardiac stents, lumbar pain, insomnia, pre-diabetes, former smoker * In ED oxygen found to be 81% on room air; Up to 92% with 2L * 12-Lead EKG shows NSR at 72 BPM with no ectopy * CXR in ED: " Increased density within the left lung base as well as diffuse increased right-sided lung markings. Findings presumably represent diffuse change from Covid pneumonia." * Labs in ED: * WBC 6.01 * Hemoglobin 10.8 * Platelets 218,000. * Neutrophils 81.8% * D-dimer 4.31 * Sodium 139 * Potassium 4.8 * Carbon dioxide 28 * Anion gap 13.8 * BUN 19, creatinine 1.6, GFR 42 (appears to be at baseline from prior visits) * Glucose 134 * Bilirubin 0.5 * AST 10, ALT 25, alkaline phosphatase 58 * Troponin less than 0.017 * CRP 12.2 * Albumin 2.7 * BNP 547 * UA negative * ABG: Right radial pH 7.42, PCO2 42.7, PO2 63.0, HCO3 27.2, O2 saturation 90.8, base excess 2.9, A-a gradient 83, on 2L via NC * CTA obtained in ED: * 1. No findings of pulmonary embolism * 2. Diffuse interstitial change within both lungs with more focal density with left upper lung as well as within both lung bases. Particular on the left side. Findings most likely represent diffuse Covid pneumonia. * 3. Small left-sided pleural effusion. * Subsequently admitted to the hospital floor on telemetry for management of post Covid syndrome and hypoxia. 12/21/2020 * Reports improved respiratory status * Reports improved appetite * Continues to require 2L oxygen by NC * Ambulating around room, utilizing IS and acapella, proning when able (minimal tolerance) * Labs: * WBC 1.92 * Hgb 11.9 * Plt 202 * Neutrophils 1.51 * Sodium 143 * Anion gap 13.8 * BUN 21 * Creatinine 1.4 * GFR 49 * Glucose 145 * Magnesium 2.6 * AST 16, ALT 26, Alk Phos 64 * (Vitamin D from yesterday 25.9) * (A1C from yesterday 7.0) * Continue current treatment plan 12/22/2020 The patient is a 75-year-old gentleman who is doing much better as compared to admission. The patient is currently on ceftriaxone and is will be continued for his post Covid pneumonia. The patient will also be kept on the dexamethasone. The patient also had hemoglobin A1c completed at 7.0% and the patient will need to follow-up with his primary care physician as an outpatient for further treatment of diabetes. The patient we kept on insulin sliding scale and kept on a carb constant diet. The patient will need to have Metformin on discharge. The patient has been encouraged to ambulate. Continue with use of incentive spirometer and Acapella. He will also likely be appropriate for discharge in 1 to 2 days. Repeat laboratory studies have been ordered for the morning. - Plan Plan:: I have seen and examined the patient independently of Des Rogel PA-C. I have reviewed the orders and agree with the plan of care as outlined by him. I have discussed the case with him. Please see orders.
[2020-12-22] MEDS: Dexamethasone 4 MG Tab PO SCH (09:33)
[2020-12-22] MEDS: Cholecalciferol (Vitamin D3) 5,000 UNIT Cap PO SCH (09:33)
[2020-12-22] MEDS: Zinc Sulfate 220 MG Cap PO SCH (09:34)
[2020-12-22] MEDS: guaiFENesin 600 MG Tab.ER PO SCH ×2 (09:34→21:38)
[2020-12-22] MEDS: busPIRone 15 MG Tab PO SCH ×3 (09:35→21:37)
[2020-12-22] MEDS: Azithromycin 250 MG Tab PO SCH (09:35)
[2020-12-22] MEDS: Citalopram 20 MG Tab PO SCH (09:36)
[2020-12-22] MEDS: Losartan 50 MG Tab PO SCH (09:37)
[2020-12-22] MEDS: cefTRIAXone 2 GM in Sodium Chloride 0.9% 100 ML IV SCH (15:11)
[2020-12-22] MEDS: traZODone 50 MG Tab PO SCH (21:38)
[2020-12-22] MEDS: Famotidine 20 MG Tab PO SCH (21:38)
[2020-12-23] MEDS: Enoxaparin 60 MG/0.6 ML Syringe SUBCUT SCH ×2 (05:06→18:50)
[2020-12-23] MEDS: Zinc Sulfate 220 MG Cap PO SCH (08:57)
[2020-12-23] MEDS: Citalopram 20 MG Tab PO SCH (08:57)
[2020-12-23] MEDS: Dexamethasone 4 MG Tab PO SCH (08:57)
[2020-12-23] MEDS: Cholecalciferol (Vitamin D3) 5,000 UNIT Cap PO SCH (08:58)
[2020-12-23] MEDS: Losartan 50 MG Tab PO SCH (08:58)
[2020-12-23] MEDS: busPIRone 15 MG Tab PO SCH ×3 (08:58→20:50)
[2020-12-23] MEDS: Famotidine 20 MG Tab PO SCH ×2 (08:58→20:50)
[2020-12-23] MEDS: guaiFENesin 600 MG Tab.ER PO SCH ×2 (08:58→20:50)
[2020-12-23] MEDS: Tiotropium Bromide 4 GM Inhalation Spray (2.5mcg/1 dose; 10 doses) INH SCH (09:14)
--- NOTE | 2020-12-23 11:05 | PCM.PN ---
- General Info Date of Service: 12/23/20 Admission Dx/Problem (Free Text): Admission Diagnosis/Problem Admission Diagnosis/Problem Pneumonia, post COVID-19 Subjective Update: Patient states he is feeling better today. He is breathing easier and we have been able to wean him down to 1 L. Appetite is better. Functional Status: Reports: Pain Controlled - Review of Systems General: Reports: No Symptoms HEENT: Reports: No Symptoms Pulmonary: Reports: No Symptoms Cardiovascular: Reports: No Symptoms Gastrointestinal: Reports: No Symptoms Musculoskeletal: Reports: No Symptoms Neurological: Reports: No Symptoms - Patient Data Vitals - Most Recent: Last Vital Signs Temp 98.4 F 12/23/20 07:55 Pulse 55 L 12/23/20 07:55 Resp 16 12/23/20 07:55 BP 138/80 12/23/20 08:58 Pulse Ox 95 12/23/20 09:14 Weight - Most Recent: 216 lb 6.4 oz I&O - Last 24 Hours: Intake & Output 12/22/20 12/23/20 12/23/20 22:59 06:59 14:59 Intake Total 840 800 Balance 840 800 Lab Results Last 24 Hours: Laboratory Results - last 24 hr 12/22/20 12/22/20 12/22/20 Range/Units 05:53 11:29 17:00 WBC (4.23-9.07) K/mm3 RBC (4.63-6.08) M/mm3 Hgb (13.7-17.5) gm/dl Hct (40.1-51.0) % MCV (79.0-92.2) fl MCH (25.7-32.2) pg MCHC (32.2-35.5) g/dl RDW Std Deviation (35.1-43.9) fL Plt Count (163-337) K/mm3 MPV (9.4-12.3) fl Neut % (Auto) (34.0-67.9) % Lymph % (Auto) (21.8-53.1) % Terry % (Auto) (5.3-12.2) % Eos % (Auto) (0.8-7.0) Baso % (Auto) (0.1-1.2) % Neut # (Auto) (1.78-5.38) K/mm3 Lymph # (Auto) (1.32-3.57) K/mm3 Terry # (Auto) (0.30-0.82) K/mm3 Eos # (Auto) (0.04-0.54) K/mm3 Baso # (Auto) (0.01-0.08) K/mm3 Manual Slide Review Sodium (136-145) mEq/L Potassium (3.5-5.1) mEq/L Chloride (98-107) mEq/L Carbon Dioxide (21-32) mEq/L Anion Gap (5-15) BUN (7-18) mg/dL Creatinine (0.7-1.3) mg/dL Est Cr Clr Drug Dosing mL/min Estimated GFR (MDRD) (>60) mL/min BUN/Creatinine Ratio (14-18) Glucose (83-115) mg/dL POC Glucose 116 H 104 161 H (83-110) mg/dL Calcium (8.5-10.1) mg/dL Magnesium (1.8-2.4) mg/dl Total Bilirubin (0.2-1.0) mg/dL AST (15-37) U/L ALT (16-63) U/L Alkaline Phosphatase (46-116) U/L Total Protein (6.4-8.2) g/dl Albumin (3.4-5.0) g/dl Globulin gm/dL Albumin/Globulin Ratio (1-2) 12/22/20 12/23/20 12/23/20 Range/Units 20:47 05:11 05:11 WBC 4.16 L (4.23-9.07) K/mm3 RBC 3.78 L (4.63-6.08) M/mm3 Hgb 10.9 L (13.7-17.5) gm/dl Hct 34.9 L (40.1-51.0) % MCV 92.3 H (79.0-92.2) fl MCH 28.8 (25.7-32.2) pg MCHC 31.2 L (32.2-35.5) g/dl RDW Std Deviation 42.9 (35.1-43.9) fL Plt Count 202 (163-337) K/mm3 MPV 10.3 (9.4-12.3) fl Neut % (Auto) 82.0 H (34.0-67.9) % Lymph % (Auto) 7.0 L (21.8-53.1) % Terry % (Auto) 10.3 (5.3-12.2) % Eos % (Auto) 0 L (0.8-7.0) Baso % (Auto) 0.2 (0.1-1.2) % Neut # (Auto) 3.41 (1.78-5.38) K/mm3 Lymph # (Auto) 0.29 L (1.32-3.57) K/mm3 Terry # (Auto) 0.43 (0.30-0.82) K/mm3 Eos # (Auto) 0.00 L (0.04-0.54) K/mm3 Baso # (Auto) 0.01 (0.01-0.08) K/mm3 Manual Slide Review Abnormal smear Sodium 143 (136-145) mEq/L Potassium 4.9 (3.5-5.1) mEq/L Chloride 107 (98-107) mEq/L Carbon Dioxide 27 (21-32) mEq/L Anion Gap 13.9 (5-15) BUN 33 H (7-18) mg/dL Creatinine 1.3 (0.7-1.3) mg/dL Est Cr Clr Drug Dosing 48.34 mL/min Estimated GFR (MDRD) 54 (>60) mL/min BUN/Creatinine Ratio 25.4 H (14-18) Glucose 129 H (83-115) mg/dL POC Glucose 240 H (83-110) mg/dL Calcium 8.9 (8.5-10.1) mg/dL Magnesium 2.3 (1.8-2.4) mg/dl Total Bilirubin 0.2 (0.2-1.0) mg/dL AST 13 L (15-37) U/L ALT 23 (16-63) U/L Alkaline Phosphatase 54 (46-116) U/L Total Protein 6.5 (6.4-8.2) g/dl Albumin 2.6 L (3.4-5.0) g/dl Globulin 3.9 gm/dL Albumin/Globulin Ratio 0.7 L (1-2) Med Orders - Current: Current Medications Acetaminophen (Tylenol) 650 mg PO Q4H PRN PRN Reason: Pain (Mild 1-3)/fever Albuterol (Proventil Hfa) 0 gm INH Q2H PRN PRN Reason: SOB/Wheezing Buspirone HCl (Buspar) 15 mg PO TID [facility] Last Admin: 12/23/20 08:58 Dose: 15 mg Documented by: Cholecalciferol (Vitamin D3) 5,000 unit PO DAILY [facility] Last Admin: 12/23/20 08:58 Dose: 5,000 unit Documented by: Citalopram Hydrobromide (Celexa) 40 mg PO DAILY [facility] Last Admin: 12/23/20 08:57 Dose: 40 mg Documented by: Dexamethasone (Dexamethasone) 6 mg PO DAILY [facility] Stop: 12/29/20 09:01 Last Admin: 12/23/20 08:57 Dose: 6 mg Documented by: Enoxaparin Sodium (Lovenox) 50 mg SUBCUT Q12H [facility] Last Admin: 12/23/20 05:06 Dose: 50 mg Documented by: Famotidine (Pepcid) 20 mg PO BID [facility] Last Admin: 12/23/20 08:58 Dose: 20 mg Documented by: Guaifenesin (Mucinex) 600 mg PO BID [facility] Last Admin: 12/23/20 08:58 Dose: 600 mg Documented by: Ceftriaxone Sodium 2 gm/ (Sodium Chloride) 100 mls @ 200 mls/hr IV Q24H [facility] Stop: 12/24/20 16:29 Last Admin: 12/22/20 15:11 Dose: 200 mls/hr Documented by: Insulin Human Lispro (Humalog) 0 unit SUBCUT QIDACANDBED [facility]; Protocol Last Admin: 12/23/20 06:53 Dose: Not Given Documented by: Losartan Potassium (Cozaar) 50 mg PO DAILY [facility] Last Admin: 12/23/20 08:58 Dose: 50 mg Documented by: Ondansetron HCl (Zofran) 4 mg IV Q6H PRN PRN Reason: Nausea/Vomiting Sodium Chloride (Saline Flush) 10 ml FLUSH ASDIRECTED PRN PRN Reason: Keep Vein Open Last Admin: 12/20/20 11:42 Dose: 10 ml Documented by: Tiotropium [place] (Spiriva Respimat) 0 gm INH DAILY [facility] Last Admin: 12/23/20 09:14 Dose: 4 gm Documented by: Trazodone HCl (Trazodone) 100 mg PO BEDTIME [facility] Last Admin: 12/22/20 21:38 Dose: 100 mg Documented by: Zinc Sulfate (Zincate) 220 mg PO DAILY [facility] Last Admin: 12/23/20 08:57 Dose: 220 mg Documented by: Discontinued Medications Azithromycin (Zithromax) 500 mg PO DAILY [facility] Stop: 12/22/20 09:01 Last Admin: 12/22/20 09:35 Dose: 500 mg Documented by: Dexamethasone (Dexamethasone) 6 mg PO ONETIME ONE Stop: 12/20/20 13:28 Last Admin: 12/20/20 13:36 Dose: 6 mg Documented by: Enoxaparin Sodium (Lovenox) 40 mg SUBCUT DAILY [facility] Enoxaparin Sodium (Lovenox) 50 mg SUBCUT ONETIME ONE Stop: 12/20/20 16:01 Last Admin: 12/20/20 16:01 Dose: 50 mg Documented by: Sodium Chloride (Normal Saline) 1,000 mls @ 150 mls/hr IV NOW STA Stop: 12/20/20 19:02 Last Infusion: 12/20/20 13:35 Dose: 75 mls/hr Documented by: Sodium Chloride (Normal Saline) 100 mls @ 75 mls/hr IV ASDIRECTED [facility] Last Admin: 12/20/20 13:00 Dose: 75 mls/hr Documented by: Ceftriaxone Sodium 2 gm/ (Sodium Chloride) 100 mls @ 200 mls/hr IV Q24H [facility] Stop: 12/24/20 14:59 Last Admin: 12/20/20 17:46 Dose: Not Given Documented by: Iopamidol (Isovue-370 (76%)) 100 ml IVPUSH ONETIME ONE Stop: 12/20/20 12:59 Last Admin: 12/20/20 12:59 Dose: 100 ml Documented by: Non-Formulary Medication (Escitalopram) 20 mg PO DAILY [facility] Non-Formulary Medication (Tiotropium) 18 mcg INH DAILY [facility] Non-Formulary Medication (Trazodone) 100 mg PO BEDTIME [facility] Sodium Chloride (Saline Flush) 10 ml FLUSH ONETIME PRN PRN Reason: IV FLUSH Last Admin: 12/20/20 12:59 Dose: 10 ml Documented by: - Exam Quality Assessment: Supplemental Oxygen General: Alert, Oriented HEENT: Pupils Equal, Mucous Membr. Moist/[place] Neck: Supple Lungs: Normal Respiratory Effort, Wheezing (Throughout) Cardiovascular: Regular Rate, Regular Rhythm GI/Abdominal Exam: Normal Bowel Sounds, Soft, No Distention, No Abnormal Bruit Extremities: Normal Inspection, Normal Range of Motion, Non-Tender, No Pedal Edema, Normal Capillary Refill Skin: Warm, Dry, Intact Psy/Mental Status: Alert, Normal Affect, Normal Mood Sepsis Event Note - Evaluation Sepsis Screening Result: No Definite Risk - Focused Exam Vital Signs: Vital Signs Temp Pulse Resp BP Pulse Ox Pulse Ox 12/23/20 09:14 95 12/23/20 08:58 138/80 12/23/20 07:55 98.4 F 55 L 16 138/80 96 12/23/20 05:00 136/76 12/23/20 03:53 97.2 F 52 L 16 176/98 H 98 12/22/20 23:28 97.3 F 55 L 16 146/97 H 93 L - Problem List & Annotations (1) HTN (hypertension) SNOMED Code(s): 15670200 Code(s): I10 - ESSENTIAL (PRIMARY) HYPERTENSION Status: Acute Current Visit: Yes (2) Hypoalbuminemia SNOMED Code(s): 132834469 Code(s): E88.09 - OTH DISORDERS OF PLASMA-PROTEIN METABOLISM, NEC Status: Acute Current Visit: Yes (3) Neutropenia SNOMED Code(s): 998259021 Code(s): D70.9 - NEUTROPENIA, UNSPECIFIED Status: Acute Priority: Medium Current Visit: Yes Qualifiers: Neutropenia type: due to infection Qualified Code(s): D70.3 - Neutropenia due to infection (4) Pneumonia due to COVID-19 virus SNOMED Code(s): 542914793208864850 Code(s): U07.1 - COVID-19; J12.82 - PNEUMONIA DUE TO CORONAVIRUS DISEASE 2019 Status: Acute Priority: High Current Visit: Yes (5) CKD (chronic kidney disease) stage 3, GFR 30-59 ml/min SNOMED Code(s): 944348376 Code(s): N18.30 - CHRONIC KIDNEY DISEASE, STAGE 3 UNSPECIFIED Status: Chronic Priority: High Current Visit: Yes Qualifiers: Chronic kidney disease stage 3 subtype: stage 3b (GFR 30-44) Qualified Code(s): N18.32 - Chronic kidney disease, stage 3b (6) Post-acute COVID-19 syndrome SNOMED Code(s): 109571485, 124400004587453236 Code(s): B94.8 - SEQUELAE OF OTH INFECTIOUS AND PARASITIC DISEASES Status: Chronic Priority: High Current Visit: Yes - Problem List Review Problem List Initiated/Reviewed/Updated: Yes - Assessment Assessment:: Assessment - Day of admission 12/20/20 * 75 yo male who presents to our ED with complaints of COVID-19 symptoms for over 3 weeks * Started feeling ill on 12/01/20 and COVID-19 positive on 12/06/20 * Reports SOB, cough, sputum, excessive sputum, fatigue, fever, chills, nausea, decreased appetite and generalized myalgias * History of left lung cancer in remission, HLD, HTN, Cardiac stents, lumbar pain, insomnia, pre-diabetes, former smoker * In ED oxygen found to be 81% on room air; Up to 92% with 2L * 12-Lead EKG shows NSR at 72 BPM with no ectopy * CXR in ED: " Increased density within the left lung base as well as diffuse increased right-sided lung markings. Findings presumably represent diffuse change from Covid pneumonia." * Labs in ED: * WBC 6.01 * Hemoglobin 10.8 * Platelets 218,000. * Neutrophils 81.8% * D-dimer 4.31 * Sodium 139 * Potassium 4.8 * Carbon dioxide 28 * Anion gap 13.8 * BUN 19, creatinine 1.6, GFR 42 (appears to be at baseline from prior visits) * Glucose 134 * Bilirubin 0.5 * AST 10, ALT 25, alkaline phosphatase 58 * Troponin less than 0.017 * CRP 12.2 * Albumin 2.7 * BNP 547 * UA negative * ABG: Right radial pH 7.42, PCO2 42.7, PO2 63.0, HCO3 27.2, O2 saturation 90.8, base excess 2.9, A-a gradient 83, on 2L via NC * CTA obtained in ED: * 1. No findings of pulmonary embolism * 2. Diffuse interstitial change within both lungs with more focal density with left upper lung as well as within both lung bases. Particular on the left side. Findings most likely represent diffuse Covid pneumonia. * 3. Small left-sided pleural effusion. * Subsequently admitted to the hospital floor on telemetry for management of post Covid syndrome and hypoxia. 12/21/2020 * Reports improved respiratory status * Reports improved appetite * Continues to require 2L oxygen by NC * Ambulating around room, utilizing IS and acapella, proning when able (minimal tolerance) * Labs: * WBC 1.92 * Hgb 11.9 * Plt 202 * Neutrophils 1.51 * Sodium 143 * Anion gap 13.8 * BUN 21 * Creatinine 1.4 * GFR 49 * Glucose 145 * Magnesium 2.6 * AST 16, ALT 26, Alk Phos 64 * (Vitamin D from yesterday 25.9) * (A1C from yesterday 7.0) * Continue current treatment plan 12/22/2020 The patient is a 75-year-old gentleman who is doing much better as compared to admission. The patient is currently on ceftriaxone and is will be continued for his post Covid pneumonia. The patient will also be kept on the dexamethasone. The patient also had hemoglobin A1c completed at 7.0% and the patient will need to follow-up with his primary care physician as an outpatient for further treatment of diabetes. The patient we kept on insulin sliding scale and kept on a carb constant diet. The patient will need to have Metformin on discharge. The patient has been encouraged to ambulate. Continue with use of incentive spirometer and Acapella. He will also likely be appropriate for discharge in 1 to 2 days. Repeat laboratory studies have been ordered for the morning. 12/23/2020 Patient is 18 days out of his Covid diagnosis and 23 days post his first symptoms. He is significantly improved with decreasing O2 intake and patient states he is trying to exercise in the room. He would get significant improvement if we could take him off of strict isolation, therefore I will check a Covid PCR today and if it is negative we will take him off of precautions. If it is positive we will continue them for the full 20 days post diagnosis, but most likely this is overly protective. Patient albumin is starting to improve which is also a good sign. Unfortunately, dexamethasone does make his treating his diabetes more difficult. He continues to be wheezy and he does have history of lung cancer with his last chemo in October. This too makes both his Covid more complicated and also the fact that he has an underlying lung disease. Hopefully will be able to wean him down or off of his oxygen before discharge, but if not we will qualify [facility] I agree with Dr. Lee above that he will likely need Metformin on discharge.
[2020-12-23] MEDS: cefTRIAXone 2 GM in Sodium Chloride 0.9% 100 ML IV SCH (16:18)
[2020-12-23] MEDS: traZODone 50 MG Tab PO SCH (20:50)
[2020-12-24] MEDS: Enoxaparin 60 MG/0.6 ML Syringe SUBCUT SCH ×2 (06:18→18:11)
--- NOTE | 2020-12-24 07:18 | PCM.PN ---
- General Info Date of Service: 12/24/20 Admission Dx/Problem (Free Text): Admission Diagnosis/Problem Admission Diagnosis/Problem Pneumonia, post COVID-19 Subjective Update: In to see Tomas. He is sitting on the edge of the bed eating breakfast. He reports he feels much better. He is off of oxygen at the moment. He has been requiring 2L with activity. He will receive his last dose of IV abx tonight. Hopeful for discharge tomorrow pending continued improvement. Functional Status: Reports: Pain Controlled, Tolerating Diet, Ambulating, Urinating, Incentive Spirometry, Other (Acapella ). Denies: New Symptoms - Review of Systems General: Reports: Weakness (improving ). Denies: Fever, Fatigue, Malaise, Chills HEENT: Reports: No Symptoms. Denies: Headaches, Sore Throat Pulmonary: Reports: Shortness of Breath (improved), Cough (improved), Sputum. Denies: Pleuritic Chest Pain, Wheezing Cardiovascular: Reports: No Symptoms, Dyspnea on Exertion (improved ). Denies: Chest Pain, Palpitations, Edema Gastrointestinal: Reports: No Symptoms. Denies: Abdominal Pain, Constipation, Diarrhea, Nausea, Vomiting Genitourinary: Reports: No Symptoms. Denies: Pain Musculoskeletal: Reports: No Symptoms Skin: Reports: No Symptoms. Denies: Cyanosis Neurological: Reports: No Symptoms. Denies: Confusion, Difficulty Walking, Gait Disturbance Psychiatric: Reports: No Symptoms - Patient Data Vitals - Most Recent: Last Vital Signs Temp 97.5 F 12/24/20 03:45 Pulse 53 L 12/24/20 03:45 Resp 16 12/24/20 03:45 BP 159/91 H 12/24/20 03:45 Pulse Ox 95 12/24/20 03:45 Weight - Most Recent: 214 lb I&O - Last 24 Hours: Intake & Output 12/23/20 12/24/20 12/24/20 22:59 06:59 14:59 Intake Total 1200 800 Output Total 3 Balance 1200 797 Lab Results Last 24 Hours: Laboratory Results - last 24 hr 12/23/20 12/23/20 12/23/20 Range/Units 06:15 11:39 15:07 POC Glucose 111 H 109 (83-110) mg/dL SARS-CoV-2 RNA (BEAU) Positive H (NEGATIVE) 12/23/20 12/23/20 Range/Units 17:24 20:49 POC Glucose 136 H 258 H (83-110) mg/dL SARS-CoV-2 RNA (BEAU) (NEGATIVE) Med Orders - Current: Current Medications Acetaminophen (Tylenol) 650 mg PO Q4H PRN PRN Reason: Pain (Mild 1-3)/fever Albuterol (Proventil Hfa) 0 gm INH Q2H PRN PRN Reason: SOB/Wheezing Buspirone HCl (Buspar) 15 mg PO TID [facility] Last Admin: 12/23/20 20:50 Dose: 15 mg Documented by: Cholecalciferol (Vitamin D3) 5,000 unit PO DAILY [facility] Last Admin: 12/23/20 08:58 Dose: 5,000 unit Documented by: Citalopram Hydrobromide (Celexa) 40 mg PO DAILY [facility] Last Admin: 12/23/20 08:57 Dose: 40 mg Documented by: Dexamethasone (Dexamethasone) 6 mg PO DAILY [facility] Stop: 12/29/20 09:01 Last Admin: 12/23/20 08:57 Dose: 6 mg Documented by: Enoxaparin Sodium (Lovenox) 50 mg SUBCUT Q12H [facility] Last Admin: 12/24/20 06:18 Dose: 50 mg Documented by: Famotidine (Pepcid) 20 mg PO BID [facility] Last Admin: 12/23/20 20:50 Dose: 20 mg Documented by: Guaifenesin (Mucinex) 600 mg PO BID [facility] Last Admin: 12/23/20 20:50 Dose: 600 mg Documented by: Ceftriaxone Sodium 2 gm/ (Sodium Chloride) 100 mls @ 200 mls/hr IV Q24H [facility] Stop: 12/24/20 16:29 Last Admin: 12/23/20 16:18 Dose: 200 mls/hr Documented by: Insulin Human Lispro (Humalog) 0 unit SUBCUT QIDACANDBED [facility]; Protocol Last Admin: 12/24/20 06:30 Dose: Not Given Documented by: Losartan Potassium (Cozaar) 50 mg PO DAILY [facility] Last Admin: 12/23/20 08:58 Dose: 50 mg Documented by: Ondansetron HCl (Zofran) 4 mg IV Q6H PRN PRN Reason: Nausea/Vomiting Sodium Chloride (Saline Flush) 10 ml FLUSH ASDIRECTED PRN PRN Reason: Keep Vein Open Last Admin: 12/20/20 11:42 Dose: 10 ml Documented by: Tiotropium [place] (Spiriva Respimat) 0 gm INH DAILY [facility] Last Admin: 12/23/20 09:14 Dose: 4 gm Documented by: Trazodone HCl (Trazodone) 100 mg PO BEDTIME [facility] Last Admin: 12/23/20 20:50 Dose: 100 mg Documented by: Zinc Sulfate (Zincate) 220 mg PO DAILY [facility] Last Admin: 12/23/20 08:57 Dose: 220 mg Documented by: Discontinued Medications Azithromycin (Zithromax) 500 mg PO DAILY [facility] Stop: 12/22/20 09:01 Last Admin: 12/22/20 09:35 Dose: 500 mg Documented by: Dexamethasone (Dexamethasone) 6 mg PO ONETIME ONE Stop: 12/20/20 13:28 Last Admin: 12/20/20 13:36 Dose: 6 mg Documented by: Enoxaparin Sodium (Lovenox) 40 mg SUBCUT DAILY [facility] Enoxaparin Sodium (Lovenox) 50 mg SUBCUT ONETIME ONE Stop: 12/20/20 16:01 Last Admin: 12/20/20 16:01 Dose: 50 mg Documented by: Sodium Chloride (Normal Saline) 1,000 mls @ 150 mls/hr IV NOW STA Stop: 12/20/20 19:02 Last Infusion: 12/20/20 13:35 Dose: 75 mls/hr Documented by: Sodium Chloride (Normal Saline) 100 mls @ 75 mls/hr IV ASDIRECTED [facility] Last Admin: 12/20/20 13:00 Dose: 75 mls/hr Documented by: Ceftriaxone Sodium 2 gm/ (Sodium Chloride) 100 mls @ 200 mls/hr IV Q24H [facility] Stop: 12/24/20 14:59 Last Admin: 12/20/20 17:46 Dose: Not Given Documented by: Iopamidol (Isovue-370 (76%)) 100 ml IVPUSH ONETIME ONE Stop: 12/20/20 12:59 Last Admin: 12/20/20 12:59 Dose: 100 ml Documented by: Non-Formulary Medication (Escitalopram) 20 mg PO DAILY [facility] Non-Formulary Medication (Tiotropium) 18 mcg INH DAILY [facility] Non-Formulary Medication (Trazodone) 100 mg PO BEDTIME MARK Sodium Chloride (Saline Flush) 10 ml FLUSH ONETIME PRN PRN Reason: IV FLUSH Last Admin: 12/20/20 12:59 Dose: 10 ml Documented by: - Exam Quality Assessment: DVT Prophylaxis General: Alert, Oriented, Cooperative, No Acute Distress HEENT: Pupils Equal, Pupils Reactive, Mucous Membr. Moist/[place] Neck: Supple, Trachea Midline Lungs: Normal Respiratory Effort, Decreased Breath Sounds, Rhonchi (minimal ). No: Wheezing Cardiovascular: Regular Rhythm, Bradycardia GI/Abdominal Exam: Normal Bowel Sounds, Soft, Non-Tender, No Distention (Male) Exam: Deferred Back Exam: Normal Inspection, Full Range of Motion Extremities: Normal Inspection, Normal Range of Motion, Non-Tender, No Pedal Edema, Normal Capillary Refill Skin: Warm, Dry, Intact Neurological: No New Focal Deficit Psy/Mental Status: Alert, Normal Affect, Normal Mood Sepsis Event Note - Evaluation Sepsis Screening Result: No Definite Risk - Focused Exam Vital Signs: Vital Signs Temp Pulse Resp BP Pulse Ox 12/24/20 03:45 97.5 F 53 L 16 159/91 H 95 12/23/20 23:06 97.5 F 56 L 16 159/98 H 90 L - Problem List & Annotations (1) Elevated d-dimer SNOMED Code(s): 752595873 Code(s): R79.89 - OTHER SPECIFIED ABNORMAL FINDINGS OF BLOOD CHEMISTRY Status: Acute Priority: High Current Visit: Yes (2) Hypoxia SNOMED Code(s): 213824532 Code(s): R09.02 - HYPOXEMIA Status: Acute Priority: High Current Visit: Yes (3) CKD (chronic kidney disease) stage 3, GFR 30-59 ml/min SNOMED Code(s): 957694740 Code(s): N18.30 - CHRONIC KIDNEY DISEASE, STAGE 3 UNSPECIFIED Status: Chronic Priority: High Current Visit: Yes Qualifiers: Chronic kidney disease stage 3 subtype: stage 3b (GFR 30-44) Qualified Code(s): N18.32 - Chronic kidney disease, stage 3b (4) Post-acute COVID-19 syndrome SNOMED Code(s): 067719335, 370679376293600802 Code(s): B94.8 - SEQUELAE OF OTH INFECTIOUS AND PARASITIC DISEASES Status: Chronic Priority: High Current Visit: Yes (5) History of COVID-19 SNOMED Code(s): 283730079427875169, 256820065892197206 Code(s): Z86.16 - PERSONAL HISTORY OF COVID-19 Status: Chronic Priority: Medium Current Visit: Yes (6) HLD (hyperlipidemia) SNOMED Code(s): 79339175 Code(s): E78.5 - HYPERLIPIDEMIA, UNSPECIFIED Status: Acute Current Visit: Yes (7) HTN (hypertension) SNOMED Code(s): 35006814 Code(s): I10 - ESSENTIAL (PRIMARY) HYPERTENSION Status: Acute Current Visit: Yes (8) Chronic lumbar pain SNOMED Code(s): 959563123 Code(s): M54.5 - LOW BACK PAIN; G89.29 - OTHER CHRONIC PAIN Status: Acute Current Visit: Yes (9) Prediabetes SNOMED Code(s): 495631647 Code(s): R73.03 - PREDIABETES Status: Chronic Priority: High Current Visit: Yes (10) History of heart artery stent SNOMED Code(s): 209897319, 979591346 Code(s): Z95.5 - PRESENCE OF CORONARY ANGIOPLASTY IMPLANT AND GRAFT Status: Acute Current Visit: Yes (11) Hypoalbuminemia SNOMED Code(s): 745734417 Code(s): E88.09 - OTH DISORDERS OF PLASMA-PROTEIN METABOLISM, NEC Status: Acute Current Visit: Yes (12) Former smoker SNOMED Code(s): 1327929 Code(s): Z87.891 - PERSONAL HISTORY OF NICOTINE DEPENDENCE Status: Acute Current Visit: Yes (13) History of lung cancer SNOMED Code(s): 485803456, 375317426 Code(s): Z85.118 - PERSONAL HISTORY OF MALIGNANT NEOPLASM OF BRONCHUS AND LUNG Status: Acute Priority: High Current Visit: Yes (14) Neutropenia SNOMED Code(s): 405753207 Code(s): D70.9 - NEUTROPENIA, UNSPECIFIED Status: Acute Priority: Medium Current Visit: Yes Qualifiers: Neutropenia type: due to infection Qualified Code(s): D70.3 - Neutropenia due to infection - Problem List Review Problem List Initiated/Reviewed/Updated: Yes - Assessment Assessment:: Assessment - Day of admission 12/20/20 * 75 yo male who presents to our ED with complaints of COVID-19 symptoms for over 3 weeks * Started feeling ill on 12/01/20 and COVID-19 positive on 12/06/20 * Reports SOB, cough, sputum, excessive sputum, fatigue, fever, chills, nausea, decreased appetite and generalized myalgias * History of left lung cancer in remission, HLD, HTN, Cardiac stents, lumbar pain, insomnia, pre-diabetes, former smoker * In ED oxygen found to be 81% on room air; Up to 92% with 2L * 12-Lead EKG shows NSR at 72 BPM with no ectopy * CXR in ED: " Increased density within the left lung base as well as diffuse increased right-sided lung markings. Findings presumably represent diffuse change from Covid pneumonia." * Labs in ED: * WBC 6.01 * Hemoglobin 10.8 * Platelets 218,000. * Neutrophils 81.8% * D-dimer 4.31 * Sodium 139 * Potassium 4.8 * Carbon dioxide 28 * Anion gap 13.8 * BUN 19, creatinine 1.6, GFR 42 (appears to be at baseline from prior visits) * Glucose 134 * Bilirubin 0.5 * AST 10, ALT 25, alkaline phosphatase 58 * Troponin less than 0.017 * CRP 12.2 * Albumin 2.7 * BNP 547 * UA negative * ABG: Right radial pH 7.42, PCO2 42.7, PO2 63.0, HCO3 27.2, O2 saturation 90.8, base excess 2.9, A-a gradient 83, on 2L via NC * CTA obtained in ED: * 1. No findings of pulmonary embolism * 2. Diffuse interstitial change within both lungs with more focal density with left upper lung as well as within both lung bases. Particular on the left side. Findings most likely represent diffuse Covid pneumonia. * 3. Small left-sided pleural effusion. * Subsequently admitted to the hospital floor on telemetry for management of post Covid syndrome and hypoxia. 12/21/2020 * Reports improved respiratory status * Reports improved appetite * Continues to require 2L oxygen by NC * Ambulating around room, utilizing IS and acapella, proning when able (minimal tolerance) * Labs: * WBC 1.92 * Hgb 11.9 * Plt 202 * Neutrophils 1.51 * Sodium 143 * Anion gap 13.8 * BUN 21 * Creatinine 1.4 * GFR 49 * Glucose 145 * Magnesium 2.6 * AST 16, ALT 26, Alk Phos 64 * (Vitamin D from yesterday 25.9) * (A1C from yesterday 7.0) * Continue current treatment plan 12/22/2020 The patient is a 75-year-old gentleman who is doing much better as compared to admission. The patient is currently on ceftriaxone and is will be continued for his post Covid pneumonia. The patient will also be kept on the dexamethasone. The patient also had hemoglobin A1c completed at 7.0% and the patient will need to follow-up with his primary care physician as an outpatient for further treatment of diabetes. The patient we kept on insulin sliding scale and kept on a carb constant diet. The patient will need to have Metformin on discharge. The patient has been encouraged to ambulate. Continue with use of incentive spirometer and Acapella. He will also likely be appropriate for discharge in 1 to 2 days. Repeat laboratory studies have been ordered for the morning. 12/23/2020 Patient is 18 days out of his Covid diagnosis and 23 days post his first symptoms. He is significantly improved with decreasing O2 intake and patient states he is trying to exercise in the room. He would get significant improvement if we could take him off of strict isolation, therefore I will check a Covid PCR today and if it is negative we will take him off of precautions. If it is positive we will continue them for the full 20 days post diagnosis, but most likely this is overly protective. Patient albumin is starting to improve which is also a good sign. Unfortunately, dexamethasone does make his treating his diabetes more difficult. He continues to be wheezy and he does have history of lung cancer with his last chemo in October. This too makes both his Covid more complicated and also the fact that he has an underlying lung disease. Hopefully will be able to wean him down or off of his oxygen before discharge, but if not we will qualify [facility] I agree with Dr. Lee above that he will likely need Metformin on discharge. 12/24/2020 Continues to improve and reports he feels much better. Has been utilizing IS and acapella frequently. Has been ambulating around room. Requiring 2L oxygen with activity but off at rest. Saturations have been variable overnight. COVID PCR returned positive. tomorrow will be 20 days post diagnosis. Labs were not drawn today. He continues to have a cough and SOB but all are improving. He will receive his last dose of Rocephin today. Hopeful for discharge tomorrow pending continued improvement. Will repeat labs tomorrow prior to discharge. - Plan Plan:: Post-acute COVID-19 syndrome Elevated d-dimer Hypoxia History of COVID-19 Former smoker History of lung cancer * O2 as needed to keep saturations 88-95% * IS/Acapella * RT consultation * PRN albuterol * Continue home respiratory meds * Encourage proning and ambulating in room * Monitor labs * 0.5mg/kg BID Lovenox for elevated d-dimer * Airborne/contact isolation * Dexamethasone 6mg daily - day 04/01 * Will hold off on remdesivir as patient is outside of window * Access port in left chest * Completed Azithromycin 500mg daily * Rocephin 2gm daily - Day 03/27 * Mucinex 600mg BID * Supplement vitamin D and zinc * Telemetry/continuous pulse oximetry Hypoalbuminemia * Training Lead consult Prediabetes * QID AC and Bedtime glucose checks * Low intensity sliding scale insulin * Consistent carbohydrate diet * Training Lead consultation CKD (chronic kidney disease) stage 3, GFR 30-59 ml/min HLD (hyperlipidemia) HTN (hypertension) Chronic lumbar pain History of heart artery stent * Telemetry * Review/reconcile home medications Code status: Full Code PCP: Martha Hartman NP with the [facility] Prophylaxis: Lovenox Social: Patient resides alone in a house in [place]. He has family in the area Disposition: Patient admitted inpatient for management of post-COVID symptoms, Hypoxia Prognosis: Good, although patient is former smoker and has history of lung cancer. May require oxygen at discharge.
[2020-12-24] MEDS: Famotidine 20 MG Tab PO SCH ×2 (08:30→21:43)
[2020-12-24] MEDS: Cholecalciferol (Vitamin D3) 5,000 UNIT Cap PO SCH (08:30)
[2020-12-24] MEDS: busPIRone 15 MG Tab PO SCH ×3 (08:31→21:44)
[2020-12-24] MEDS: Losartan 50 MG Tab PO SCH (08:31)
[2020-12-24] MEDS: Citalopram 20 MG Tab PO SCH (08:31)
[2020-12-24] MEDS: guaiFENesin 600 MG Tab.ER PO SCH ×2 (08:31→21:44)
[2020-12-24] MEDS: Dexamethasone 4 MG Tab PO SCH (08:32)
[2020-12-24] MEDS: Zinc Sulfate 220 MG Cap PO SCH (08:32)
[2020-12-24] MEDS: Tiotropium Bromide 4 GM Inhalation Spray (2.5mcg/1 dose; 10 doses) INH SCH (08:47)
[2020-12-24] MEDS: cefTRIAXone 2 GM in Sodium Chloride 0.9% 100 ML IV SCH (15:51)
[2020-12-24] MEDS: traZODone 50 MG Tab PO SCH (21:44)
[2020-12-25] MEDS: Enoxaparin 60 MG/0.6 ML Syringe SUBCUT SCH (07:01)
[2020-12-25] MEDS: guaiFENesin 600 MG Tab.ER PO SCH (08:03)
[2020-12-25] MEDS: busPIRone 15 MG Tab PO SCH (08:03)
[2020-12-25] MEDS: Zinc Sulfate 220 MG Cap PO SCH (08:03)
[2020-12-25] MEDS: Citalopram 20 MG Tab PO SCH (08:03)
[2020-12-25] MEDS: Famotidine 20 MG Tab PO SCH (08:03)
[2020-12-25] MEDS: Losartan 50 MG Tab PO SCH (08:03)
[2020-12-25] MEDS: Cholecalciferol (Vitamin D3) 5,000 UNIT Cap PO SCH (08:03)
[2020-12-25 08:04] VITALS: BP 137/83
[2020-12-25] MEDS: Dexamethasone 4 MG Tab PO SCH (08:04)
[2020-12-25 08:06] VITALS: PULSE 50
[2020-12-25] MEDS: Tiotropium Bromide 4 GM Inhalation Spray (2.5mcg/1 dose; 10 doses) INH SCH (08:27)
--- NOTE | 2020-12-25 08:47 | PCM.DCSUM1 ---
Discharge Summary - Hospital Course HPI Initial Comments: This is a 75-year-old male who presents to our ED on 12/20/2020 with complaints of 3 weeks of Covid symptoms that are not getting any better. He reports he started to feel ill on 01 December and he has been feeling about the same or worse since then. Reports cough, excessive mucus production, body aches, headaches, fatigue, fever, nausea, notes of breath, and decreased appetite. He reports he was tested for Covid on December 06 and this returned positive. Ports he does have a pulse oximeter at home and his saturations around 90%. He does have a history of left-sided lung cancer for which he completed therapy about 1 week ago. He reports he was seeing Dr. Carr, oncology, and that his mass has resolved. Plan is to obtain another CT scan in January. Reports he wears oxygen at night but is never required oxygen during the day. Denies any chest pain but reports when he does have coughing fits he will have left-sided rib pain. Denies any vomiting or diarrhea. In the ED triage he was noted to have saturations of 81% on room air. He was placed on 2 L of oxygen and this increases saturation to 92%. Blood pressure is 135/78. Pulse 84. Temperature 97.7. Respiratory rate 12. Twelve-lead EKG is obtained showing a sinus rhythm at 72 bpm with no ischemic changes. In the ED labs were obtained. WBC was normal at 6.01. Hemoglobin 10.8. Platelets 218,000. Neutrophils are elevated at 81.8%. D-dimer was obtained and was quite high at 4.31. Sodium was 139. Potassium 4.8. Chloride 102. Carbon dioxide 28. Anion gap 13.8. BUN was 19. Creatinine 1.6. GFR was 42. Glucose 134. Calcium was 8.7. Bilirubin 0.5. AST was 10, ALT 25, alkaline phosphatase 58. Troponin was less than 0.017. CRP was 12.2. Protein was 6.8. Albumin was low at 2.7. UA was negative. ABG was obtained in the right radial showing a pH of 7.42. PCO2 of 42.7. PO2 of 63.0. HCO3 of 27.2. O2 saturation 90.8. Base excess of 2.9. A-a gradient was 83. This was obtained while on 2 L of oxygen via nasal cannula. proBNP was 547. He was started on IV fluids at 150 mils an hour and this was decreased to 75 mils an hour. He was given 6 mg of dexamethasone. Chest x-ray is obtained and interpreted by Dr. Abernathy as "1. Increased density within the lung base as well as diffusely increased right- sided lung markings. Findings presumably represent diffuse change from Covid pneumonia." Given his elevated D-dimer CT angiogram of the chest was obtained and interpreted by Dr. Abernathy as "1. No findings of pulmonary embolism. 2. Diffuse interstitial change within both lungs with more focal density within the left upper lung as well as within both lung bases particularly on the left side. Findings most likely represent diffuse Covid pneumonia. 3. Small left-sided pleural effusion." He carries a history of HLD, HTN, prior cardiac stents, chronic lumbar back pain, insomnia, prediabetes, lung cancer. He is a former smoker who quit in 2019. His PCP is Martha [facility]man NP with [facility]. He is a full code. He subsequently admitted to the medical floor on telemetry for management of his post Covid syndrome and hypoxia. Diagnosis: Stroke: No - Discharge Data Discharge Date: 12/25/20 (Admit date: 12/20/20) Discharge Disposition: Home, Self-Care 01 Condition: Good - Referral to Home Health Primary Care Physician: Martha Hartman NP - Discharge Diagnosis/Problem(s) (1) Elevated d-dimer SNOMED Code(s): 174825603 ICD Code: R79.89 - OTHER SPECIFIED ABNORMAL FINDINGS OF BLOOD CHEMISTRY Status: Acute Priority: High (2) Hypoxia SNOMED Code(s): 968841413 ICD Code: R09.02 - HYPOXEMIA Status: Acute Priority: High (3) CKD (chronic kidney disease) stage 3, GFR 30-59 ml/min SNOMED Code(s): 743447760 ICD Code: N18.30 - CHRONIC KIDNEY DISEASE, STAGE 3 UNSPECIFIED Status: Chronic Priority: High Qualifiers: Chronic kidney disease stage 3 subtype: stage 3b (GFR 30-44) Qualified Code(s): N18.32 - Chronic kidney disease, stage 3b (4) Post-acute COVID-19 syndrome SNOMED Code(s): 062117998, 898834982684360593 ICD Code: B94.8 - SEQUELAE OF OTH INFECTIOUS AND PARASITIC DISEASES Status: Chronic Priority: High (5) History of COVID-19 SNOMED Code(s): 838458697473870552, 055097919607905895 ICD Code: Z86.16 - PERSONAL HISTORY OF COVID-19 Status: Chronic Priority: Medium (6) HLD (hyperlipidemia) SNOMED Code(s): 49672924 ICD Code: E78.5 - HYPERLIPIDEMIA, UNSPECIFIED Status: Acute (7) HTN (hypertension) SNOMED Code(s): 20477250 ICD Code: I10 - ESSENTIAL (PRIMARY) HYPERTENSION Status: Acute (8) Chronic lumbar pain SNOMED Code(s): 209237222 ICD Code: M54.5 - LOW BACK PAIN; G89.29 - OTHER CHRONIC PAIN Status: Acute (9) Prediabetes SNOMED Code(s): 851567795 ICD Code: R73.03 - PREDIABETES Status: Chronic Priority: High (10) History of heart artery stent SNOMED Code(s): 079045392, 001390841 ICD Code: Z95.5 - PRESENCE OF CORONARY ANGIOPLASTY IMPLANT AND GRAFT Status: Acute (11) Hypoalbuminemia SNOMED Code(s): 850641399 ICD Code: E88.09 - OTH DISORDERS OF PLASMA-PROTEIN METABOLISM, NEC Status: Acute (12) Former smoker SNOMED Code(s): 1983602 ICD Code: Z87.891 - PERSONAL HISTORY OF NICOTINE DEPENDENCE Status: Acute (13) History of lung cancer SNOMED Code(s): 554501942, 982892645 ICD Code: Z85.118 - PERSONAL HISTORY OF MALIGNANT NEOPLASM OF BRONCHUS AND LUNG Status: Acute Priority: High (14) Neutropenia SNOMED Code(s): 732760018 ICD Code: D70.9 - NEUTROPENIA, UNSPECIFIED Status: Resolved Priority: Medium Qualifiers: Neutropenia type: due to infection Qualified Code(s): D70.3 - Neutropenia due to infection - Patient Summary/Data Consults: Consultations 12/20/20 14:18 Consult to Spiritual Care [CONS] Routine Respiratory Care Assess and Treatment [CONS] Routine 12/20/20 15:05 Consult to Endoscopy Support Specialist [CONS] Routine Labs Pending at D/C: None Recommended Follow-up Testing/Procedures: Follow-up with primary care provider within 7-10 days of discharge, sooner if needed. -Recommend repeat CBC, CMP, Magnesium and CXR at that appointment. Hospital Course: Tomas is a 75-year-old male who presented to ED on 12/20/2020 with COVID-19 symptoms which she reports have been present for over 3 weeks. He reports started feeling ill on 12/01/2020 and tested positive for Covid on 12/06/2020. He ordered shortness of breath, cough, excessive sputum, fatigue, fever, chills, nausea, decreased appetite, and generalized myalgias. He has a history of left lung cancer in remission, HLD, hypertension, cardiac stents, lumbar pain, insomnia, prediabetes, and a former smoker. In the ED was found to have oxygen saturation of 81% on room air which improved to 92% on 2 L. Chest x-ray in the ED showed increased density within the left lung base as well as diffuse incr eased right-sided lung markings which were thought to represent diffuse change from Covid pneumonia. D-dimer was 4.31 so CTA was obtained no findings of pulmonary embolism, however there is interstitial change within both lungs with more focal density within the left upper lung as well as both lung bases particularly on the left side. Is felt these represent changes from Covid pneumonia. Small left-sided pleural effusion was also noted. He was outside the treatment window for remdesivir but he was started on 6 mg p.o. dexamethasone daily. He received this for a total of 6 days prior to being discharged. At his worst he was requiring 2 L of oxygen and this was able to be weaned down prior to discharge. He will be sent home on 0 L at rest and 2 L with activity. A1c was obtained and was 7.0. Patient was receiving minimal sliding scale insulin while here due to the steroid and his Metformin being held. Metformin will continue at discharge and he will not require any sliding scale insulin. Vitamin D was obtained and was low at 25.9. Patient was supplemented with 5000 units daily. Patient does report that he just started taking p.o. vitamin D supplementation prior to being hospitalized and he was instructed to continue this. Will send prescription for home supplementation as well. He was started on zinc supplementation and this will continue to discharge as well. Again patient reports that he just started taking this prior to admission and he will be sent a prescription at discharge as well. Given 5 days of IV Rocephin and 3 days of azithromycin. He completed this treatment and will not get any antibiotics on discharge. He has been utilizing his incentive spirometer and Acapella frequently and does note that his Acapella leads to a productive cough after use. He was instructed to continue to utilize these for 1 to 2 weeks after discharge until symptoms resolve. He was getting Mucinex twice daily and he does take this at home already. He had been up ambulating around the room but due to isolation precautions he was not able to ambulate very far. His removed off of isolation today as he completed his 20 days since initial onset of symptoms. Prior to discharge he reports that he feels much better and all symptoms have improved. He continues to have a productive cough and be mildly short of breath with ambulation. His D-dimer did trend down while here and he will not require any extra anticoagulants at discharge. He did see our dietitian. He remained bradycardic through much of his stay but he reports this is baseline for him. He will be discharged home today. He was instructed to follow-up with his primary care within 7 to 10 days of discharge, sooner if needed. All home medications were continued and he was encouraged to continue utilizing his incentive spirometer and Acapella as mentioned prior. He was encouraged to continue to stay active. He was sent a prescription for vitamin D and zinc supplementation. Discharge today with home oxygen as noted. - Patient Instructions Diet: Usual Diet as Tolerated Activity: As Tolerated Driving: Do Not Drive Showering/Bathing: May Shower Notify Provider of: Fever, Increased Pain, Nausea and/or Vomiting Other/Special Instructions: Follow-up with primary care provider within 7-10 days of discharge, sooner if needed. Continue to wear your oxygen with activity at 2L. No need for oxygen at rest. Continue to utilize your incentive spirometer (clear/blue device you inhale through) and acapella (green tube you blow through) for 1-2 more weeks or until symptoms develop. You will likely recieve a follow-up call from a case assistant for the [facility]. Follow their directions if you are told otherwise. Continue to walk around frequently. Resume home medications as directed. You completed your COVID-19 treatment while here. Should symtpoms return or worsen contact your primary care provider or return to the Emergency Department. - Discharge Plan *PRESCRIPTION DRUG MONITORING PROGRAM REVIEWED*: No *COPY OF PRESCRIPTION DRUG MONITORING REPORT IN PATIENT KISHA: No Prescriptions/Med Rec: Cholecalciferol (Vitamin D3) [Vitamin D3] 5,000 unit PO DAILY #20 cap Zinc Sulfate [Zincate] 220 mg PO DAILY #20 cap Home Medications: Home Meds busPIRone HCl [Buspirone HCl] 15 mg PO TID 01/10/15 [History] traZODone 100 mg PO BEDTIME 01/10/15 [History] Albuterol Sulfate [Proair Hfa] 2 puff IH Q4HR PRN 10/16/15 [History] Escitalopram [Lexapro] 20 mg PO DAILY 10/16/15 [History] Tiotropium [Spiriva HandiHaler] 18 mcg INH DAILY 10/16/15 [History] atorvaSTATin [Lipitor] 80 mg PO BEDTIME 10/16/15 [History] Fluticasone Propionate [24 Hour Allergy] 2 spray NS DAILY 12/20/20 [History] Hydrocortisone [Hydrocortisone 2.5% Crm] 1 gm TOP BID PRN 12/20/20 [History] Losartan [Cozaar] 50 mg PO DAILY 12/20/20 [History] guaiFENesin [Guaifenesin] 600 mg PO DAILY 12/20/20 [History] metFORMIN [Glucophage XR] 500 mg PO DAILY 12/20/20 [History] Cholecalciferol (Vitamin D3) [Vitamin D3] 5,000 unit PO DAILY #20 cap 12/25/20 [Rx] Zinc Sulfate [Zincate] 220 mg PO DAILY #20 cap 12/25/20 [Rx] Oxygen Therapy Mode: Room Air Oxygen Flow Rate (L/min): 2 (2L with activity ) Maintain SPO2% less than: 88 Patient Handouts: How to Use an Incentive Spirometer, 10 Things You Can Do to Manage Your COVID-19 Symptoms at Home - CDC, Sepsis, Diagnosis, Adult, Prediabetes Eating Plan Forms: ED Department Discharge Referrals: Martha Hartman NP [Primary Care Provider] - 01/04/21 9:00 am (please attend the scheduled hospital follow up appointment) - Discharge Summary/Plan Comment DC Time >30 min.: Yes (45 mins ) - General Info Date of Service: 12/25/20 Admission Dx/Problem (Free Text: Admission Diagnosis/Problem Admission Diagnosis/Problem Pneumonia, post COVID-19 Functional Status: Reports: Pain Controlled, Tolerating Diet, Ambulating, Urinating, Incentive Spirometry, Other (Acapella ). Denies: New Symptoms - Review of Systems General: Reports: No Symptoms. Denies: Fever, Weakness, Fatigue, Malaise, Chills HEENT: Reports: No Symptoms. Denies: Headaches, Visual Changes Pulmonary: Reports: Cough, Sputum. Denies: Shortness of Breath, Pleuritic Chest Pain, Wheezing Cardiovascular: Reports: No Symptoms, Dyspnea on Exertion (greatly improved ). Denies: Chest Pain, Palpitations Gastrointestinal: Reports: No Symptoms. Denies: Abdominal Pain, Constipation, Diarrhea, Nausea, Vomiting Genitourinary: Reports: No Symptoms. Denies: Pain Musculoskeletal: Reports: No Symptoms Skin: Reports: No Symptoms. Denies: Cyanosis Neurological: Reports: No Symptoms. Denies: Confusion, Difficulty Walking, Weakness, Gait Disturbance Psychiatric: Reports: No Symptoms - Patient Data Vitals - Most Recent: Last Vital Signs Temp 97.7 F 12/25/20 07:53 Pulse 50 L 12/25/20 07:53 Resp 18 12/25/20 07:53 BP 137/83 12/25/20 08:03 Pulse Ox 92 L 12/25/20 08:28 Weight - Most Recent: 213 lb 3.2 oz I&O - Last 24 hours: Intake & Output 12/24/20 12/25/20 12/25/20 22:59 06:59 14:59 Intake Total 1300 400 Balance 1300 400 Lab Results - Last 24 hrs: Laboratory Results - last 24 hr 12/24/20 12/24/20 12/24/20 Range/Units 06:06 11:04 17:01 WBC (4.23-9.07) K/mm3 RBC (4.63-6.08) M/mm3 Hgb (13.7-17.5) gm/dl Hct (40.1-51.0) % MCV (79.0-92.2) fl MCH (25.7-32.2) pg MCHC (32.2-35.5) g/dl RDW Std Deviation (35.1-43.9) fL Plt Count (163-337) K/mm3 MPV (9.4-12.3) fl Neut % (Auto) (34.0-67.9) % Lymph % (Auto) (21.8-53.1) % [place] % (Auto) (5.3-12.2) % Eos % (Auto) (0.8-7.0) Baso % (Auto) (0.1-1.2) % Neut # (Auto) (1.78-5.38) K/mm3 Lymph # (Auto) (1.32-3.57) K/mm3 [place] # (Auto) (0.30-0.82) K/mm3 Eos # (Auto) (0.04-0.54) K/mm3 Baso # (Auto) (0.01-0.08) K/mm3 Sodium (136-145) mEq/L Potassium (3.5-5.1) mEq/L Chloride (98-107) mEq/L Carbon Dioxide (21-32) mEq/L Anion Gap (5-15) BUN (7-18) mg/dL Creatinine (0.7-1.3) mg/dL Est Cr Clr Drug Dosing mL/min Estimated GFR (MDRD) (>60) mL/min BUN/Creatinine Ratio (14-18) Glucose (83-115) mg/dL POC Glucose 100 138 H 145 H (83-110) mg/dL Calcium (8.5-10.1) mg/dL Magnesium (1.8-2.4) mg/dl 12/24/20 12/25/20 12/25/20 Range/Units 21:35 05:19 05:19 WBC 4.41 (4.23-9.07) K/mm3 RBC 4.14 L (4.63-6.08) M/mm3 Hgb 11.8 L (13.7-17.5) gm/dl Hct 38.2 L (40.1-51.0) % MCV 92.3 H (79.0-92.2) fl MCH 28.5 (25.7-32.2) pg MCHC 30.9 L (32.2-35.5) g/dl RDW Std Deviation 43.8 (35.1-43.9) fL Plt Count 223 (163-337) K/mm3 MPV 10.6 (9.4-12.3) fl Neut % (Auto) 74.3 H (34.0-67.9) % Lymph % (Auto) 10.4 L (21.8-53.1) % [place] % (Auto) 13.2 H (5.3-12.2) % Eos % (Auto) 0 L (0.8-7.0) Baso % (Auto) 0.5 (0.1-1.2) % Neut # (Auto) 3.28 (1.78-5.38) K/mm3 Lymph # (Auto) 0.46 L (1.32-3.57) K/mm3 [place] # (Auto) 0.58 (0.30-0.82) K/mm3 Eos # (Auto) 0.00 L (0.04-0.54) K/mm3 Baso # (Auto) 0.02 (0.01-0.08) K/mm3 Sodium 143 (136-145) mEq/L Potassium 4.7 (3.5-5.1) mEq/L Chloride 105 (98-107) mEq/L Carbon Dioxide 27 (21-32) mEq/L Anion Gap 15.7 H (5-15) BUN 36 H (7-18) mg/dL Creatinine 1.3 (0.7-1.3) mg/dL Est Cr Clr Drug Dosing 48.34 mL/min Estimated GFR (MDRD) 54 (>60) mL/min BUN/Creatinine Ratio 27.7 H (14-18) Glucose 110 (83-115) mg/dL POC Glucose 169 H (83-110) mg/dL Calcium 9.0 (8.5-10.1) mg/dL Magnesium 2.3 (1.8-2.4) mg/dl 12/25/20 Range/Units 06:32 WBC (4.23-9.07) K/mm3 RBC (4.63-6.08) M/mm3 Hgb (13.7-17.5) gm/dl Hct (40.1-51.0) % MCV (79.0-92.2) fl MCH (25.7-32.2) pg MCHC (32.2-35.5) g/dl RDW Std Deviation (35.1-43.9) fL Plt Count (163-337) K/mm3 MPV (9.4-12.3) fl Neut % (Auto) (34.0-67.9) % Lymph % (Auto) (21.8-53.1) % [place] % (Auto) (5.3-12.2) % Eos % (Auto) (0.8-7.0) Baso % (Auto) (0.1-1.2) % Neut # (Auto) (1.78-5.38) K/mm3 Lymph # (Auto) (1.32-3.57) K/mm3 [place] # (Auto) (0.30-0.82) K/mm3 Eos # (Auto) (0.04-0.54) K/mm3 Baso # (Auto) (0.01-0.08) K/mm3 Sodium (136-145) mEq/L Potassium (3.5-5.1) mEq/L Chloride (98-107) mEq/L Carbon Dioxide (21-32) mEq/L Anion Gap (5-15) BUN (7-18) mg/dL Creatinine (0.7-1.3) mg/dL Est Cr Clr Drug Dosing mL/min Estimated GFR (MDRD) (>60) mL/min BUN/Creatinine Ratio (14-18) Glucose (83-115) mg/dL POC Glucose 103 (83-110) mg/dL Calcium (8.5-10.1) mg/dL Magnesium (1.8-2.4) mg/dl Med Orders - Current: Current Medications Acetaminophen (Tylenol) 650 mg PO Q4H PRN PRN Reason: Pain (Mild 1-3)/fever Albuterol (Proventil Hfa) 0 gm INH Q2H PRN PRN Reason: SOB/Wheezing Buspirone HCl (Buspar) 15 mg PO TID [facility] Last Admin: 12/25/20 08:03 Dose: 15 mg Documented by: Cholecalciferol (Vitamin D3) 5,000 unit PO DAILY [facility] Last Admin: 12/25/20 08:03 Dose: 5,000 unit Documented by: Citalopram Hydrobromide (Celexa) 40 mg PO DAILY [facility] Last Admin: 12/25/20 08:03 Dose: 40 mg Documented by: Dexamethasone (Dexamethasone) 6 mg PO DAILY [facility] Stop: 12/29/20 09:01 Last Admin: 12/25/20 08:04 Dose: 6 mg Documented by: Enoxaparin Sodium (Lovenox) 50 mg SUBCUT Q12H [facility] Last Admin: 12/25/20 07:01 Dose: 50 mg Documented by: Famotidine (Pepcid) 20 mg PO BID [facility] Last Admin: 12/25/20 08:03 Dose: 20 mg Documented by: Guaifenesin (Mucinex) 600 mg PO BID [facility] Last Admin: 12/25/20 08:03 Dose: 600 mg Documented by: Insulin Human Lispro (Humalog) 0 unit SUBCUT QIDACANDBED [facility]; Protocol Last Admin: 12/25/20 07:35 Dose: Not Given Documented by: Losartan Potassium (Cozaar) 50 mg PO DAILY [facility] Last Admin: 12/25/20 08:03 Dose: 50 mg Documented by: Ondansetron HCl (Zofran) 4 mg IV Q6H PRN PRN Reason: Nausea/Vomiting Sodium Chloride (Saline Flush) 10 ml FLUSH ASDIRECTED PRN PRN Reason: Keep Vein Open Last Admin: 12/20/20 11:42 Dose: 10 ml Documented by: Tiotropium [place] (Spiriva Respimat) 0 gm INH DAILY [facility] Last Admin: 12/25/20 08:27 Dose: 4 gm Documented by: Trazodone HCl (Trazodone) 100 mg PO BEDTIME [facility] Last Admin: 12/24/20 21:44 Dose: 100 mg Documented by: Zinc Sulfate (Zincate) 220 mg PO DAILY [facility] Last Admin: 12/25/20 08:03 Dose: 220 mg Documented by: Discontinued Medications Azithromycin (Zithromax) 500 mg PO DAILY [facility] Stop: 12/22/20 09:01 Last Admin: 12/22/20 09:35 Dose: 500 mg Documented by: Dexamethasone (Dexamethasone) 6 mg PO ONETIME ONE Stop: 12/20/20 13:28 Last Admin: 12/20/20 13:36 Dose: 6 mg Documented by: Enoxaparin Sodium (Lovenox) 40 mg SUBCUT DAILY [facility] Enoxaparin Sodium (Lovenox) 50 mg SUBCUT ONETIME ONE Stop: 12/20/20 16:01 Last Admin: 12/20/20 16:01 Dose: 50 mg Documented by: Sodium Chloride (Normal Saline) 1,000 mls @ 150 mls/hr IV NOW STA Stop: 12/20/20 19:02 Last Infusion: 12/20/20 13:35 Dose: 75 mls/hr Documented by: Sodium Chloride (Normal Saline) 100 mls @ 75 mls/hr IV ASDIRECTED [facility] Last Admin: 12/20/20 13:00 Dose: 75 mls/hr Documented by: Ceftriaxone Sodium 2 gm/ (Sodium Chloride) 100 mls @ 200 mls/hr IV Q24H [facility] Stop: 12/24/20 14:59 Last Admin: 12/20/20 17:46 Dose: Not Given Documented by: Ceftriaxone Sodium 2 gm/ (Sodium Chloride) 100 mls @ 200 mls/hr IV Q24H [facility] Stop: 12/24/20 16:29 Last Admin: 12/24/20 15:51 Dose: 200 mls/hr Documented by: Iopamidol (Isovue-370 (76%)) 100 ml IVPUSH ONETIME ONE Stop: 12/20/20 12:59 Last Admin: 12/20/20 12:59 Dose: 100 ml Documented by: Non-Formulary Medication (Escitalopram) 20 mg PO DAILY [facility] Non-Formulary Medication (Tiotropium) 18 mcg INH DAILY [facility] Non-Formulary Medication (Trazodone) 100 mg PO BEDTIME [facility] Sodium Chloride (Saline Flush) 10 ml FLUSH ONETIME PRN PRN Reason: IV FLUSH Last Admin: 12/20/20 12:59 Dose: 10 ml Documented by: - Exam Quality Assessment: Reports: DVT Prophylaxis. Denies: Supplemental Oxygen (wears 2 L with activity, none with rest - resting on exam ), Urine Catheter General: Reports: Alert, Oriented, Cooperative, No Acute Distress HEENT: Reports: Pupils Equal, Pupils Reactive, Mucous Membr. Moist/[place] Neck: Reports: Supple, Trachea Midline Lungs: Reports: Normal Respiratory Effort, Decreased Breath Sounds. Denies: Rhonchi, Wheezing Cardiovascular: Reports: Regular Rhythm, Bradycardia (chronic ) GI/Abdominal Exam: Normal Bowel Sounds, Soft, Non-Tender, No Distention (Male) Exam: Deferred Rectal (Males) Exam: Deferred Back Exam: Reports: Normal Inspection, Full Range of Motion Extremities: Normal Inspection, Normal Range of Motion, Non-Tender, No Pedal Edema, Normal Capillary Refill Skin: Reports: Warm, Dry, Intact Neurological: Reports: No New Focal Deficit Psy/Mental Status: Reports: Alert, Normal Affect, Normal Mood
== END 2020-12-25 10:49 | disposition home or self-care (01) | DRG 177 ==
LOC: JD.ED 11:10 → JD.MS 13:53
PROVIDERS: ADMIT Internal Medicine; ATTEND Internal Medicine
PROC: 8E0ZXY6 Isolation (ICD-10-PCS; principal; 2020-12-20)
DX: U07.1 COVID-19 (principal); J12.82 Pneumonia due to coronavirus disease 2019; E78.5 Hyperlipidemia, unspecified; E78.00 Pure hypercholesterolemia, unspecified; M54.5 Low back pain; I12.9 Hypertensive chronic kidney disease with stage 1 through stage 4 chronic kidney disease, or unspecified chronic kidney disease; M19.90 Unspecified osteoarthritis, unspecified site; G47.00 Insomnia, unspecified; L57.0 Actinic keratosis; R73.03 Prediabetes; F17.210 Nicotine dependence, cigarettes, uncomplicated; Z92.21 Personal history of antineoplastic chemotherapy; Z87.891 Personal history of nicotine dependence; Z88.8 Allergy status to other drugs, medicaments and biological substances; Z79.84 Long term (current) use of oral hypoglycemic drugs; Z79.899 Other long term (current) drug therapy; R79.89 Other specified abnormal findings of blood chemistry; R09.02 Hypoxemia; N18.32 Chronic kidney disease, stage 3b; E88.09 Other disorders of plasma-protein metabolism, not elsewhere classified; D70.9 Neutropenia, unspecified; D70.3 Neutropenia due to infection; B94.8 Sequelae of other specified infectious and parasitic diseases; Z95.5 Presence of coronary angioplasty implant and graft; Z85.118 Personal history of other malignant neoplasm of bronchus and lung
CPT/HCPCS: 36415; 36600; 71045; 71275; 80053; 82306; 82803; 83036; 83880; 84484; 85025; 85379; 86140; 93005; 99285; J7030; J8540; Q9967; 80048; 81001; 82962; 83735; 84100; 93010; 94640; 94667; 94668; 94761; 94762; 99222; 99232; 99233; 99239; A9270-GY; J0696; J1642; J1650; J1815-GY; U0002

== ENCOUNTER 2021-03-19 11:07 | Emergency (ER) | payer OTHER ==
[2021-03-19 11:20] VITALS: PULSE 112
[2021-03-19] MEDS ORDERED: Sodium Chloride 0.9% 10 ML Syringe FLUSH PRN ×2 (11:25→13:06)
[2021-03-19] MEDS ORDERED: Lactated Ringers 1,000 ML IV SCH (11:30)
--- NOTE | 2021-03-19 12:13 | CR ---
Chest: AP view of the chest was obtained. Comparison: Prior chest x-ray of 12/20/20. Diffuse increased density is seen within the left chest. Pleural thickening is noted within the left lower chest and lateral chest possibly due to small pleural effusion. Right lung is clear. Heart size is slightly prominent. Left-sided infusion port is seen. Impression: 1. Increasing density throughout the left chest with probable pleural effusion. Please correlate if patient has infectious symptoms or if findings are due to worsening neoplasm. 2. Other findings as noted above which are believed to be incidental. Diagnostic code #3
[2021-03-19 12:16] LABS: CORONAVIRUS COVID-19 NAA NEGATIVE (NEGATIVE)
--- NOTE | 2021-03-19 12:30 | EDM.PDOC ---
ED HPI GENERAL MEDICAL PROBLEM - General Chief Complaint: Respiratory Problem Stated Complaint: [facility] Time Seen by Provider: 03/19/21 11:15 Source of Information: Reports: Patient History Limitations: Reports: No Limitations, Other (ED vital signs reveal a temp of 98.1, pulse of 112, respiratory rate 30, blood pressure 153/106, pulse ox 90% on 2 L of oxygen per nasal cannula.) - History of Present Illness INITIAL COMMENTS - FREE TEXT/NARRATIVE: 75-year-old male who presents to the emergency department today by way of ambulance with complaints of a 4-day history of fatigue, cough, shortness of breath, chills, diaphoresis, and diarrhea. The patient states that about 4 days ago he began to have some fatigue with shortness of breath which progressed into a congested persistent cough. He states he then had nausea and vomiting for a couple of days but that has resolved. He states he has had diarrhea for the past 5 days. He does have a history of having Covid in the past for which he was hospitalized in November. He was sent home on home oxygen. He states he has still been using this up until about 4 days ago. However he states he only has been using it for 20 minutes every morning because he feels that it is sufficient. He does have a history of lung cancer of the left lobe for which he completed chemotherapy treatment in October 2020. EMS reports to nursing staff that the patient's O2 saturations on room air were 86%. Onset: Gradual Chest Pain Score (Numeric/FACES): 4 - Related Data Allergies Allergy/AdvReac Type Severity Reaction Status Date / Time celecoxib [From Celebrex] AdvReac Diarrhea Verified 03/19/21 11:21 Home Meds: Home Meds busPIRone HCl [Buspirone HCl] 15 mg PO TID 01/10/15 [History] traZODone 100 mg PO BEDTIME 01/10/15 [History] Albuterol Sulfate [Proair Hfa] 2 puff IH Q4HR PRN 10/16/15 [History] Escitalopram [Lexapro] 20 mg PO DAILY 10/16/15 [History] Tiotropium [Spiriva HandiHaler] 18 mcg INH DAILY 10/16/15 [History] atorvaSTATin [Lipitor] 80 mg PO BEDTIME 10/16/15 [History] Fluticasone Propionate [24 Hour Allergy] 2 spray NS DAILY 12/20/20 [History] Hydrocortisone [Hydrocortisone 2.5% Crm] 1 gm TOP BID PRN 12/20/20 [History] Losartan [Cozaar] 50 mg PO DAILY 12/20/20 [History] guaiFENesin [Guaifenesin] 600 mg PO DAILY 12/20/20 [History] metFORMIN [Glucophage XR] 500 mg PO DAILY 12/20/20 [History] Cholecalciferol (Vitamin D3) [Vitamin D3] 5,000 unit PO DAILY #20 cap 12/25/20 [Rx] Zinc Sulfate [Zincate] 220 mg PO DAILY #20 cap 12/25/20 [Rx] Past Medical History Other HEENT History: wears dentures, chronic sinus infections, cerumen impaction, nasal congestion Cardiovascular History: Reports: High Cholesterol, Hypertension, Stents Other Respiratory History: laryngitis, pharyngitis, URI Other Gastrointestinal History: bloating Genitourinary History: Reports: Other (See Below) Other Genitourinary History: prostate surgery approx 10 yrs ago d/t difficulty urinating Other Musculoskeletal History: arthritis, lumbar back pain, R side rib pain, thoracic back pain, ankle broke 8-9 years ago Other Psychiatric History: insomnia Other Endocrine/Metabolic History: pre diabetes Hematologic History: Reports: Anemia Immunologic History: Reports: Immunosuppression Oncologic (Cancer) History: Reports: Lung Other Oncologic History: Lung cancer diagnosed 1.5 yrs ago Other Dermatologic History: actinic keratosis - Infectious Disease History Infectious Disease History: Reports: Chicken Pox, Measles, Novel Coronavirus Other Infectious Disease History: Covid positive December 05 as per patient - Past Surgical History Other Cardiovascular Surgeries/Procedures: stent placement approximately 2009 GI Surgical History: Reports: Colonoscopy, Hernia Repair/Other Social & Family History - Tobacco Use Tobacco Use Status *Q: Former Tobacco User Used Tobacco, but Quit: Yes Month/Year Tobacco Last Used: Nov 2010 - Caffeine Use Caffeine Use: Reports: Coffee - Recreational Drug Use Recreational Drug Use: No ED ROS GENERAL - Review of Systems Review Of Systems: See Below Constitutional: Reports: Fever, Chills, Fatigue, Diaphoresis HEENT: Reports: No Symptoms Respiratory: Reports: Shortness of Breath, Cough, Sputum Cardiovascular: Reports: Dyspnea on Exertion, Orthopnea. Denies: Chest Pain, Edema, Palpitations Endocrine: Reports: No Symptoms GI/Abdominal: Reports: Diarrhea, Nausea, Vomiting. Denies: Abdominal Pain : Reports: No Symptoms Musculoskeletal: Reports: No Symptoms Skin: Reports: Bruising (right medial foot) Neurological: Reports: No Symptoms Psychiatric: Reports: No Symptoms Hematologic/Lymphatic: Reports: No Symptoms Immunologic: Reports: No Symptoms ED EXAM, GENERAL - Physical Exam Exam: See Below Exam Limited By: No Limitations General Appearance: Alert, WD/WN, Mild Distress (tachypnea at rest) Ears: Normal External Exam, Hearing Grossly Normal Nose: Normal Inspection Throat/Mouth: Normal Inspection, Normal Lips, Normal Voice, No Airway Compromise, Other (mucous membranes are moist) Head: Atraumatic, Normocephalic Neck: Normal Inspection Respiratory/Chest: No Accessory Muscle Use, Chest Non-Tender, Respiratory Distress (mild), Rhonchi (bilaterally). No: No Respiratory Distress, Lungs Clear, Normal Breath Sounds Cardiovascular: Normal Peripheral Pulses, Regular Rate, Rhythm, No Edema, No Murmur Peripheral Pulses: 2+: Radial (L), Radial (R), Dorsalis Pedis (L), Dorsalis Pedis (R) GI/Abdominal: Normal Bowel Sounds, Soft, Non-Tender, No Distention (Male) Exam: Deferred Rectal (Males) Exam: Deferred Back Exam: Normal Inspection, Full Range of Motion Extremities: Normal Inspection, Normal Range of Motion, Non-Tender, No Pedal Edema, Normal Capillary Refill Neurological: Alert, Oriented, Normal Cognition Psychiatric: Normal Affect, Normal Mood Skin Exam: Warm, Dry, Intact, No Rash, Other (bruising noted to medial aspect of right foot; pt does not recall injuring this) Lymphatic: No Adenopathy #1 Interpretation EKG Date: 03/19/21 Time: 11:20 Rhythm: NSR Rate (Beats/Min): 131 [place]far[place]: Normal P-Wave: Present QRS: Normal ST-T: Normal QT: Normal EKG Interpretation Comments: Per Dr. Yun interpretation: sinus tachycardia; inferior infarct, old; lateral leads are also involved; baseline wander in leads v1, v4 Course - Vital Signs Text/Narrative:: 75-year-old male with a 4-day history of fatigue, chills, diaphoresis, cough, shortness of breath, nausea, vomiting and diarrhea. Of note, the patient has history of left lung cancer, finishing chemotherapy treatment in October 2020. He states he had a follow-up PET scan this month for his lung cancer and was told by his oncologist that everything looked good. Patient also does have a history of Covid for which she was hospitalized in November 2020. He was discharged from the hospital on home O2. I suspect the patient may be septic. I have ordered labs, ekg, cxr, bcx2, per the sepsis bundle. Pt will also receive LR at 126ml/hr in addition to the liter of IVF he received from EMS. Last Recorded V/S: Last Vital Signs Temp 98.1 F 03/19/21 11:07 Pulse 112 H 03/19/21 11:07 Resp 30 H 03/19/21 14:35 BP 152/86 H 03/19/21 14:35 Pulse Ox 89 L 03/19/21 14:35 - Orders/Labs/Meds Orders: Active Orders 24 hr Category Date Time Status CULTURE BLOOD [BC] Stat Lab 03/19/21 11:52 Received CULTURE BLOOD [BC] Stat Lab 03/19/21 12:04 Received Blood Culture x2 Reflex Set [OM.PC] Stat Oth 03/19/21 11:26 Ordered Saline Lock Insert [OM.PC] Stat Oth 03/19/21 11:26 Ordered EKG 12 Lead [EK] Stat Ther 03/19/21 11:25 Ordered Labs: Laboratory Tests 03/19/21 03/19/21 03/19/21 Range/Units 11:12 11:52 11:52 WBC 7.08 (4.23-9.07) K/mm3 RBC 4.94 (4.63-6.08) M/mm3 Hgb 14.8 D (13.7-17.5) gm/dl Hct 45.6 (40.1-51.0) % MCV 92.3 H (79.0-92.2) fl MCH 30.0 (25.7-32.2) pg MCHC 32.5 (32.2-35.5) g/dl RDW Std Deviation 51.0 H (35.1-43.9) fL Plt Count 113 L D (163-337) K/mm3 MPV 11.0 (9.4-12.3) fl Neutrophils % (Manual) 90 H (40-60) % Band Neutrophils % 2 (0-10) % Lymphocytes % (Manual) 5 L (20-40) % Atypical Lymphs % 0 % Monocytes % (Manual) 3 (2-10) % Eosinophils % (Manual) 0 L (0.8-7.0) % Basophils % (Manual) 0 L (0.2-1.2) Platelet Estimate Adequate RBC Morph Comment Normal PT (9.7-12.0) SECONDS INR Sodium 137 (136-145) mEq/L Potassium 4.7 (3.5-5.1) mEq/L Chloride 100 (98-107) mEq/L Carbon Dioxide 27 (21-32) mEq/L Anion Gap 14.7 (5-15) BUN 39 H (7-18) mg/dL Creatinine 2.5 H D (0.7-1.3) mg/dL Est Cr Clr Drug Dosing 25.14 mL/min Estimated GFR (MDRD) 25 (>60) mL/min BUN/Creatinine Ratio 15.6 (14-18) Glucose 141 H (83-115) mg/dL Lactic Acid (0.4-2.0) mmol/L Calcium 8.3 L (8.5-10.1) mg/dL Total Bilirubin 0.9 (0.2-1.0) mg/dL AST 16 (15-37) U/L ALT 24 (16-63) U/L Alkaline Phosphatase 45 L (46-116) U/L Troponin I 0.097 H* (0.00-0.056) ng/mL C-Reactive Protein 33.7 H* (<1.0) mg/dL Total Protein 6.5 (6.4-8.2) g/dl Albumin 2.7 L (3.4-5.0) g/dl Globulin 3.8 gm/dL Albumin/Globulin Ratio 0.7 L (1-2) Urine Color (Yellow) Urine Appearance (Clear) Urine pH (5.0-8.0) Ur Specific Napoleon (1.005-1.030) Urine Protein (Negative) Urine Glucose (UA) (Negative) Urine Ketones (Negative) Urine Occult Blood (Negative) Urine Nitrite (Negative) Urine Bilirubin (Negative) Urine Urobilinogen (0.2-1.0) Ur Leukocyte Esterase (Negative) Urine RBC (0-5) /hpf Urine WBC (0-5) /hpf Ur Epithelial Cells (0-5) /hpf Amorphous Sediment (NOT SEEN) /hpf Urine Bacteria (FEW) /hpf Urine Mucus (FEW) /hpf Influenza Type A RNA Negative (NEGATIVE) Influenza Type B RNA Negative (NEGATIVE) SARS-CoV-2 RNA (BEAU) Negative (NEGATIVE) 03/19/21 03/19/21 03/19/21 Range/Units 11:52 11:52 12:58 WBC (4.23-9.07) K/mm3 RBC (4.63-6.08) M/mm3 Hgb (13.7-17.5) gm/dl Hct (40.1-51.0) % MCV (79.0-92.2) fl MCH (25.7-32.2) pg MCHC (32.2-35.5) g/dl RDW Std Deviation (35.1-43.9) fL Plt Count (163-337) K/mm3 MPV (9.4-12.3) fl Neutrophils % (Manual) (40-60) % Band Neutrophils % (0-10) % Lymphocytes % (Manual) (20-40) % Atypical Lymphs % % Monocytes % (Manual) (2-10) % Eosinophils % (Manual) (0.8-7.0) % Basophils % (Manual) (0.2-1.2) Platelet Estimate RBC Morph Comment PT 16.7 H (9.7-12.0) SECONDS INR 1.57 Sodium (136-145) mEq/L Potassium (3.5-5.1) mEq/L Chloride (98-107) mEq/L Carbon Dioxide (21-32) mEq/L Anion Gap (5-15) BUN (7-18) mg/dL Creatinine (0.7-1.3) mg/dL Est Cr Clr Drug Dosing mL/min Estimated GFR (MDRD) (>60) mL/min BUN/Creatinine Ratio (14-18) Glucose (83-115) mg/dL Lactic Acid 2.6 H* (0.4-2.0) mmol/L Calcium (8.5-10.1) mg/dL Total Bilirubin (0.2-1.0) mg/dL AST (15-37) U/L ALT (16-63) U/L Alkaline Phosphatase (46-116) U/L Troponin I (0.00-0.056) ng/mL C-Reactive Protein (<1.0) mg/dL Total Protein (6.4-8.2) g/dl Albumin (3.4-5.0) g/dl Globulin gm/dL Albumin/Globulin Ratio (1-2) Urine Color Dark yellow (Yellow) Urine Appearance Clear (Clear) Urine pH 5.5 (5.0-8.0) Ur Specific Napoleon > or = 1.030 (1.005-1.030) Urine Protein 2+ H (Negative) Urine Glucose (UA) Negative (Negative) Urine Ketones Negative (Negative) Urine Occult Blood Trace-intact H (Negative) Urine Nitrite Negative (Negative) Urine Bilirubin Negative (Negative) Urine Urobilinogen 1.0 (0.2-1.0) Ur Leukocyte Esterase Negative (Negative) Urine RBC 0-5 (0-5) /hpf Urine WBC 5-10 H (0-5) /hpf Ur Epithelial Cells 0-5 (0-5) /hpf Amorphous Sediment Many H (NOT SEEN) /hpf Urine Bacteria Few (FEW) /hpf Urine Mucus Few (FEW) /hpf Influenza Type A RNA (NEGATIVE) Influenza Type B RNA (NEGATIVE) SARS-CoV-2 RNA (BEAU) (NEGATIVE) 03/19/21 03/19/21 Range/Units 14:10 14:10 WBC (4.23-9.07) K/mm3 RBC (4.63-6.08) M/mm3 Hgb (13.7-17.5) gm/dl Hct (40.1-51.0) % MCV (79.0-92.2) fl MCH (25.7-32.2) pg MCHC (32.2-35.5) g/dl RDW Std Deviation (35.1-43.9) fL Plt Count (163-337) K/mm3 MPV (9.4-12.3) fl Neutrophils % (Manual) (40-60) % Band Neutrophils % (0-10) % Lymphocytes % (Manual) (20-40) % Atypical Lymphs % % Monocytes % (Manual) (2-10) % Eosinophils % (Manual) (0.8-7.0) % Basophils % (Manual) (0.2-1.2) Platelet Estimate RBC Morph Comment PT (9.7-12.0) SECONDS INR Sodium (136-145) mEq/L Potassium (3.5-5.1) mEq/L Chloride (98-107) mEq/L Carbon Dioxide (21-32) mEq/L Anion Gap (5-15) BUN (7-18) mg/dL Creatinine (0.7-1.3) mg/dL Est Cr Clr Drug Dosing mL/min Estimated GFR (MDRD) (>60) mL/min BUN/Creatinine Ratio (14-18) Glucose (83-115) mg/dL Lactic Acid 2.2 H* (0.4-2.0) mmol/L Calcium (8.5-10.1) mg/dL Total Bilirubin (0.2-1.0) mg/dL AST (15-37) U/L ALT (16-63) U/L Alkaline Phosphatase (46-116) U/L Troponin I 0.090 H* (0.00-0.056) ng/mL C-Reactive Protein (<1.0) mg/dL Total Protein (6.4-8.2) g/dl Albumin (3.4-5.0) g/dl Globulin gm/dL Albumin/Globulin Ratio (1-2) Urine Color (Yellow) Urine Appearance (Clear) Urine pH (5.0-8.0) Ur Specific Napoleon (1.005-1.030) Urine Protein (Negative) Urine Glucose (UA) (Negative) Urine Ketones (Negative) Urine Occult Blood (Negative) Urine Nitrite (Negative) Urine Bilirubin (Negative) Urine Urobilinogen (0.2-1.0) Ur Leukocyte Esterase (Negative) Urine RBC (0-5) /hpf Urine WBC (0-5) /hpf Ur Epithelial Cells (0-5) /hpf Amorphous Sediment (NOT SEEN) /hpf Urine Bacteria (FEW) /hpf Urine Mucus (FEW) /hpf Influenza Type A RNA (NEGATIVE) Influenza Type B RNA (NEGATIVE) SARS-CoV-2 RNA (BEAU) (NEGATIVE) Meds: Medications Discontinued Medications Generic Name Dose Route Start Last Admin Trade Name Freq PRN Reason Stop Dose Admin Lactated Ringer's 1,000 mls @ 126 mls/hr 03/19/21 11:30 03/19/21 12:29 Ringers, Lactated IV 126 mls/hr ASDIRECTED MARK Administration Lactated Ringer's 500 mls @ 250 mls/hr 04/27/21 14:04 03/19/21 14:24 Ringers, Lactated IV 03/19/21 16:03 250 mls/hr .BOLUS ONE Administration Ceftriaxone Sodium 2 gm/ 100 mls @ 200 mls/hr 03/19/21 14:23 03/19/21 14:34 Sodium Chloride IV 03/19/21 14:52 200 mls/hr ONETIME ONE Administration Lactated Ringer's 500 mls @ 250 mls/hr 03/19/21 15:42 Ringers, Lactated IV 03/19/21 17:41 .BOLUS ONE Lactated Ringer's 500 mls @ 500 mls/hr 03/19/21 15:54 03/19/21 16:20 Ringers, Lactated IV 03/19/21 16:53 Not Given .BOLUS ONE Sodium Chloride 1,000 mls @ 125 mls/hr 03/19/21 16:15 03/19/21 16:20 Normal Saline IV 125 mls/hr ASDIRECTED MARK Administration Iopamidol 100 ml 03/19/21 13:06 Iopamidol 612 Mg/Ml 100 Ml Bottle IVPUSH 03/19/21 13:07 ONETIME ONE Sodium Chloride 10 ml 03/19/21 11:25 03/19/21 11:37 Sodium Chloride 0.9% 10 Ml Syringe FLUSH 10 ml ASDIRECTED PRN Administration Keep Vein Open Sodium Chloride 10 ml 03/19/21 13:06 03/19/21 14:25 Sodium Chloride 0.9% 10 Ml Syringe FLUSH 10 ml ONETIME PRN Administration IV FLUSH - Re-Assessments/Exams Free Text/Narrative Re-Assessment/Exam: 03/19/21 12:48 Portable view of the chest radiologist impression: 1. Increasing density throughout the left chest with probable pleural effusion. Please correlate if patient has infectious symptoms or if findings are due to worsening neoplasm. 2. Other findings as noted above which are believed to be incidental. 03/19/21 12:56 I have ordered for the patient to have a CT of the chest to further evaluate impression of his lungs. Patient now states that he is coughing up bloody sputum. There is pink-tinged sputum noted on his gown. 03/19/21 13:53 Hematology reveals a WBC of 7.08, hemoglobin 14.8, hematocrit 45.6, platelet count 113, neutrophil percentage 90 with 2% bands, lymphocytes 5%, coagulation reveals a pro time of 16.7, INR of 1.57, chemistry reveals sodium of 137, potassium 4.7, carbon dioxide 27, anion gap 14.7, BUN 39, creatinine 2.5, GFR 25, glucose 141, lactic acid 2.6, calcium 8.3, alk phos 45, troponin 0 0.097, C- reactive protein 33.7 Urinalysis reveals 2+ protein, trace of intact occult blood, nitrite negative, leuk esterase negative, urine WBC 5-10 Serology reveals influenza a, B and Covid swabs are all negative. I discussed this case with Dr. Yun, and he recommends a repeat troponin II hours after initial draw. I have ordered this and CT of the chest is pending. 03/19/21 14:05 Nursing staff reports that the patient's heart rate is in the 130's. Pt's blood pressure is 160/102 and his O2 sats are 88% on 2liters per nasal cannula. I discussed the case with Dr. Yun and he recommends I give the patient a 250ml fluid bolus and repeat if the patient tolerates it well. 03/19/21 14:[address] of the chest radiologist impression: 1. Diffuse increased density within the left chest. Findings most likely represent pneumonia. Please correlate that the patient has correlating symptoms. 2. Small pericardial effusion which is an interval change from prior exam. 3. Other findings believed to be stable. Note, if antibiotics are chosen, recommend repeat chest x-ray to confirm resolution in the future. I have ordered for this patient to receive 2 g of Rocephin. Waiting on the results of the repeat lactic acid and troponin. 03/19/21 14:58 I do feel that this patient needs to be admitted to the hospital. I have called our hospitalist slot floor person, and he does not feel comfortable taking the patient under his care with his elevation in troponins. I have called [facility] in [place], and they will be calling me back as they have 2 calls ahead of me. 03/19/21 15:57 [facility] in [place] has not returned my phone call. I have phoned [facility] in [place] and reported off to , hospitalist, and she has accepted care of this patient in transfer. The patient will be transferred by ambulance. Departure - Departure Time of Disposition: 16:48 Disposition: DC/Tfer to [facility] 02 Condition: Fair Clinical Impression: Elevated troponin Pneumonia Qualifiers: Pneumonia type: due to unspecified organism Laterality: left Lung location: unspecified part of lung Qualified Code(s): J18.9 - Pneumonia, unspecified organism - Discharge Information Referrals: Martha Hartman [facility] [Primary Care Provider] - Forms: ED Department Discharge Sepsis Event Note (ED) - Evaluation Sepsis Screening Result: Possible Sepsis Risk - My Orders Last 24 Hours: My Active Orders 03/19/21 11:25 EKG 12 Lead [EK] Stat 03/19/21 11:26 Blood Culture x2 Reflex Set [OM.PC] Stat Saline Lock Insert [OM.PC] Stat 03/19/21 11:52 CULTURE BLOOD [BC] Stat 03/19/21 12:04 CULTURE BLOOD [BC] Stat - Assessment/Plan Last 24 Hours: My Active Orders 03/19/21 11:25 EKG 12 Lead [EK] Stat 03/19/21 11:26 Blood Culture x2 Reflex Set [OM.PC] Stat Saline Lock Insert [OM.PC] Stat 03/19/21 11:52 CULTURE BLOOD [BC] Stat 03/19/21 12:04 CULTURE BLOOD [BC] Stat
[2021-03-19] MEDS ORDERED: Iopamidol 612 MG/ML 100 ML Bottle IVPUSH ONE (13:06)
[2021-03-19] MEDS ORDERED: Lactated Ringers 500 ML IV ONE ×3 (14:04→15:54)
--- NOTE | 2021-03-19 14:17 | CT ---
Noncontrast chest CT Technique: Multiple axial sections were obtained from above the lung apices inferiorly through the lung bases. Intravenous contrast was not utilized. Reconstructed coronal and sagittal images were obtained. Comparison: Recent chest x-ray performed earlier on the same day, prior chest CT study 12/20/20, prior chest CT study of 12/20/20. Findings: Diffuse increased density is identified within the left lung. This is an interval change from prior chest CT. There is slight pleural thickening within the left chest which appears to be fairly stable from prior exam. Right lung appears clear without acute parenchymal change. Emphysematous changes are present. Thoracic aorta shows atherosclerotic change without aneurysm. Small mediastinal lymph nodes are noted which are felt to be within normal limits. Very slight pericardial thickening is seen which has the appearance of a small pericardial effusion. Visualized upper abdominal structures show nothing acute. Left-sided infusion port is noted. Bone window settings were reviewed which show scattered degenerative change throughout the spine. No acute osseous finding is seen. Impression: 1. Diffuse increased density within the left chest. Findings most likely represent pneumonia. Please correlate that patient has correlating symptoms. 2. Small pericardial effusion which is an interval change from prior exam. 3. Other findings believed to be stable as noted above. Note: If antibiotics are chosen, recommend repeat chest x-ray to confirm resolution in the future. Diagnostic code #3
[2021-03-19] MEDS ORDERED: cefTRIAXone 2 GM in Sodium Chloride 0.9% 100 ML IV ONE (14:23)
[2021-03-19 14:35] VITALS: BP 152/86
[2021-03-19] MEDS ORDERED: Sodium Chloride 0.9% 1,000 ML IV SCH (16:15)
== END 2021-03-19 16:48 ==
LOC: JD.ED 11:07
DX: J18.9 Pneumonia, unspecified organism (principal); E78.00 Pure hypercholesterolemia, unspecified; I10 Essential (primary) hypertension; R73.03 Prediabetes; R79.89 Other specified abnormal findings of blood chemistry; Z20.822 Contact with and (suspected) exposure to COVID-19; Z88.8 Allergy status to other drugs, medicaments and biological substances; Z79.84 Long term (current) use of oral hypoglycemic drugs; Z79.899 Other long term (current) drug therapy; Z87.891 Personal history of nicotine dependence
CPT/HCPCS: 0240U; 36415; 71045; 71250; 80053; 81001; 83605; 84484; 85007; 85027; 85610; 86140; 87040; 93005; 96365; 99285; J0696; J7030; J7120; 93010

== ENCOUNTER 2022-03-16 20:39 | Inpatient (IN) | payer MEDICARE, OTHER ==
[2022-03-16] MEDS ORDERED: Sodium Chloride 0.9% 10 ML Syringe FLUSH PRN (20:57)
[2022-03-16] MEDS ORDERED: Sodium Chloride 0.9% 1,000 ML IV ONE (20:58)
[2022-03-16] MEDS ORDERED: Ondansetron 4 MG/2 ML SDV IVPUSH ONE (20:58)
[2022-03-16] MEDS ORDERED: Albuterol 0.083% 2.5 MG/3 ML Neb Soln NEB ONE (21:13)
[2022-03-16 22:07] LABS: CORONAVIRUS COVID-19 NAA NEGATIVE (NEGATIVE)
[2022-03-16] MEDS ORDERED: Levofloxacin/Dextrose 5%-Water 750 MG in Premix Bag 1 BAG IV ONE (22:18)
[2022-03-16] MEDS ORDERED: Albuterol/Ipratropium 3.0-0.5 MG/3 ML Neb Soln NEB PRN (23:14)
[2022-03-16] MEDS ORDERED: Ondansetron 4 MG/2 ML SDV IVPUSH PRN (23:16)
[2022-03-16] MEDS ORDERED: Sodium Chloride 0.9% 1,000 ML IV SCH (23:30)
[2022-03-17] MEDS: Acetaminophen 325 MG Tab PO PRN ×2 (03:49→15:45)
[2022-03-17] MEDS: Albuterol/Ipratropium 3.0-0.5 MG/3 ML Neb Soln NEB SCH ×4 (05:58→20:18)
[2022-03-17] MEDS ORDERED: Albuterol 6.7 GM Inhaler INH PRN (06:38)
[2022-03-17] MEDS ORDERED: Docusate Sodium 100 MG Cap PO PRN (07:42)
[2022-03-17] MEDS ORDERED: Temazepam 7.5 MG Cap PO PRN (07:42)
[2022-03-17] MEDS ORDERED: oxyCODONE 5 MG Tab PO PRN (07:42)
[2022-03-17] MEDS ORDERED: Sodium Chloride 0.9% 10 ML Syringe FLUSH PRN (07:49)
[2022-03-17] MEDS ORDERED: Losartan 50 MG Tab PO SCH (09:00)
[2022-03-17] MEDS: Cetirizine 10 MG Tab PO SCH (09:01)
[2022-03-17] MEDS: Zinc Sulfate 220 MG Cap PO SCH (09:01)
[2022-03-17] MEDS: busPIRone 15 MG Tab PO SCH ×3 (09:01→21:00)
[2022-03-17] MEDS: Heparin Sodium 5,000 Units/ML Vial SUBCUT SCH ×2 (09:01→15:37)
[2022-03-17] MEDS: Insulin Regular, Human 100 Units/ML 3 ML Vial SUBCUT SCH ×3 (09:08→18:08)
[2022-03-17] MEDS: GUAIFENESIN 600 MG PO SCH (12:05)
[2022-03-17] MEDS: METFORMIN 1000 MG PO SCH (12:05)
[2022-03-17] MEDS ORDERED: Hydrocortisone 1% Crm 30 GM Tube TOP PRN (14:39)
[2022-03-17] MEDS ORDERED: traZODone 50 MG Tab ONE (20:51)
[2022-03-17] MEDS ORDERED: TRAZODONE 100 MG PO SCH (21:00)
[2022-03-17] MEDS ORDERED: Aluminum Hydroxide/Magnesium Hydroxide/Simethicone Susp 30 ML Cup PO PRN (21:06)
[2022-03-18] MEDS: Heparin Sodium 5,000 Units/ML Vial SUBCUT SCH ×3 (00:27→15:41)
[2022-03-18] MEDS: Albuterol/Ipratropium 3.0-0.5 MG/3 ML Neb Soln NEB SCH ×4 (05:57→20:31)
[2022-03-18] MEDS: Insulin Regular, Human 100 Units/ML 3 ML Vial SUBCUT SCH ×3 (08:01→18:19)
[2022-03-18] MEDS ORDERED: Losartan 100 MG Tab **PTOM PO SCH (09:00)
[2022-03-18] MEDS: Zinc Sulfate 220 MG Cap PO SCH (09:06)
[2022-03-18] MEDS: busPIRone 15 MG Tab PO SCH ×3 (09:06→20:09)
[2022-03-18] MEDS: Cetirizine 10 MG Tab PO SCH (09:06)
[2022-03-18] MEDS: GUAIFENESIN 600 MG PO SCH (09:10)
[2022-03-18] MEDS: METFORMIN 1000 MG PO SCH (09:10)
[2022-03-18] MEDS ORDERED: traZODone 50 MG Tab PO SCH (21:00)
[2022-03-18] MEDS ORDERED: Levofloxacin/Dextrose 5%-Water 750 MG in Premix Bag 1 BAG IV SCH (21:00)
[2022-03-19] MEDS: Heparin Sodium 5,000 Units/ML Vial SUBCUT SCH ×2 (00:45→08:12)
[2022-03-19] MEDS: Albuterol/Ipratropium 3.0-0.5 MG/3 ML Neb Soln NEB SCH ×2 (05:52→10:24)
[2022-03-19] MEDS: Acetaminophen 325 MG Tab PO PRN (06:14)
[2022-03-19] MEDS: Cetirizine 10 MG Tab PO SCH (08:13)
[2022-03-19] MEDS: Zinc Sulfate 220 MG Cap PO SCH (08:13)
[2022-03-19] MEDS: busPIRone 15 MG Tab PO SCH ×2 (08:13→14:12)
[2022-03-19] MEDS: Insulin Regular, Human 100 Units/ML 3 ML Vial SUBCUT SCH ×2 (08:17→12:21)
[2022-03-19] MEDS ORDERED: Losartan 100 MG Tab PO SCH (09:00)
[2022-03-19] MEDS ORDERED: guaiFENesin 600 MG Tab.ER PO SCH (09:00)
[2022-03-19] MEDS ORDERED: metFORMIN 500 MG Tab PO SCH (09:00)
[2022-03-19 11:31] VITALS: BP 131/74; PULSE 86
== END 2022-03-19 15:23 | disposition home or self-care (01) | DRG 194 ==
LOC: JD.ED 20:39 → JD.MS 22:38 → OBSVTOIN 03-18 08:42
PROVIDERS: ADMIT Internal Medicine; ATTEND Internal Medicine
DX: J18.9 Pneumonia, unspecified organism (principal); J90 Pleural effusion, not elsewhere classified; D84.9 Immunodeficiency, unspecified; N18.32 Chronic kidney disease, stage 3b; G89.29 Other chronic pain; M54.6 Pain in thoracic spine; M54.50 Low back pain, unspecified; I12.9 Hypertensive chronic kidney disease with stage 1 through stage 4 chronic kidney disease, or unspecified chronic kidney disease; R73.03 Prediabetes; Z20.822 Contact with and (suspected) exposure to COVID-19; E78.00 Pure hypercholesterolemia, unspecified; M19.90 Unspecified osteoarthritis, unspecified site; C34.90 Malignant neoplasm of unspecified part of unspecified bronchus or lung; D64.9 Anemia, unspecified; Z79.84 Long term (current) use of oral hypoglycemic drugs; Z79.899 Other long term (current) drug therapy; J43.2 Centrilobular emphysema; R59.0 Localized enlarged lymph nodes; G47.00 Insomnia, unspecified; Z87.891 Personal history of nicotine dependence; Z88.8 Allergy status to other drugs, medicaments and biological substances; Z95.5 Presence of coronary angioplasty implant and graft; Z99.81 Dependence on supplemental oxygen; Z86.16 Personal history of COVID-19
CPT/HCPCS: 0240U; 36415; 51798; 71045; 71250; 80053; 82947; 83735; 85025; 87040; 94640; 94667; 94668; 94761; 94762; 97110; 97112; 97116; 97161; A9270-GY; J1644; J1815-GY; J1956; J2405; J3490; J7030; J7620-GY

== ENCOUNTER 2022-05-15 08:54 | Day surgery (SDC) | payer OTHER ==
[2022-05-15] MEDS: Polymyxin B/Trimethoprim 10 ML Bottle EYELF SCH ×4 (09:08→10:52)
[2022-05-15] MEDS: Brimonidine 0.2% Ophth Soln 5 ML Bottle EYELF SCH ×4 (09:13→10:52)
[2022-05-15] MEDS: Phenylephrine 2.5% Ophth Soln 2 ML Bot EYELF SCH ×6 (09:18→10:30)
[2022-05-15] MEDS: Tropicamide 1% Ophth Soln 15 ML Bottle EYELF SCH ×4 (09:24→10:01)
[2022-05-15] MEDS: Tetracaine HCl/PF 0.5% 4 ML Bottle EYEBOTH SCH ×5 (10:06→10:34)
[2022-05-15] MEDS: Lidocaine 1% PF 2 ML SDV INJECT SCH ×2 (10:06→10:34)
[2022-05-15] MEDS: Cefuroxime 10 MG/ML SYRINGE EYELF SCH ×2 (10:06→10:51)
[2022-05-15] MEDS: Pilocarpine 4% Ophth Soln 15 ML Bot EYELF SCH ×2 (10:07→10:52)
[2022-05-15 11:06] VITALS: BP 137/68; PULSE 68
== END 2022-05-15 11:01 | disposition home or self-care (01) ==
LOC: JD.SDS 08:54
PROVIDERS: ATTEND Ophthalmology
DX: E11.36 Type 2 diabetes mellitus with diabetic cataract (principal); H25.813 Combined forms of age-related cataract, bilateral; H21.81 Floppy iris syndrome; H21.42 Pupillary membranes, left eye; H35.3131 Nonexudative age-related macular degeneration, bilateral, early dry stage; H35.363 Drusen (degenerative) of macula, bilateral; H16.223 Keratoconjunctivitis sicca, not specified as Sjogren's, bilateral; H16.103 Unspecified superficial keratitis, bilateral; I25.10 Atherosclerotic heart disease of native coronary artery without angina pectoris; I10 Essential (primary) hypertension; F41.9 Anxiety disorder, unspecified; E78.00 Pure hypercholesterolemia, unspecified; Z88.6 Allergy status to analgesic agent; Z87.891 Personal history of nicotine dependence; Z79.84 Long term (current) use of oral hypoglycemic drugs; Z79.899 Other long term (current) drug therapy
CPT/HCPCS: J0697

== ENCOUNTER 2025-01-24 15:15 | Emergency (ER) | payer MEDICARE ==
[2025-01-24] MEDS: Amoxicillin/Clavulanate K 875-125 MG Tab PO ONE (16:58)
[2025-01-24] MEDS: Doxycycline Monohydrate 100 MG Cap PO ONE (16:58)
[2025-01-24 17:21] VITALS: BP 160/90; PULSE 87
== END 2025-01-24 17:10 | disposition home or self-care (01) ==
LOC: JD.ED 15:15
DX: J18.9 Pneumonia, unspecified organism (principal); I10 Essential (primary) hypertension; E78.00 Pure hypercholesterolemia, unspecified; Z88.8 Allergy status to other drugs, medicaments and biological substances; Z79.899 Other long term (current) drug therapy; Z86.16 Personal history of COVID-19; Z87.891 Personal history of nicotine dependence
CPT/HCPCS: 93005; 99284; A9270; 71046; 71046-26; 93010